=== PATIENT | female | born 1950 | race Caucasian/White ===

== ENCOUNTER → 2019-06-09 | Outpatient (CLI) | payer SELFPAY | PROVIDERS: Family Provider Nurse Practitioner; Visit Provider Nurse Practitioner | DX: I65.23 Occlusion and stenosis of bilateral carotid arteries (principal) | CPT/HCPCS: 93880 ==

== ENCOUNTER 2019-06-24 13:15 | Outpatient (CLI) | payer MEDICARE, MEDICAID, SELFPAY ==
--- NOTE | 2019-06-24 13:43 | CT_ITS ---
WS: [id number] CT CHEST TECHNIQUE: Noncontrast CT of the chest with coronal and sagittal reformatted images. CLINICAL INFORMATION: COPD, MODERATE COMPARISON: CT 8 30,019 DLP: 591.[address] scans at [facility] use at least one of these dose optimization techniques: automat ed exposure control; mA and/or kV adjustment per patient size (includes targeted exams where dose is matched to clinical indication); or iterative reconstruction. FINDINGS: Again seen is the lobulated cyst right middle lobe with a few septations and wall thickening along th e inferior margin which is unchanged. Recommend continued surveillance. Moderate chronic emphysematous changes. No acute pulmonary infiltrates. Subsegmental atelectasis righ t lung base. Aortic calcification. Coronary calcification. Calcified mediastinal nodes. No mediastina l or hilar lymphadenopathy. Adrenal glands are normal. Normal thoracic spine. CT/CT chest wo con [id number] IMPRESSION: 1. Stable lobulated cystic lesion in the right middle lobe with a small amount of soft tissue thickening along the inferior margin is unchanged. Recommend co ntinued surveillance with six-month follow-up 2. No mediastinal or hilar lymphadenopathy. 3. Chronic emphysematous changes. 4. Subsegmental atelectasis right lung base.
== END 2019-06-24 13:16 | disposition home or self-care (01) ==
PROVIDERS: Family Provider Nurse Practitioner; PCP Nurse Practitioner; Visit Provider Nurse Practitioner
DX: J43.9 Emphysema, unspecified (principal); J98.11 Atelectasis; R91.1 Solitary pulmonary nodule
CPT/HCPCS: 71250

== ENCOUNTER → 2019-11-20 09:50 | Outpatient (BNVA) | payer MEDICARE, MEDICAID, SELFPAY | PROVIDERS: Family Provider Nurse Practitioner; PCP Nurse Practitioner; Visit Provider Nurse Practitioner | DX: E78.2 Mixed hyperlipidemia (principal); I65.29 Occlusion and stenosis of unspecified carotid artery; J44.9 Chronic obstructive pulmonary disease, unspecified; F41.9 Anxiety disorder, unspecified; A60.00 Herpesviral infection of urogenital system, unspecified | CPT/HCPCS: 80053; 80061; 84443; 85025 ==

== ENCOUNTER 2019-12-16 09:08 | Outpatient (CLI) | payer MEDICARE, MEDICAID, SELFPAY ==
--- NOTE | 2019-12-16 09:18 | MM_ITS ---
WS: [id number] BILATERAL DIGITAL SCREENING MAMMOGRAPHY WITH CAD CLINICAL INFORMATION: SCREENING HISTORY: Screening mammogram. No current complaints. COMPARISON: TECHNIQUE: Bilateral CC and MLO views. FINDINGS: The breasts are composed of heterogeneous fibroglandular density tissue, which can limit the detectio n of small underlying mass lesions. No suspicious mass, asymmetry, calcifications, or architectural d istortion. No evidence of malignancy. Vascular calcification. Stable lucent centered calcification. MM/[place] [id number] IMPRESSION: BI-RADS: 2-Benign FOLLOW UP: 1 Year Follow-up Recommend return to annual screening mammography.
== END 2019-12-16 09:09 | disposition home or self-care (01) ==
LOC: RADSHAW 09:12
PROVIDERS: PCP Nurse Practitioner; Visit Provider Nurse Practitioner
DX: Z12.31 Encounter for screening mammogram for malignant neoplasm of breast (principal)
CPT/HCPCS: 77067

== ENCOUNTER → 2020-03-07 11:00 | Outpatient (BNVA) | payer MEDICARE, MEDICAID, SELFPAY | PROVIDERS: PCP Nurse Practitioner; Visit Provider Nurse Practitioner | DX: E78.2 Mixed hyperlipidemia (principal); J44.9 Chronic obstructive pulmonary disease, unspecified | CPT/HCPCS: 80053 ==

== ENCOUNTER 2020-03-15 08:16 | Outpatient (CLI) | payer MEDICARE, MEDICAID, SELFPAY ==
--- NOTE | 2020-03-15 08:45 | CT_ITS ---
WS: [id number] CT CHEST WITHOUT INTRAVENOUS CONTRAST HISTORY: 6 month f/u for 12/2019 TECHNIQUE: Contiguous 5 mm axial imaging performed on the thorax. Coronal and sagittal reformats are submitted. All CT scans at [facility] use at least one of these dose optimization techniq ues: automated exposure control; mA and/or kV adjustment per patient size (includes targeted exams wh ere dose is matched to clinical indication); or iterative reconstruction. CONTRAST: None DLP: 617.11 mGycm COMPARISON: 06/24/2019, 03/09/2019, 11/10/2018 Lungs and central airway: Marked pulmonary hyperinflation. Lobulated cystic mass in the RIGHT middle lobe measures 2.7 x 4.3 cm. Stable lateral nodular thickening since 06/24/2019. Also stable since 2018. No new nodules or mass or pneumonia. Linear scarring or atelectasis at the RIGHT lung base. Pleura: Normal. No pleural effusion. Heart and pericardium: Normal size heart. Small amount of pericardial thickening anteriorly. Mediastinum and davida: No mediastinum or hilar adenopathy. Vessels: Mild atherosclerosis aorta with no aneurysm. Pulmonary artery size is near equal to the aort a. Chest wall and lower neck: No soft tissue masses. Upper abdomen: Splenic granulomata. Osseous structures: No destructive process. CT/CT chest wo con [id number] IMPRESSION: 1. Lobulated cystic mass with soft tissue thickening is unchanged. No interval change since 11/10/2018. Recommend [address] follow-up to de monstrate long-term stability. 2. No adenopathy. 3. Severe emphysema.
== END 2020-03-15 08:17 | disposition home or self-care (01) ==
LOC: RADWPI 08:22
PROVIDERS: PCP Nurse Practitioner; Visit Provider Nurse Practitioner
DX: J44.9 Chronic obstructive pulmonary disease, unspecified (principal); R22.2 Localized swelling, mass and lump, trunk
CPT/HCPCS: 71250

== ENCOUNTER → 2020-08-09 12:17 | Outpatient (BNVA) | payer OTHER, MEDICAID, SELFPAY | PROVIDERS: PCP Nurse Practitioner; Visit Provider Nurse Practitioner | DX: J44.9 Chronic obstructive pulmonary disease, unspecified (principal); F41.9 Anxiety disorder, unspecified; A60.00 Herpesviral infection of urogenital system, unspecified; E78.2 Mixed hyperlipidemia | CPT/HCPCS: 80053; 80061; 84443; 85025 ==

== ENCOUNTER → 2020-08-10 15:43 | Outpatient (BNVA) | payer OTHER, MEDICAID, SELFPAY | PROVIDERS: PCP Nurse Practitioner; Visit Provider Nurse Practitioner | DX: M54.2 Cervicalgia (principal); M25.511 Pain in right shoulder; J44.9 Chronic obstructive pulmonary disease, unspecified; F41.9 Anxiety disorder, unspecified; A60.00 Herpesviral infection of urogenital system, unspecified; E78.2 Mixed hyperlipidemia | CPT/HCPCS: 71046; 72040; 73030 ==

== ENCOUNTER → 2020-08-16 12:06 | Outpatient (BNVA) | payer OTHER, MEDICAID, SELFPAY | PROVIDERS: PCP Nurse Practitioner; Visit Provider Nurse Practitioner | DX: M50.30 Other cervical disc degeneration, unspecified cervical region (principal); R59.9 Enlarged lymph nodes, unspecified; E55.9 Vitamin D deficiency, unspecified | CPT/HCPCS: 82306 ==

== ENCOUNTER 2020-11-03 11:09 | Outpatient (CLI) | payer MEDICARE, MEDICAID, SELFPAY ==
--- NOTE | 2020-11-03 11:18 | CT_ITS ---
WS: [id number] CT NECK TECHNIQUE: Contrast-enhanced CT of the neck with coronal and sagittal reformatted images. CLINICAL INFORMATION: R59.9 - Enlarged lymph nodes, unspecified COMPARISON: None. DLP: 640.[address] scans at [facility] use at least one of these dose optimization techniques: automat ed exposure control; mA and/or kV adjustment per patient size (includes targeted exams where dose is matched to clinical indication); or iterative reconstruction. FINDINGS: Motion degrades some images Palpable markers overlying the submandibular glands bilaterally. Submandibular glands are normal. Add itional palpable marker overlying the left parotid gland. There is a small amount of induration and e zoe in the subcutaneous soft tissues in this area and left parotid gland. Motion degrades images in this area but no evidence of intraparotid mass or lesion. Small amount of induration extends along th e left platysma. Recommend clinical correlation for left parotiditis. No evidence of drainable absces s or fluid collection. Partially visualized intracranial contents are normal. Mastoid air cells and paranasal sinuses are we ll aerated. No evidence of supraglottic or glottic mass. Normal tongue base. Normal subglottic airway . Normal thyroid gland. Lung apices are well aerated. CT/CT neck w con* [id number] IMPRESSION:Some images degraded by patient motion 1. Multiple palpable markers overlying the submandibular glands and Left parot id gland. 2. Submandibular glands are normal in appearance. 3. Mild induration and inflammatory changes about the left parotid gland exten ding along the left platysma. Recommend correlation for parotiditis. No drainab le abscess or fluid collection. 4. No evidence of supraglottic or glottic mass. 5. No cervical lymphadenopathy.
[2020-11-03] MEDS: iohexol 300 mg/mL 100 mL Btl IV (12:17)
[2020-11-03 12:18] LABS: Blood Urea Nitrogen 9 mg/dL (8-23); Glomerular Filtration Rate 99.7 mL/min (90-130)
== END 2020-11-03 11:10 | disposition home or self-care (01) ==
PROVIDERS: PCP Nurse Practitioner; Visit Provider Nurse Practitioner
DX: R59.9 Enlarged lymph nodes, unspecified (principal)
CPT/HCPCS: 70491; 82565; 84520; Q9967

== ENCOUNTER 2020-11-14 15:28 | Outpatient (CLI) | payer MEDICARE, MEDICAID, SELFPAY ==
--- NOTE | 2020-11-14 15:36 | MR_ITS ---
WS: [id number] MRI RIGHT HUMERUS NONCONTRAST TECHNIQUE: Sagittal T2, coronal T1, T2 and proton density imaging. Axial gradient PDE imaging. CLINICAL INFORMATION: S46.219A - Strain of muscle, fascia and tendon of other p... COMPARISON: None. FINDINGS: Some images degraded by motion artifact. Normal bone marrow signal in the right humerus. No acute fractures. Partially visualized rotator cuff appears intact. Tear of the long head of the biceps brachia at the musculotendinous junction with di ffuse edema and irregularity. Fluid along the proximal biceps tendon sheath. Biceps tendon is absent within the proximal bicipital groove consistent with tear which may be chronic. Subscapularis appears intact. Distal biceps tendon appears intact at the radial tuberosity.Degenerat caesar fraying of the glenoid labrum. MR/MR humerus RT wo con* [id number] IMPRESSION: 1. Proximal biceps tendon is absent within the bicipital groove consistent wit h biceps tendon tear. This may be chronic. Fluid along the biceps tendon sheath . 2. In addition, high-grade tear of the long head biceps brachi at the musculot endinous junction with acute appearing edema and irregularity. There appears to be a small amount of residual intact tendon. 3. Partially visualized rotator cuff is intact. 4. Distal biceps tendon appears intact at the radial tuberosity.
== END 2020-11-14 15:29 | disposition home or self-care (01) ==
PROVIDERS: PCP Nurse Practitioner; Visit Provider Nurse Practitioner
DX: S46.211A Strain of muscle, fascia and tendon of other parts of biceps, right arm, initial encounter (principal); X58.XXXA Exposure to other specified factors, initial encounter
CPT/HCPCS: 73218

== ENCOUNTER → 2021-01-11 12:01 | Outpatient (BNVA) | payer MEDICARE, MEDICAID, SELFPAY | PROVIDERS: PCP Nurse Practitioner; Visit Provider Nurse Practitioner Family | DX: J44.1 Chronic obstructive pulmonary disease with (acute) exacerbation (principal); Z11.52 Encounter for screening for COVID-19 | CPT/HCPCS: 87635 ==

== ENCOUNTER → 2021-03-14 16:01 | Outpatient (BNVA) | payer MEDICARE, MEDICAID, SELFPAY | PROVIDERS: PCP Nurse Practitioner; Visit Provider Nurse Practitioner | DX: F41.9 Anxiety disorder, unspecified (principal); J44.9 Chronic obstructive pulmonary disease, unspecified; A60.00 Herpesviral infection of urogenital system, unspecified; E78.2 Mixed hyperlipidemia; Z23 Encounter for immunization; M79.18 Myalgia, other site; Z12.83 Encounter for screening for malignant neoplasm of skin | CPT/HCPCS: 80053; 80061; 84443; 85025 ==

== ENCOUNTER 2021-03-20 10:43 | Outpatient (CLI) | payer MEDICARE, MEDICAID, SELFPAY ==
--- NOTE | 2021-03-20 10:45 | CT_ITS ---
WS: [id number] CT CHEST TECHNIQUE: Noncontrast CT of the chest with coronal and sagittal reformatted images. CLINICAL INFORMATION: R91.8 - Other nonspecific abnormal finding of lung field COMPARISON: March 15, 2020 DLP: 582.[address] scans at [facility] use at least one of these dose optimization techniques: automated e xposure control; mA and/or kV adjustment per patient size (includes targeted exams where dose is matc hed to clinical indication); or iterative reconstruction. FINDINGS: Again seen is the lobulated thin-walled cystic lesion in the right middle lobe measuring 2.7 x 4.3 CM . Stable slight lateral nodular thickening is unchanged. No evidence of new suspicious pulmonary pare nchymal abnormality. Advanced chronic emphysematous changes. No mediastinal or hilar lymphadenopathy. No acute pulmonary i nfiltrates. Slight subsegmental atelectasis right lower lobe. Mild thoracic curve. Mild thoracic kyph osis. A few prominent lymph nodes left axilla similar to previous. Largest measures approximately 10 mm and appears slightly progressed. Adrenal glands are normal. Small esophageal hiatal hernia. CT/CT chest wo con [id number] IMPRESSION: 1. Lobulated thin-walled cystic lesion right middle lobe is stable. No interva l change since 2019. Recommend continued surveillance with 12 month follow-up c hest CT. 2. No mediastinal or hilar lymphadenopathy. 3. Chronic advanced emphysematous changes. 4. Enlarged lymph node left axilla measures approximately 10 millimeters short axis dimension progressed compared to 2020. This is nonspecific and could be f urther evaluated ultrasound.
== END 2021-03-20 10:44 | disposition home or self-care (01) ==
PROVIDERS: PCP Nurse Practitioner; Visit Provider Nurse Practitioner
DX: R91.1 Solitary pulmonary nodule (principal); R91.8 Other nonspecific abnormal finding of lung field; R59.0 Localized enlarged lymph nodes
CPT/HCPCS: 71250

== ENCOUNTER 2021-05-22 14:04 | Outpatient (CLI) | payer MEDICARE, MEDICAID, SELFPAY ==
--- NOTE | 2021-05-22 14:15 | US_ITS ---
WS: [id number] INDICATION: Enlarged lymph nodes TECHNIQUE: Ultrasound left axilla. FINDINGS: Comparison CT chest 03/20/2021 A few prominent lymph nodes in the left axilla the largest measuring 2.0 x 0.8 0.9 cm, 1.5 x 0.4 x 0. 8 cm, and 1.2 x 0.8 x 1.0 CM. Normal preserved fatty hilum. No significant cortical thickening. These are slightly prominent but have a normal appearance. US/US soft tissue/extremity [id number] IMPRESSION: A few lymph nodes in the left axilla corresponding to the CT findin gs measure slightly prominent but have a normal appearance. If persistent clini kenneth concern, the largest lymph node could be biopsied under ultrasound
== END 2021-05-22 14:05 | disposition home or self-care (01) ==
LOC: US 14:04
PROVIDERS: PCP Nurse Practitioner; Visit Provider Nurse Practitioner
DX: R59.0 Localized enlarged lymph nodes (principal)
CPT/HCPCS: 76882

== ENCOUNTER 2021-07-24 12:24 | Outpatient (CLI) | payer MEDICARE, MEDICAID, SELFPAY ==
--- NOTE | 2021-07-24 13:30 | US_ITS ---
WS: [id number] TRANSVAGINAL PELVIC ULTRASOUND HISTORY: N95.0 - Postmenopausal bleeding COMPARISON: None available. Uterus: 5.0 cm x 3.6 cm x 1.8 cm. Small caliber anteverted uterus. No fibroid or mass. Endometrium: 0.6 cm. There is a mild bulbous widening of the endometrium towards the fundus measuring up to 6 mm. Mild peripheral increased vascularity. The remaining endometrium is very thin. Right ovary: 5.5 cm x 3.9 cm x 3.6 cm. Ovaries enlarged due to a large cystic mass associated with th e RIGHT ovary. Cyst measures 3.7 x 3.2 x 4.6 cm. No solid component. The adjacent ovary has normal va scularity. Left ovary: Not identified. No adnexal mass. No free fluid. US/US transvaginal [id number] IMPRESSION: 1. Mild bulbous enlargement of the fundal portion of the endometrium measuring 6 mm which is top normal size. Early endometrial neoplasm should be considered due to its appearance and focal nodularity.. Recommend hysteroscopy for furthe r evaluation. 2. Large RIGHT ovarian/adnexal cystic mass measures 3.7 x 3.2 x 4.6 cm. 3. LEFT ovary is not identified.
== END 2021-07-24 12:25 | disposition home or self-care (01) ==
PROVIDERS: PCP Nurse Practitioner; Visit Provider Nurse Practitioner
DX: N95.0 Postmenopausal bleeding (principal); N83.8 Other noninflammatory disorders of ovary, fallopian tube and broad ligament
CPT/HCPCS: 76830

== ENCOUNTER → 2021-08-14 15:58 | Outpatient (BNVA) | payer MEDICARE, MEDICAID, SELFPAY | PROVIDERS: PCP Nurse Practitioner; Visit Provider Obstetrics & Gynecology | DX: N83.8 Other noninflammatory disorders of ovary, fallopian tube and broad ligament (principal) | CPT/HCPCS: 86304 ==

== ENCOUNTER → 2021-08-17 09:52 | Outpatient (BNVA) | payer MEDICARE, MEDICAID, SELFPAY | PROVIDERS: PCP Nurse Practitioner; Visit Provider Nurse Practitioner | DX: E78.2 Mixed hyperlipidemia (principal); Z12.39 Encounter for other screening for malignant neoplasm of breast | CPT/HCPCS: 80053 ==

== ENCOUNTER → 2021-08-29 08:04 | Outpatient (BNVA) | payer MEDICARE, MEDICAID, SELFPAY | PROVIDERS: PCP Nurse Practitioner; Visit Provider Obstetrics & Gynecology | DX: N95.0 Postmenopausal bleeding (principal) | CPT/HCPCS: 88305 ==

== ENCOUNTER → 2021-09-06 09:58 | Outpatient (BNVA) | payer MEDICARE, MEDICAID, SELFPAY | PROVIDERS: PCP Nurse Practitioner; Visit Provider Obstetrics & Gynecology | DX: N83.201 Unspecified ovarian cyst, right side (principal) | CPT/HCPCS: 76830 ==

== ENCOUNTER → 2021-10-02 08:48 | Outpatient (BNVA) | payer MEDICARE, MEDICAID, SELFPAY | PROVIDERS: PCP Nurse Practitioner; Visit Provider Obstetrics & Gynecology | DX: N95.0 Postmenopausal bleeding (principal); N83.201 Unspecified ovarian cyst, right side; Z01.812 Encounter for preprocedural laboratory examination; Z20.822 Contact with and (suspected) exposure to COVID-19 | CPT/HCPCS: 80053; 81000; 85025; 86850; 86900; 87635 ==

== ENCOUNTER 2021-10-05 06:39 | Inpatient (IN) | payer MEDICARE, MEDICAID, SELFPAY ==
--- NOTE | 2021-10-02 10:10 | P.ANESASSM_ITS ---
Pre-Anesthetic Assessment Height/Weight: Height 1.65 m Weight 49.895 kg Operation Date: 10/05/21 12:00 Proposed Procedures p Total Abdominal Hysterectomy(Not Applicable) - Lorenzo Agarwal MD Familial anesthetic complications: Shallow breathing during her colonoscopy Social No alcohol and No tobacco former smoker Exam alert, oriented x 3, clear to auscultation bilaterally and regular rate & rhythm Airway Mallampati: Class II Dentition: false Pulmonary Chronic Obstructive Pulmonary Disease (not on oxygen, no steroids within last year, no hospitalizations) CV/HEM None reported None reported Hepatic None reported GI None reported Metabolic None reported Musc/skel None reported Neuropsych carotid stenosis Anesthetic Plan ASA status: 3 Anesthesia: General Risk of > 500 ml blood loss (7ml/kg in children): No Medications/Allergies Home Medications Medication Instructions Recorded Confirmed Last Taken Type Lactobacillus acidophilus PO DAILY 11/19/19 10/02/21 Unknown History [Probiotic Acidophilus] garlic PO 11/19/19 10/02/21 Unknown History magnesium PO 11/19/19 10/02/21 Unknown History coq10 DIRECTED 08/14/21 10/02/21 Unknown History acyclovir 200 mg capsule 200 mg PO DAILY #30 cap 08/17/21 10/02/21 Unknown Rx albuterol sulfate 90 mcg/actuation 2 puff INHALATION QID PRN #6.7 gm 08/17/21 10/02/21 Unknown Rx aerosol inhaler (Ventolin HFA) budesonide 180 mcg/actuation 1 inh INHALATION BID #1 each 08/17/21 10/02/21 Unknown Rx breath activated powder inhaler (Pulmicort Flexhaler) doxepin 100 mg capsule 100 mg PO .at bedtime #30 cap 08/17/21 10/02/21 Unknown Rx paroxetine HCl 20 mg tablet 20 mg PO DAILY #30 tab 08/17/21 10/02/21 Unknown Rx tiotropium 2.5 mcg-olodaterol 2.5 2 puff INHALATION Q24H #4 g 08/17/21 10/02/21 Unknown Rx mcg/actuation mist for inhalation (Stiolto Respimat) omega-3 fatty acids 1,000 mg PO DAILY 10/02/21 10/02/21 Unknown History red yeast rice 600 mg capsule 600 mg PO DAILY 10/02/21 10/02/21 Unknown History Allergies Allergy/AdvReac Type Severity Reaction Status Date / Time atorvastatin [From Lipitor] AdvReac Myalgia Verified 10/02/21 09:38 [facility] Anesthesia Medical History (Updated 08/29/21 @ 08:58 by Lorenzo Agarwal MD) Anxiety Carotid artery stenosis COPD, moderate Herpes, genital Mixed hyperlipidemia Surgical History History of tubal ligation Family History Mother Diabetes Sister Diabetes Hypertension Stroke Heart disease Breast cancer 70's Family/Other Diabetes maternal uncle Denies family history of Colon cancer Ovarian cancer Clotting disorder Hyperlipidemia Anesthesia complication Bleeding disorder Uterine cancer Thyroid condition Social History Smoking and tobacco status: former smoker Second hand smoke exposure: No Smoking risk assessment/counseling performed?: No Alcohol intake: never Desire information about alcohol rehabilitation?: No Counseling given: No Desire information about substance/drug rehabilitation?: No Counseling given: No Adopted: No Caregiver/support person: No Lives independently: Yes Household members: none Housing: House Marital status: Single Number of children: 1 service: No Current occupational status: disabled Pets and animals: Yes History of recent travel: No Current gender identity: Female Data Anesthesia Cardiac Studies: No Data to Display
[2021-10-05] VITALS (31 sets, daily range): BP systolic 89–170; BP diastolic 57–92; PULSE 75–95; RESP 13–23; TEMP 36.2–37.2; O2SAT 90–100; BMI 18.3
--- NOTE | 2021-10-05 07:00 | W.PM.OPSUD ---
Surgery/Procedure H&P Update DATE OF PROCEDURE: October 05, 2021 DATE H&P PERFORMED: 10/02/21 H&P UPDATE INFORMATION: I have reviewed H&P completed within last 30 days, I have examined patient prior to procedure and No changes to prior documentation PREOP DIAGNOSIS: Right ovarian mass, postmenopausal bleeding PLANNED PROCEDURE: Operation Date: 10/05/21 08:00 Proposed Procedures p Total Abdominal Hysterectomy and bilateral salpingo-oopherectomy(Not Applicable) - Lorenzo Agarwal MD
[2021-10-05] MEDS: sodium chloride 0.9% 500 ML IV (07:28)
[2021-10-05] MEDS: sodium chloride 0.9% 1,000 ML 30 ML IV (07:30)
[2021-10-05] MEDS: enoxaparin 30 mg/0.3 mL Syringe SUBCUT (07:32)
[2021-10-05] MEDS: scopolamine 1.5 Patch 1 PATCH TRANSDERMA (07:40)
--- NOTE | 2021-10-05 07:52 | P.ANESUD_ITS ---
Pre-Anesthetic Update Pre-Anesthetic Assessment: Date of Surgery/Procedure: 10/05/21 Preop Deonna gnosis: Right ovarian mass, postmenopausal bleeding Proposed Procedure: Operation Date: 10/05/21 08:00 Proposed Procedures p Total Abdominal Hysterectomy and bilateral salpingo-oopherectomy(Not Applicable) - Lorenzo Agarwal MD Any changes to Pre-Anesthetic Assessment?: No Last Intake: Intake Last Liquid Date 10/04/21 Last Liquid Time 18:00 Last Solid Date 10/04/21 Last Solid Time 18:00 Vitals: Temperature 97.2 F L 10/05/21 06:39 Temperature Source Temporal Artery S can 10/05/21 06:39 Pulse Rate 92 10/05/21 06:39 Respiratory Rate 18 10/05/21 06:39 Blood Pressure 135/75 10/05/21 06:39 Blood Pressure Estela n 95 10/05/21 06:39 Pulse Oximetry 95 10/05/21 06:39 Oxygen Delivery Me thod 10/05/21 06:50 Exam: Pre-Anes Outpt Exam: alert, oriented x 3, clear to auscultation bilaterally and regular rate & rhythm Cardiac Studies: No Data to Display
[2021-10-05] MEDS: ceFOXitin 2,000 MG in sodium chloride 0.9% (plus) 50 ML 100 MG IV (08:11)
--- NOTE | 2021-10-05 09:52 | P.OP_ITS ---
Operative Report Date of procedure: October 05, 2021 Pre-op diagnosis: Preop Diagnosis Right ovarian mass/cysts, postmenopausal bleeding Post-op findings: Same as above Procedure done: Total abdominal hysterectomy with bilateral salpingo-oophorectomy Specimens removed/disposition: Uterus, left and right fallopian tube, left and right ovaries Pathology: Same as above Surgeon: Lorenzo Agarwal MD Estimated blood loss (mL): 25 IV fluids (mL): 1,000 Urine output (mL): 200 Complications: None Findings: Enlarged right cystic ovary Procedure: The patient was taken to the operating room, and after adequate level of general anesthesia was achieved, the patient was placed in the Trendelenburg position, prepped and draped in the usual sterile fashion. Subsequently, a Pfannenstiel incision was made and the incision was taken down to the fascia. The fascia was opened up sharply. The fascia was extended to the length of the incision using the Oneill scissors. At this time, the rectus muscles were dissected from the fascia superiorly and inferiorly to the symphysis pubis. The midline rectus muscles were opened sharply and extended superiorly and inferiorly. The peritoneum was visualized, grasped, opened sharply, and extended superiorly and inferiorly towards the bladder. The abdominal contents were packed superiorly away from the operative site using the lap packs. At this time, the pelvic orga ns were noted. The inferior and superior blades were placed in place on the Richard self-retaining retractor. Bowel was packed away from the operative site. The fundus of the uterus was then grasped with a triple-tooth tenaculum and retracted out of the pelvic cavity into the abdominal site. At this point, Elizabeth clamps were placed in both right and left adnexal regions. Subsequently, using the Enseal cautery unit, the round ligaments were grasped, cauterized, and dissected. The bladder flap was then formed and the bladder flap was pushed away down anteriorly over the lower uterine segment, pushed away from the operative site on both the right and left sides. Subsequently, the posterior leaf of the broad ligament was opened sharply and the Enseal instrument was then placed below the level of the ovary in both the right and left side, care being taken not to damage bowel or uterus and the infundibulopelvic ligament was then grasped, cauterized, and again dissected. Further dissection of the broad ligament was carried down posteriorly towards the uterine vessels. The bladder was pushed inferiorly down towards the vagina. Subsequently, the uterine vessels were then grasped again with the Enseal machine, cauterized, and dissected. The cardinal ligaments were further grasped, dissected, and suture ligated, again with the Enseal machine. At that point, the Enseal machine instrument was stopped and straight Zeppelin clamps were used on the cardinal ligaments down towards the uterosacral ligaments. The cardinal ligaments were grasped, dissected with a scalpel and then ligated with transfixion sutures with #1 Vicryl suture down to the uterosacral ligaments. The uterosacral ligaments were grasped, dissected, and suture ligated again with #1 Vicryl suture and transfixion sutures. At that time, the bladder had been pushed over the vagina and at this time right-angle Zeppelin clamps were placed on the vagina at the level of the cervix, and using the Waleska scissors, the cervix was dissected away from the vagina. At this time, the vaginal cuff was then closed using interrupted sutures of #1 Vicryl suture from the midline to each lateral corner. After the good hemostasis had been achieved in the vaginal cuff, both the right and left adnexa was visualized and no more bleeding was noted. The cuff was intact with no bleeding noted. The bladder was visualized and no bleeding was noted. Seprafilm was then placed over the vaginal cuff. The Shereen self- retaining retractor was removed as well as the anterior and inferior blades. The lap packs were removed, and at this time, general closure of the abdomen was carried out. The peritoneum was closed with a 2-0 Vicryl suture and continuous running suture. The fascia was closed using a #1 Vicryl suture from each corner to the midline. Subcutaneous tissue was cauterized. No bleeding was noted. The subcutaneous tissue was then reapproximated using plain sutures and interrupted sutures, and the skin was closed using 4-0 Vicryl suture in a Flo needle. The patient tolerated the procedure well and was transferred to the recovery room in excellent condition. The patient returned to the floor for recovery.
--- NOTE | 2021-10-05 10:08 | SUR.PHASEI ---
1003 Bilat SCDs on pump and working
[2021-10-05] MEDS: ondansetron 2 mg/ML SDV 2 mL 4 MG IVP ×2 (10:46→10:55)
[2021-10-05] MEDS: fentaNYL 50 mcg/mL INJ 2mL IVP (11:00)
[2021-10-05] MEDS: metoclopramide 5 mg/mL SDV 2 mL 10 MG IVP (11:27)
--- NOTE | 2021-10-05 12:10 | ANE.PACU2 ---
Inpatient post-anesthesia follow up: Airway intact: Yes Vital signs: Temperature 98.2 F Pulse Rate 80 Respiratory Rate 18 Blood Pressure 142/68 Pulse Oximetry 93 Oxygen Delivery Me thod Room Air Oxygen Flow Rate 2 Fraction of Inspir ed Oxygen Hydration adequate: Yes Nausea and vomiting: No Pain level: 4 Mental status: Baseline
[2021-10-05] MEDS: ketorolac 30 mg/mL INJ IVP ×2 (14:01→18:36)
[2021-10-05] MEDS: dextrose 5%-lactated ringers 1,000 ML 125 ML IV ×2 (14:01→23:35)
[2021-10-05] MEDS: docusate sodium 100 mg Capsule PO (18:35)
[2021-10-05] MEDS: HYDROcodone-acetaminophen 5-325 mg Tablet PO (18:35)
[2021-10-05] MEDS: doxepin 50 mg Capsule 100 MG PO (21:53)
[2021-10-06] VITALS (7 sets, daily range): BP systolic 77–92; BP diastolic 40–52; PULSE 78–96; RESP 15–22; TEMP 36.6–37.2; O2SAT 90–92
[2021-10-06] MEDS: sodium chloride 0.9% 500 ML IV (05:17)
[2021-10-06 05:18] LABS: Hemoglobin 8.6 g/dL (11.5-15.3); Mean Corpuscular HGB Conc 33.1 g/dL (30.0-36.0); Mean Corpuscular Hemoglobin 32.2 pg (28.0-34.0); Mean Corpuscular Volume 97.4 fl (81-99); Platelet Count 189 10^3/cmm (130-400); Red Blood Count 2.67 10^6/uL (4.1-5.3); Red Cell Distribution Width 13.2 % (12.1-15.1); White Blood Count 9.2 10^3/uL (4.0-10.0)
[2021-10-06] MEDS: ketorolac 30 mg/mL INJ IVP (05:55)
--- NOTE | 2021-10-06 08:00 | PC.NURSE ---
Patient reports she just used her home inhalers. o2 saturation initially 89%. Patient encouraged to take several deep breaths and to cough. o2 saturation up to 92% after that.
[2021-10-06] MEDS: docusate sodium 100 mg Capsule PO ×2 (10:06→17:23)
[2021-10-06] MEDS: omega-3 fatty acids 1,000 mg Capsule 1000 MG PO (10:06)
[2021-10-06] MEDS: acyclovir 400 mg Tablet 200 MG PO (10:06)
[2021-10-06] MEDS: PARoxetine 20 mg Tablet PO (10:06)
--- NOTE | 2021-10-06 10:18 | PC.NURSE ---
Diet Advanced Diet was advanced at this time due to patient stating she had passed gas. Order was placed for regular diet at 1018.
--- NOTE | 2021-10-06 11:56 | P.PN_ITS ---
Subjective Subjective: Mrs. Camarillo 70-year-old female is status post total abdominal hysterectomy with bilateral salpingo-oophorectomy postoperative day 1. Refers no pain. Vitals/I&O/Wt Last Vital Signs Temp 98.4 F 10/06/21 07:59 Pulse 96 10/06/21 10:28 Resp 22 H 10/06/21 10:28 BP 92/50 10/06/21 07:59 Pulse Ox 92 10/06/21 10:28 10/05/21 10/06/21 10/06/21 22:59 06:59 14:59 Intake Total 1000 / 2150 1212.5 / 3362.5 787.5 / 787.5 Output Total 400 / 1025 425 / 1450 200 / 200 Balance 600 / 1125 787.5 / 1912.5 587.5 / 587.5 Weight last 48 hrs Weight 49.895 kg Physical Exam Narrative: GA: Alert and oriented ?3. HEENT: WNL. Heart: Regular rate and rhythm. Lungs: Clear to auscultation bilaterally. Abdomen: Bowel sounds present, nontender, minimal tenderness, incision clean and dry, no redness, pain or edema. TRAIN RESERVATION CLERK: No bleeding. Extremities: No edema, no cyanosis, no calves pain. Urinary Catheter Management: Sotomayor: Cath Placed During This Visit: yes Urinary Catheter Date of Insertion: 10/05/21 Urinary Catheter Time of Insertion: 08:25 Data : 10/06/21 05:00 A&P Assessment and plan (1) Status post abdominal hysterectomy and salpingo-oophorectomy: Mrs. Camarillo 70-year-old female status post total abdominal hysterectomy and bilateral salpingo-oophorectomy postoperative day 1. Due to right ovarian cystic mass. She is afebrile hemodynamically stable. Tolerating diet well. Ambulating without difficulty. Urine output adequate. Status: Acute Plan Continue postop observation. Plan discharge home tomorrow. Attestations Medical Necessity Statement*: In my professional opinion per admitting Coding Level of Care Code Acute [employer] for Shania Fwd Diagnoses Status post abdominal hysterectomy and salpingo-oophorectomy
[2021-10-06] MEDS: ibuprofen 800 mg tablet PO ×2 (13:14→20:34)
[2021-10-06] MEDS: doxepin 50 mg Capsule 100 MG PO (20:34)
--- NOTE | 2021-10-06 22:37 | PC.NURSE ---
Pt's primary nurse notified of BP.
[2021-10-07 04:28] VITALS: BP 89/49; PULSE 97; RESP 19; TEMP 36.8; O2SAT 91
[2021-10-07] MEDS: ibuprofen 800 mg tablet PO (05:09)
[2021-10-07] MEDS: acyclovir 400 mg Tablet 200 MG PO (09:35)
[2021-10-07] MEDS: docusate sodium 100 mg Capsule PO (09:35)
[2021-10-07] MEDS: PARoxetine 20 mg Tablet PO (09:35)
[2021-10-07] MEDS: omega-3 fatty acids 1,000 mg Capsule 1000 MG PO (09:35)
[2021-10-07 09:36] VITALS: BP 86/43; PULSE 65; RESP 16; TEMP 36.6; O2SAT 90
--- NOTE | 2021-10-07 11:48 | PM.OBGYDC ---
Discharge Providers WELT EDGE ROUNDER Date of Admission: 10/05/21 06:39 Date of Discharge: 10/07/21 Attending Provider at Admission: Lorenzo Agarwal MD Attending Provider at Discharge: Lorenzo Agarwal MD Primary WELT EDGE ROUNDER: Lorenzo Agarwal MD Primary Care Provider: NEVA Haas Diagnoses at Discharge Discharge Diagnosis (1) Status post abdominal hysterectomy and salpingo-oophorectomy: Status: Acute Reason for Visit Reason for Visit: Brief History: Mrs. Camarillo 70-year-old female, with a history of postmenopausal bleeding and persistent a right cystic ovarian mass. Ova 1 test was low risk. Hospital Course Hospital Course Mrs. Rabia Aragon-year-old female admitted for planned total abdominal hysterectomy with bilateral salpingo-oophorectomy. The procedures were performed without complication. Postop observation has been uneventful. She is afebrile and hemodynamically stable postoperative day 2. Tolerating diet well. Ambulating without difficulty. Have not been taking any pain medication. Physical Exam Narrative: GA: Alert and oriented ?3. HEENT: WNL. Heart: Regular rate and rhythm. Lungs: Clear to auscultation bilaterally. Abdomen: Bowel sounds present, minimal tenderness, incision clean and dry, no redness, pain or edema. [employer] PROFESSOR: No bleeding. Extremities: No edema, no cyanosis, no calves pain. Urinary Catheter Management: Sotomayor: Cath Placed During This Visit: yes Urinary Catheter Date of Insertion: 10/05/21 Urinary Catheter Time of Insertion: 08:25 History History History 1 Term 1 Miscarriages/Ectopic 0 0 Living Children 1 Discharge Data Studies Completed and Pending Pending at discharge Category Date Time Status Pathology: Surgical [PTH] Routine Pth 10/05/21 09:27 Received Laboratory Results WBC 9.2 10^3/uL (4.0-10.0) 10/06/21 05:00 RBC 2.67 10^6/uL (4.1-5.3) L 10/06/21 05:00 Hgb 8.6 g/dL (11.5-15.3) L 10/06/21 05:00 Hct 26.0 % (37.0-47.0) L 10/06/21 05:00 MCV 97.4 fl (81-99) 10/06/21 05:00 MCH 32.2 pg (28.0-34.0) 10/06/21 05:00 MCHC 33.1 g/dL (30.0-36.0) 10/06/21 05:00 RDW 13.2 % (12.1-15.1) 10/06/21 05:00 Plt Count 189 10^3/cmm (130-400) 10/06/21 05:00 MPV 11.0 fL (7.4-10.4) H 10/06/21 05:00 Vitals Last Vital Signs Temp 98 F 10/07/21 09:36 Pulse 65 10/07/21 09:36 Resp 16 10/07/21 09:36 BP 86/43 10/07/21 09:36 Pulse Ox 90 10/07/21 09:36 Discharge Plan Discharge Patient Disposition: Home Condition: Stable Prescriptions: New hydrocodone-acetaminophen 5-325 mg tablet 1 tab PO Q4H PRN (Reason: pain) Qty: 15 0RF acetaminophen 325 mg capsule 325 mg PO Q4H PRN (Reason: fever or pain) Qty: 60 0RF ferrous sulfate [Iron (ferrous sulfate)] 325 mg (65 mg iron) tablet 325 mg PO BID Qty: 60 0RF docusate sodium [Colace] 100 mg capsule 100 mg PO BID Qty: 60 0RF ibuprofen 800 mg tablet 800 mg PO TID PRN (Reason: pain) Qty: 60 0RF Continued garlic PO 0RF magnesium PO 0RF Lactobacillus acidophilus PO DAILY 0RF coq10 capsule as directed 0RF Rx Instructions: daily Stiolto Respimat 2.5-2.5 mcg/actuation mist 2 puff inhalation Q24H Qty: 4 4RF acyclovir 200 mg capsule 200 mg PO DAILY Qty: 30 5RF albuterol sulfate [Ventolin HFA] 90 mcg/actuation HFA aerosol inhaler 2 puff INHALATION QID PRN (Reason: shortness of breath or wheezing) Qty: 6.7 5RF Pulmicort Flexhaler 180 mcg/actuation aerosol powdr breath activated 1 inh INHALATION BID Qty: 1 5RF doxepin 100 mg capsule 100 mg PO .at bedtime Qty: 30 5RF red yeast rice 600 mg Capsule 600 mg PO DAILY 0RF Rx Instructions: give with meal/snack Fish Oil Capsule 1,000 mg PO DAILY 0RF Paxil 20 mg tablet 20 mg PO DAILY 0RF Discharge Orders: Discharge Order (Routine); Ordered 10/07/21 Ordered By: Lorenzo Agarwal Referrals: Lorenzo Agarwal MD [Physician] - 2 weeks Discharge Diet: Advance as tolerated and Usual diet Discharge Activity: Limit activity as instructed Patient Instructions: Opioid Safety, Hysterectomy (GEN), Salpingo-Oophorectomy (GEN) Activity Restrictions/Additional Instructions: 1. Please call [facility] on next working day to make your post-operative appointment in 2 weeks. 2. Please stay home until you come back to the clinic on first post-operative check up. 3. Please follow instructions on your medications CAREFULLY. 4. If you have abdominal incision, do not cover it unless dressing is necessary because of drainage. OK to shower, but avoid bath. Leave steri-strips until they fall off. If they are still on one week after surgery, you may remove them. 5. If you had vaginal surgery or vaginal repair, Dr. Agarwal may instruct you to take SITZ bath. 6. Yellow, blood tinged odorous vaginal discharge is usually normal after hysterectomy or vaginal surgeries. 7. No sexual intercourse, tampons, or douches until you are completely released from the post-operative care. 8. Avoid constipation by eating right and maybe using some Metamucil or Milk of Magnesia. 9. All prescription refills are given during the working hours. Please do no wait till it runs out. Call the clinic at [phone] before your medication runs out. The clinic will get in touch with your doctor to prescribe medications if necessary. 10. Please remain within 40 mile radius from our hospital because emergencies do happen now and then during the post-operative period. 11. If you have stairs at home, take one step at a time slowly and minimize the number of trips. It helps to stay in one floor for the next few days. No lifting except what you can lift by one hand until you are released from the post-operative care. 12. Driving is discouraged until you are well healed. It may be 3-4 weeks before you feel strong enough to drive. You should be able to turn and look through the rear window without pain and you should be able to push the brake pedal very hard without pain before you drive. No fast rules, but SAFETY should be your primary concern. DO NOT drive if you are on sedating medications such as narcotics. 13. Call the clinic (during working hours) to make urgent appointment or go to the Emergency room, if any of the following occurs: i. Vaginal bleeding becomes heavy, more than a period. ii. Incision becomes red and sore, or drains pus. iii. Your temperature is over 100.4 or you have chill. iv. IV site becomes red and swollen (a little ``knot?? is usually OK) v. Persistent nausea and vomiting vi. Persistent constipation or diarrhea vii. Rash or allergic reaction to medications. Discharge Attestations WELT EDGE ROUNDER Time Spent in Discharge Care*: greater than 30 min Coding Level of Care Code Acute Straddle Bug for Shania Fwd History Expanded Problem Focused Exam Expanded Problem Focused Medical Decision Making Low Complexity Diagnoses Status post abdominal hysterectomy and salpingo-oophorectomy
[2021-10-07 12:57] VITALS: BP 95/58; PULSE 95; RESP 16; TEMP 36.9; O2SAT 91
[2021-10-07 13:15] VITALS: BP 95/58; PULSE 95; RESP 16; TEMP 36.9; O2SAT 91
== END 2021-10-07 13:15 | disposition home or self-care (01) | DRG 743 ==
LOC: OBGYN 10:30
PROVIDERS: Admitting Provider Obstetrics & Gynecology; PCP Nurse Practitioner; Visit Provider Obstetrics & Gynecology
PROC: 0UT90ZZ Resection of Uterus, Open Approach (ICD-10-PCS; CPT 58150; principal; 2021-10-05 08:00)
DX: N83.9 Noninflammatory disorder of ovary, fallopian tube and broad ligament, unspecified (principal); N95.0 Postmenopausal bleeding
CPT/HCPCS: 36415; 51702; 80053; 81000; 85025; 85027; 86850; 86900; 87635; 88307; C9290; J0694; J1100; J1650; J1885; J2405; J2704; J2710; J2765; J3010; J3490; J7030; J7040; J8499; Q9968

== ENCOUNTER 2021-10-10 14:29 | Emergency (ER) | payer MEDICARE, MEDICAID, SELFPAY ==
[2021-10-10] VITALS (12 sets, daily range): BP systolic 106–134; BP diastolic 52–67; PULSE 88–102; RESP 16–22; TEMP 36.5–37.5; O2SAT 91–96; BMI 19.1
--- NOTE | 2021-10-10 14:33 | XRR_ITS ---
PROCEDURE INFORMATION: Exam: XR Chest Exam date and time: 10/10/2021 3:41 PM Age: 70 years old Clinical indication: Shortness of breath; Additional info: SOB TECHNIQUE: Imaging protocol: XR of the chest. Views: 1 view. COMPARISON: CT chest con [id number] 03/20/2021 10:53 AM FINDINGS: Lungs: Blunting of bilateral CP angle similar to hose suspender cutter image on recent CT suggesting minimal pleuroparenchymal scarring/thickening. Hyperinflation/COPD with emphysematous changes bilaterally similar to CT exam. No obvious lung consolidation. Pleural spaces: No pneumothorax. Heart/Mediastinum: No cardiomegaly. Bones/joints: probable mild osteopenia. XR/XR chest 1V portable [id number] IMPRESSION: No acute findings. Other nonacute findings as described.
--- NOTE | 2021-10-10 17:54 | W.ED.SOB ---
HPI - SOB/Dyspnea General: Chief Complaint: Shortness of Breath/Dyspnea Stated Complaint: SOB, Weakness Time Seen by Provider: 10/10/21 17:54 History of Present Illness: HPI Narrative: Ms. Camarillo is a 70-year-old lady with significant past medical history of COPD, hypertension, hyperlipidemia, recent abdominal hysterectomy with salpingo-oophorectomy on 10/05 who presents to the emergency department due to shortness breath. At baseline she does have some degree of shortness of breath however this has significantly worsened since her surgery. She endorses more symptoms with exertion and limitations in distance that she can walk. She does have a mildly productive cough associated with this and subsequently felt warm however no measured temperature. She initially had difficulty with constipation however has had bowel movements since using magnesium citrate and does not have abdominal discomfort outside expected range. At times she feels lightheaded generalized malaise. Intensity symptoms is moderate. Course has been worsening. No other specific changes in health, exacerbating, or alleviating factors identified. Onset (ago): day(s) Context: other Timing: constant and progressively worsening Severity: moderate Exacerbating factors: exertion Review of Systems General: Reports: 10 or more systems reviewed and unremarkable except in HPI and below PFSH ED PFSH: Medical History (Updated 10/10/21 @ 22:21 by Clifton Kellogg MD) Anxiety Carotid artery stenosis COPD, moderate Herpes, genital Mixed hyperlipidemia Surgical History History of tubal ligation Family History Mother Diabetes Sister Diabetes Hypertension Stroke Heart disease Breast cancer 70's Family/Other Diabetes maternal uncle Denies family history of Colon cancer Ovarian cancer Clotting disorder Hyperlipidemia Anesthesia complication Bleeding disorder Uterine cancer Thyroid condition Social History Smoking and tobacco status: former smoker Second hand smoke exposure: No Smoking risk assessment/counseling performed?: No Alcohol intake: never Desire information about alcohol rehabilitation?: No Counseling given: No Desire information about substance/drug rehabilitation?: No Counseling given: No Adopted: No Caregiver/support person: No Lives independently: Yes Household members: none Housing: House Marital status: Single Number of children: 1 service: No Current occupational status: disabled Pets and animals: Yes History of recent travel: No Current gender identity: Female Physical Exam Const: COMMON NORMALS: alert GENERAL APPEARANCE: cooperative, well developed and ill appearing (Mildly) HENMT: COMMON NORMALS: normocephalic and atraumatic HEAD & SCALP: normocephalic and atraumatic THROAT: posterior oropharynx normal Eye: COMMON NORMALS: conjunctivae normal CONJUNCTIVA: Yes conjunctivae normal SCLERA: sclerae normal Neck/C-Spine: COMMON NORMALS: supple GENERAL: Yes trachea midline Resp: COMMON NORMALS: normal respiratory effort EFFORT & INSPECTION: Yes able to speak in complete sentences Cardio: COMMON NORMALS: regular rate and regular rhythm RATE: regular rate RHYTHM: regular rhythm GI: COMMON NORMALS: Soft to palpation PALPATION: Yes Soft to palpation and Yes Tenderness to palpation present (GI) (Within expected range for postoperative) Extremity: GENERAL: Yes normal exam except as noted and No edema Neuro: COMMON NORMALS: moves all extremities SENSORIUM/ORIENTATION: Yes alert and No Orientation impaired Psych: COMMON NORMALS: mental status grossly normal and Normal thought process present THOUGHT PROCESS: Normal thought process present Skin: NARRATIVE SKIN EXAM: Surgical incision appears well-healing, bruising is noted with gravity dependent tracking Course ED course: - Patient was seen and evaluated by me at bedside - Patient placed on cardiac monitors, IV access obtained - Initial evaluation notable for exam as above - Labs and xrays personally interpreted by me -RT treatment ordered - Labs notable for no leukocytosis, improving hemoglobin. No acute metabolic derangement to explain symptoms. Given recent history of surgery in constellation with shortness of breath D-dimer was warranted and was elevated. - Imaging notable for no lobar consolidation or acute finding identified on chest x-ray. CT scan negative for no evidence of pulmonary embolism. There is some COPD and known stable thin-walled cyst. Abdomen likely within expected postoperative limits without evidence of acute complication. This was discussed with patient - Upon serial reexamination after treatment the patient was improved - Based on patient history, evaluation, and testing as interpreted the most likely cause of the patient's condition is COPD exacerbation -I will prescribe the patient albuterol as well as antibiotics. Risk-benefit discussion regarding steroids in the context of surgery and wound healing I will write patient prescription however we will see how she does for a day or 2 just with the albuterol and antibiotics with instructions to start taking steroids if continues to be short of breath. Did discuss this with Dr. Agarwal who was agreeable. - The results of ED evaluation were discussed with the patient including prescriptions and/or symptomatic cares (if applicable) including appropriate and responsible use, followup plan, and return precautions. The patient verbalized understanding and felt safe for discharge. - Patient discharged in satisfactory condition. Note: Click bubbles or prepopulated godinez in note writing are used for assistance with data collection and billing and are inherently more limited than narrative and other text portions of this note. Please use narrative for additional clinical history and defer to narrative/free test for any case of contradictory information. If information appears in only free text or click bubble it should be considered present or absent as reported. Please contact note commercial insurance underwriter for clarifications of clinical information or contradictory information. MDM is a brief summary, contradictory or erroneous seeming information should be clarified and full note should be reviewed. Vital Signs: Vital signs: Vital Signs Temperature 97.7 F 10/10/21 18:00 Pulse Rate 94 10/10/21 22:00 Respiratory Rate 22 H 10/10/21 22:00 Blood Pressure 134/52 10/10/21 22:00 Pulse Oximetry 93 10/10/21 22:00 MDM - SOB/Dyspnea Medical Decision Making 70-year-old lady with recent surgical procedure presenting with shortness of breath. Does have a history of COPD. No other obvious cause identified. Will be treated with COPD exacerbation with modification to steroids given recent surgical procedure and risks versus benefit regarding healing. Satisfactory for outpatient management given improvement with treatment in the emergency department. Medical Records I reviewed the patient's medical records. Lab Data I reviewed the patient's lab results. : 10/10/21 18:30 10/10/21 18:30 Labs/Radiology: Radiology Impressions Chest X-Ray 10/10/21 14:33 IMPRESSION: No acute findings. Other nonacute findings as described. Chest/Abdomen/Pelvis CT 10/10/21 19:40 IMPRESSION: 1. Pulmonary emphysema/COPD with stable thin-walled cyst/pneumatocele. No acute lung consolidation or ground-glass opacity. 2. Cardiac findings as above. 3. Stable nonspecific slightly prominent mediastinal and left axillary lymph nodes as described. IMPRESSION: 1. Status post recent hysterectomy by given history. Mildly hyperdense collection in the pelvis, likely hematoma which extends along the pelvic sidewall and into the bilateral lower quadrant/inferior colic gutter region. No definite enhancing rim to suggest imaging signs of drainable abscess however clinical correlation and continued follow-up should be obtained. There is trace peritoneal perihepatic perisplenic fluid. No additional drainable fluid collections are otherwise identified. 2. Pneumoperitoneum which presumably is related to recent postsurgical status at this time however continued follow-up should also be obtained. 3. Colonic diverticulosis without acute diverticulitis or other acute bowel findings. Small to moderate stool burden. 4. Soft tissue findings as above. Laboratory Results WBC 7.9 10^3/uL (4.0-10.0) 10/10/21 18: RBC 2.84 10^6/uL (4.1-5.3) L 10/10/21 18:30 Hgb 9.2 g/dL (11.5-15.3) L 10/10/21 18: Hct 27.3 % (37.0-47.0) L 10/10/21 18: MCV 96.1 fl (81-99) 10/10/21 18: MCH 32.4 pg (28.0-34.0) 10/10/21 18: MCHC 33.7 g/dL (30.0-36.0) 10/10/21 18: RDW 13.5 % (12.1-15.1) 10/10/21 18: Plt Count 324 10^3/cmm (130-400) 10/10/21 18: MPV 10.8 fL (7.4-10.4) H 10/10/21 18:30 Neut % (Auto) 69.8 % 10/10/21 18:30 Lymph % (Auto) 17.1 % 10/10/21 18: Gove % (Auto) 9.2 % 10/10/21 18: Eos % (Auto) 3.2 % 10/10/21 18: Baso % (Auto) 0.4 % 10/10/21 18:30 Neut # (Auto) 5.53 10^3/uL (1.8-7.7) 10/10/21 18: Lymph # (Auto) 1.4 10^3/uL (0.8-4.8) 10/10/21 18:30 Gove # (Auto) 0.7 10^3/uL (0.2-0.9) 10/10/21 18:30 Eos # (Auto) 0.3 10^3/uL (0.0-0.8) 10/10/21 18:30 Baso # (Auto) 0.0 10^3/uL (0.0-0.1) 10/10/21 18:30 Nucleated RBC % (auto) 0 % 10/10/21 18:30 Nucleated RBCs # 0.0 /100WBC 10/10/21 18:30 D-Dimer 4.63 ug/mIFEU (0-0.59) H 10/10/21 18:30 Sodium 138 mmol/L (136-145) 10/10/21 18:30 Potassium 3.5 mmol/L (3.5-5.1) 10/10/21 18:30 Chloride 104 mmol/L (98-107) 10/10/21 18:30 Carbon Dioxide 24 mmol/L (22-29) 10/10/21 18:30 Anion Gap 13.5 (5-19) 10/10/21 18:30 BUN 9 mg/dL (8-23) 10/10/21 18:30 Creatinine 0.7 mg/dL (0.5-0.9) 10/10/21 18:30 GFR Calculation 83.2 mL/min (90-130) L 10/10/21 18:30 Glucose 179 mg/dL (65-115) H 10/10/21 18:30 Calculated Osmolality 289 mOsm/kg (285-295) 10/10/21 18:30 Lactate 1.9 mmol/L (0.5-2.2) 10/10/21 19:45 Calcium 9.1 mg/dL (8.5-10.5) 10/10/21 18:30 Total Bilirubin 0.7 mg/dL (0.15-1.2) 10/10/21 18:30 AST 26 U/L (0-32) 10/10/21 18:30 ALT 21 U/L (0-33) 10/10/21 18:30 Alkaline Phosphatase 61 IU/L (35-105) 10/10/21 18:30 Total Protein 6.1 g/dL (6.6-8.7) L 10/10/21 18:30 Albumin 3.8 g/dL (3.5-5.2) 10/10/21 18:30 Globulin 2.3 g/dL (1.3-4.6) 10/10/21 18:30 Lipase 17 U/L (13-60) 10/10/21 18:30 TSH 1.01 uIU/mL (0.27-4.20) 10/10/21 18:30 Urine Color Yellow (Yellow) 10/10/21 20:33 Urine Appearance Clear (CLEAR) 10/10/21 20:33 Urine pH 7 (5-7) 10/10/21 20:33 Ur Specific [place] 1.010 (1.005-1.030) 10/10/21 20: Urine Protein Neg (Negative) 10/10/21 20: Urine Glucose (UA) Norm (Normal) 10/10/21 20: Urine Ketones Negative (Negative) 10/10/21 20: Urine Blood Neg (Negative) 10/10/21 20:33 Urine Nitrate Negative (Negative) 10/10/21 20:33 Urine Bilirubin Neg (Negative) 10/10/21 20:33 Urine Urobilinogen Norm mg/dL (Negative) 10/10/21 20:33 Ur Leukocyte Esterase Negative (Negative) 10/10/21 20:33 Discharge Plan Discharge Patient Disposition: Home Clinical Impression: Acute exacerbation of chronic obstructive airways disease Condition: Stable Prescriptions: New doxycycline hyclate 100 mg capsule 100 mg PO BID 10 Days Qty: 20 0RF prednisone 20 mg tablet 40 mg PO DAILY 5 Days Qty: 10 0RF albuterol sulfate 90 mcg/actuation HFA aerosol inhaler 2 inh inhalation Q4H Qty: 8.5 0RF No Action garlic PO 0RF magnesium PO 0RF Lactobacillus acidophilus PO DAILY 0RF coq10 capsule as directed 0RF Rx Instructions: daily Stiolto Respimat 2.5-2.5 mcg/actuation mist 2 puff inhalation Q24H Qty: 4 4RF acyclovir 200 mg capsule 200 mg PO DAILY Qty: 30 5RF albuterol sulfate [Ventolin HFA] 90 mcg/actuation HFA aerosol inhaler 2 puff INHALATION QID PRN (Reason: shortness of breath or wheezing) Qty: 6.7 5RF Pulmicort Flexhaler 180 mcg/actuation aerosol powdr breath activated 1 inh INHALATION BID Qty: 1 5RF doxepin 100 mg capsule 100 mg PO .at bedtime Qty: 30 5RF red yeast rice 600 mg Capsule 600 mg PO DAILY 0RF Rx Instructions: give with meal/snack omega-3 fatty acids Capsule 1,000 mg PO DAILY 0RF Paxil 20 mg tablet 20 mg PO DAILY 0RF ibuprofen 800 mg tablet 800 mg PO TID PRN (Reason: pain) Qty: 60 0RF hydrocodone-acetaminophen 5-325 mg tablet 1 tab PO Q4H PRN (Reason: pain) Qty: 15 0RF Iron (ferrous sulfate) 325 mg (65 mg iron) tablet 325 mg PO BID Qty: 60 0RF Colace 100 mg capsule 100 mg PO BID Qty: 60 0RF acetaminophen 325 mg capsule 325 mg PO Q4H PRN (Reason: fever or pain) Qty: 60 0RF Discharge Orders: Discharge ED (Routine); Ordered 10/10/21 Ordered By: Clifton Kellogg Referrals: Darrell Kay, [facility]OR[facility] ARRANGER-C [Primary Care Provider] - Discharge Diet: Usual diet Discharge Activity: Limit activity as instructed Patient Instructions: COPD (Chronic Obstructive Pulmonary Disease) (ED) Activity Restrictions/Additional Instructions: Thank you for visiting the emergency department. You were seen and evaluated for shortness of breath. This is likely secondary to your underlying COPD. You will be given a prescription for antibiotics. Additionally for the next 24 hours please use your albuterol inhaler 2 puffs every 4 hours Then for the next 24 hours use 2 puffs every 6 hours Then for the next 24 hours use 2 puffs every 8 hours and resume normal schedule after that. As discussed there is a risk and benefit relationship regarding steroids and a recent postoperative state regarding wound healing. If symptoms or not improved with the albuterol and antibiotics in 2 days please start taking the steroids. Return to the emergency department for worsening symptoms or anything else that you are concerned about and feel needs emergency department evaluation. Please follow all postoperative instructions given by your operating surgeon. Coding Level of Care Code ED Plant Protection Guard for Shania Perez
[2021-10-10] MEDS: ipratropium-albuterol 3 mL Neb INHALATION (18:28)
[2021-10-10 18:44] LABS: Basophils % 0.4 %; Eosinophils # 0.3 10^3/uL (0.0-0.8); Eosinophils % 3.2 %; Hematocrit 27.3 % (37.0-47.0); Hemoglobin 9.2 g/dL (11.5-15.3); Lymphocytes # 1.4 10^3/uL (0.8-4.8); Lymphocytes % 17.1 %; Mean Corpuscular HGB Conc 33.7 g/dL (30.0-36.0); Mean Corpuscular Hemoglobin 32.4 pg (28.0-34.0); Mean Corpuscular Volume 96.1 fl (81-99); Mean Platelet Volume 10.8 fL (7.4-10.4); Monocytes # 0.7 10^3/uL (0.2-0.9); Monocytes % 9.2 %; Neutrophils # 5.53 10^3/uL (1.8-7.7); Neutrophils % 69.8 %; Nucleated Red Blood Cells % 0 %; Platelet Count 324 10^3/cmm (130-400); Red Blood Count 2.84 10^6/uL (4.1-5.3); Red Cell Distribution Width 13.5 % (12.1-15.1); White Blood Count 7.9 10^3/uL (4.0-10.0)
[2021-10-10 19:08] LABS: Alanine Aminotransferase 21 U/L (0-33); Albumin Level 3.8 g/dL (3.5-5.2); Alkaline Phosphatase 61 IU/L (35-105); Anion Gap 13.5 (5-19); Aspartate Amino Transferase 26 U/L (0-32); Blood Urea Nitrogen 9 mg/dL (8-23); Calcium 9.1 mg/dL (8.5-10.5); Carbon Dioxide 24 mmol/L (22-29); Chloride 104 mmol/L (98-107); Globulin 2.3 g/dL (1.3-4.6); Glomerular Filtration Rate 83.2 mL/min (90-130); Glucose 179 mg/dL (65-115); Lipase 17 U/L (13-60); Osmolality Calculated 289 mOsm/kg (285-295); Potassium 3.5 mmol/L (3.5-5.1); Sodium 138 mmol/L (136-145); Thyroid Stimulating Hormone 1.01 uIU/mL (0.27-4.20); Total Bilirubin 0.7 mg/dL (0.15-1.2); Total Protein 6.1 g/dL (6.6-8.7)
[2021-10-10 19:09] LABS: D Dimer 4.63 ug/mIFEU (0-0.59)
--- NOTE | 2021-10-10 19:40 | CTR_ITS ---
PROCEDURE INFORMATION: Exam: CTA Chest With Contrast Exam date and time: 10/10/2021 9:23 PM Age: 70 years old Clinical indication: Shortness of breath; Prior surgery; Surgery date: 3-7 days post-operative; Surgery type: Hysterectomy. ; Patient HX: C/O worsening SOB with fever S/P hysterectomy six days ago. Elevated d dimer of 4. ; Additional info: Post op SOB, fatigue, fever, eval pe/post op complication TECHNIQUE: Imaging protocol: Computed tomographic angiography of the chest with contrast. 3D rendering (Not supervised by radiologist): MIP and/or 3D reconstructed images were created by the technologist. Radiation optimization: All CT scans at this facility use at least one of these dose optimization techniques: automated exposure control; mA and/or kV adjustment per patient size (includes targeted exams where dose is matched to clinical indication); or iterative reconstruction. Contrast material: OMNI 350; Contrast volume: 95 ml; Contrast route: INTRAVENOUS (IV); COMPARISON: CT chest wo [facility] [id number] 03/20/2021 10:53 AM RADIATION DOSE METRICS: Total DLP (mGy-cm): 919.4 FINDINGS: Pulmonary arteries: Normal. No pulmonary emboli. Aorta: No aortic aneurysm. No aortic dissection. Lungs: Bilateral hyperinflation/COPD with moderate diffuse pulmonary emphysema. A thin-walled cyst/pneumatocele is again noted in the anterior right lower lobe, measuring 4.2 x 2.8 cm, unchanged. Pleural spaces: Unremarkable. No pneumothorax. No pleural effusion. Heart: Small anterior pericardial effusion, measuring 11 mm, versus 6 mm previously. Normal heart size with probable minimal coronary calcification. Lymph nodes: Small calcified mediastinal hilar lymph nodes consistent with chronic granulomatous disease. Linear scarring-atelectasis both lung bases. No acute lung consolidation or suspicious round ground-glass opacity. No significant peribronchial thickening. Stable nonspecific borderline sized left axillary lymph node measuring 10 mm short axis. Nonspecific borderline sized mediastinal lymph nodes are also present, the largest measuring up to 11 mm in the AP window region, unchanged. Bones/joints: No acute fracture. Soft tissues: Unremarkable. PROCEDURE INFORMATION: Exam: CT Abdomen And Pelvis With Contrast Exam date and time: 10/10/2021 9:23 PM Age: 70 years old Clinical indication: Shortness of breath; Prior surgery; Surgery date: 3-7 days post-operative; Surgery type: Hysterectomy. ; Patient HX: C/O worsening SOB with fever S/P hysterectomy six days ago. Elevated d dimer of 4. ; Additional info: Post op SOB, fatigue, fever, eval pe/post op complication TECHNIQUE: Imaging protocol: Computed tomography of the abdomen and pelvis with contrast. Radiation optimization: All CT scans at this facility use at least one of these dose optimization techniques: automated exposure control; mA and/or kV adjustment per patient size (includes targeted exams where dose is matched to clinical indication); or iterative reconstruction. Contrast material: OMNI 350; Contrast volume: 95 ml; Contrast route: INTRAVENOUS (IV); COMPARISON: CT chest wo con [id number] 03/20/2021 10:53 AM RADIATION DOSE METRICS: Total DLP (mGy-cm): 919.4 FINDINGS: Liver: Normal size without cirrhosis or suspicious lesion. Gallbladder and bile ducts: Normal. No calcified stones. No ductal dilation. Pancreas: Pancreatic atrophy with fatty replacement. No ductal dilation. Spleen: Normal spleen size without discrete lesion. Calcified splenic granuloma.. Adrenal glands: Normal. No mass. Kidneys and ureters: No obstructing calculus. No hydronephrosis. Stomach and bowel: Colonic diverticulosis. Small to moderate colorectal stool burden. There is a mildly hyperdense mass/collection in the pelvis adjacent to the distal sigmoid/proximal rectum, measuring 5 x 3.3 cm with additional fluid extending along the bilateral pelvic sidewall and bilateral lower quadrant region. The hyperdense appearance suggest blood products. No definite thick enhancing rim is identified to suggest imaging appearance of drainable abscess at this time. No obvious hyperdense focus of contrast extravasation is identified to suggest a rapid source of hemorrhage. There is mild soft tissue stranding in the inferior paracolic gutter/lower quadrant region which may represent edema or mild inflammatory response. No additional loculated fluid collections are identified. Trace amount of perihepatic and perisplenic peritoneal fluid. Appendix: No evidence of appendicitis. Intraperitoneal space: There is pneumoperitoneum in the anterior superior aspect. Additional tiny foci of extraluminal air is noted in the lower abdomen. Vasculature: No abdominal aortic aneurysm. Lymph nodes: No enlarged lymph nodes. Urinary bladder: Unremarkable as visualized. Reproductive: Prior hysterectomy about 6 days ago. Bones/joints: No acute fracture. Soft tissues: There is also diffuse subcutaneous soft tissue haziness/edema in the anterior inferior abdominal wall and suprapubic region. No drainable subcutaneous soft tissue collection or soft tissue gas. CT/CT angio chest w abd pel w con IMPRESSION: 1. Pulmonary emphysema/COPD with stable thin-walled cyst/pneumatocele. No acute lung consolidation or ground-glass opacity. 2. Cardiac findings as above. 3. Stable nonspecific slightly prominent mediastinal and left axillary lymph nodes as described. IMPRESSION: 1. Status post recent hysterectomy by given history. Mildly hyperdense collection in the pelvis, likely hematoma which extends along the pelvic sidewall and into the bilateral lower quadrant/inferior colic gutter region. No definite enhancing rim to suggest imaging signs of drainable abscess however clinical correlation and continued follow-up should be obtained. There is trace peritoneal perihepatic perisplenic fluid. No additional drainable fluid collections are otherwise identified. 2. Pneumoperitoneum which presumably is related to recent postsurgical status at this time however continued follow-up should also be obtained. 3. Colonic diverticulosis without acute diverticulitis or other acute bowel findings. Small to moderate stool burden. 4. Soft tissue findings as above.
[2021-10-10 20:14] LABS: Lactate (Lactic Acid level) 1.9 mmol/L (0.5-2.2)
[2021-10-10 20:40] LABS: Add Urine Microscopic? NO; Charge for UA Resulting for Rev
[2021-10-10 20:45] LABS: Bilirubin Urine Neg (Negative); Blood Urine Neg (Negative); Glucose Urine UA Norm (Normal); Ketones Urine Negative (Negative); Leukocyte Esterase Urine Negative (Negative); Nitrate Urine Negative (Negative); Protein Urine Neg (Negative); Urine Appearance Clear (CLEAR); Urine Color Yellow (Yellow); Urobilinogen Urine Norm (Negative); pH Urine 7 (5-7)
[2021-10-10] MEDS: iohexol 350 mg/mL 100 mL Btl IV (21:25)
[2021-10-12 03:46] LABS: Bacillus cereus group Not Detected (NOT DETECT); Bacillus subtillis group Not Detected (NOT DETECT); Corynebacterium Detected (NOT DETECT); Cutibacterium acnes (P.acnes) Not Detected (NOT DETECT); Enterococcus Not Detected (NOT DETECT); Enterococcus faecalis Not Detected (NOT DETECT); Enterococcus faecium Not Detected (NOT DETECT); Lactobacillus species Not Detected (NOT DETECT); Listeria Not Detected (NOT DETECT); Listeria monocytogenes Not Detected (NOT DETECT); Micrococcus Not Detected (NOT DETECT); Pan Candida Not Detected (NOT DETECT); Pan Gram-Negative Not Detected (NOT DETECT); Staphylococcus epidermidis Not Detected (NOT DETECT); Staphylococcus lugdunensis Not Detected (NOT DETECT); Staphylococcus species Not Detected (NOT DETECT); Streptococcus agalactiae Not Detected (NOT DETECT); Streptococcus anginosus group Not Detected (NOT DETECT); Streptococcus pneumoniae Not Detected (NOT DETECT); Streptococcus pyogenes Not Detected (NOT DETECT); Streptococcus species Not Detected (NOT DETECT)
== END 2021-10-10 22:30 | disposition home or self-care (01) ==
PROVIDERS: Emergency Provider Emergency Medicine; PCP Nurse Practitioner
DX: J44.1 Chronic obstructive pulmonary disease with (acute) exacerbation (principal); Z87.891 Personal history of nicotine dependence; Z98.890 Other specified postprocedural states; Z90.710 Acquired absence of both cervix and uterus; Z79.899 Other long term (current) drug therapy
CPT/HCPCS: 36415; 71045; 71275; 74177; 80053; 81003; 83605; 83690; 84443; 85025; 85378; 87040; 87150; 87205; 94640; 99284; Q9967

== ENCOUNTER 2021-10-26 12:37 | Outpatient (CLI) | payer MEDICARE, MEDICAID, SELFPAY ==
--- NOTE | 2021-10-26 13:00 | MM_ITS ---
WS: [email or web address] BILATERAL 3D TOMOSYNTHESIS DIGITAL SCREENING MAMMOGRAPHY WITH CAD CLINICAL INFORMATION: SCREENING HISTORY: Screening mammogram. COMPARISON: December 16, 2019 TECHNIQUE: Bilateral CC and MLO views. FINDINGS: The breasts are composed of heterogeneous fibroglandular density tissue, which can limit the detectio n of small underlying mass lesions. Punctate and lucent centered calcifications. No suspicious mass, asymmetry, calcifications, or architectural distortion. No evidence of malignancy. MM/[place] [id number] IMPRESSION: BI-RADS: 2-Benign FOLLOW UP: 1 Year Follow-up Recommend return to annual screening mammography. ULTRASOUND OF THE LEFT AXILLA COULD BE OBTAINED TO EVALUATE THE LEFT AXILLARY L YMPH NODES SEEN ON THE RECENT CTA CHEST OCTOBER 10, 2021
== END 2021-10-26 12:38 | disposition home or self-care (01) ==
PROVIDERS: PCP Nurse Practitioner; Visit Provider Nurse Practitioner
DX: Z12.31 Encounter for screening mammogram for malignant neoplasm of breast (principal)
CPT/HCPCS: 77063; 77067

== ENCOUNTER 2022-02-07 07:32 | Outpatient (CLI) | payer MEDICARE, MEDICAID, SELFPAY ==
--- NOTE | 2022-02-07 08:00 | US_ITS ---
WS: [email or web address] ULTRASOUND SOFT TISSUES LEFT axilla. HISTORY: R59.9 - Enlarged lymph nodes, unspecified COMPARISON: None available. TECHNIQUE: 2-D and color Doppler imaging is submitted. Ultrasound is directed to the LEFT axilla. There are numerous lymph nodes in the axilla. All of these lymph nodes are normal in appearance by ultrasound. There is a normal cortex. Normal fatty hilum wit h normal blood flow. Largest lymph node measures 1.2 x 0.8 x 1.6 cm. US/US soft tissue/extremity [id number] IMPRESSION: Normal LEFT axillary lymph nodes.
== END 2022-02-07 07:33 | disposition home or self-care (01) ==
LOC: RAD 07:32
PROVIDERS: PCP Nurse Practitioner; Visit Provider Nurse Practitioner
DX: R59.9 Enlarged lymph nodes, unspecified (principal)
CPT/HCPCS: 76882

== ENCOUNTER → 2022-03-15 15:18 | Outpatient (BNVA) | payer MEDICARE, MEDICAID, SELFPAY | PROVIDERS: PCP Nurse Practitioner; Visit Provider Nurse Practitioner | DX: A60.00 Herpesviral infection of urogenital system, unspecified (principal); J44.9 Chronic obstructive pulmonary disease, unspecified; K59.01 Slow transit constipation; F41.9 Anxiety disorder, unspecified; Z23 Encounter for immunization; E78.2 Mixed hyperlipidemia | CPT/HCPCS: 80053; 80061; 84443 ==

== ENCOUNTER → 2022-11-26 10:34 | Outpatient (BNVA) | payer MEDICARE, MEDICAID, SELFPAY | PROVIDERS: PCP Nurse Practitioner; Visit Provider Nurse Practitioner | DX: E78.2 Mixed hyperlipidemia (principal); E55.9 Vitamin D deficiency, unspecified | CPT/HCPCS: 80053; 80061; 82306; 82607; 84443 ==

== ENCOUNTER 2022-12-07 09:35 | Outpatient (CLI) | payer MEDICARE, MEDICAID, SELFPAY ==
--- NOTE | 2022-12-07 09:51 | MM_ITS ---
WS: [email or web address] VIEWS: MLO and CC views both breasts. 3D digital tomosynthesis is also included in this exam. Comparison made with prior exam of 08/24/2015, 08/29/2016, 09/17/2017, 11/10/2018, 12/16/2019. 10/26/2021.. Findings: There was no sign of mass, architectural distortion or suspicious calcification in either breast. Th e breasts are heterogeneously dense which may obscure small masses MM/[place] [id number] Impression: BI-RADS: 2-Benign finding. FOLLOW-UP: 1 Year Follow-up This mammogram was also analyzed by the Computer Aided Detection System R2 Imag e [employer].
== END 2022-12-07 09:36 | disposition home or self-care (01) ==
LOC: RAD 09:36
PROVIDERS: PCP Nurse Practitioner; Visit Provider Nurse Practitioner
DX: Z12.31 Encounter for screening mammogram for malignant neoplasm of breast (principal)
CPT/HCPCS: 77063; 77067

== ENCOUNTER 2022-12-18 12:23 | Outpatient (CLI) | payer MEDICARE, MEDICAID, SELFPAY ==
--- NOTE | 2022-12-18 12:45 | USCV_ITS ---
Penelope Ramírez Age: 72 Gender: F : 1950 Exam Date: 12/18/2022 12:46 Ordering Phys: Darrell Kay Technologist: CT Exam Location: [facility] Indication: Risk Factors: Previous Vascular Surgery: Right Brachial BP: / Left Brachial BP: / Right Left Velocity (cm/s) Spectral Plaque Velocity (cm/s) Spectral Plaque Syst/Diast Broadening Syst/Diast Broadening 91.70/ 26.60 Prox CCA 102.30/ 31.70 85.80/ 26.60 Mid CCA 96.10 / 21.90 73.00/ 23.70 Distal CCA 69.20 / 23.80 78.90/ 18.70 Prox ICA 74.00 / 18.30 59.70/ 22.20 Mid ICA 73.50 / 27.30 72.90/ 27.10 Distal ICA 85.40 / 28.20 88.70 ECA 86.20 0.86 ICA/CCA 0.84 Antegrade Vertebral Antegrade 30.60/ 7.60 cm/s 43.60/ 16.20 cm/s Tri Subclavian Tri 134.0 188.9 0 0 FINDINGS no stenosis CONCLUSIONS Right ICA stenosis <50%. Moderate atheromatous plaque right carotid bulb/ICA. Left ICA stenosis <50%. Moderate atheromatous plaque left carotid bulb/ICA. Intimal thickening Bilateral CCA's Normal antegrade Doppler flow noted in the right vertebral artery. Normal antegrade Doppler flow noted in the left vertebral artery. Will Dexter MD (Electronically Signed) Final Date: 18 December 2022 15:40 S
--- NOTE | 2022-12-18 14:00 | XR_ITS ---
WS: [email or web address] SCREENING DEXA SCAN mktg CLINICAL INFORMATION: Z78.0 - Asymptomatic menopausal state COMPARISON: None. FINDINGS: The L1-L4 bone mineral density measures 1.274 g/cm2. This corresponds to a T score score of 0.8 and Z score of 3.0. Left forearm bone mineral density measures 0.872. This corresponds to a T score of -0.1 and Z score o f 1.8. XR/XR DEXA axial skeleton* [id number] IMPRESSION: Normal bone mineralization lumbar spine. Normal bone mineralization LEFT forear m
== END 2022-12-18 12:24 | disposition home or self-care (01) ==
LOC: RAD 12:25
PROVIDERS: PCP Nurse Practitioner; Visit Provider Nurse Practitioner
DX: Z13.820 Encounter for screening for osteoporosis (principal); Z78.0 Asymptomatic menopausal state; I65.23 Occlusion and stenosis of bilateral carotid arteries
CPT/HCPCS: 77080; 80053; 80061; 82306; 82607; 84443; 93880

== ENCOUNTER 2023-01-02 10:12 | Outpatient (CLI) | payer MEDICARE, MEDICAID, SELFPAY ==
--- NOTE | 2023-01-02 10:45 | CT_ITS ---
WS: [email or web address] LDCT LUNG CANCER SCREENING TECHNIQUE: Noncontrast CT of the chest with coronal and sagittal reformatted images. CLINICAL INFORMATION: F17.210 - Nicotine dependence, cigarettes, uncomplicated COMPARISON: CTa chest October 10, 2021 DLP: 38.01 mGy.cm DIvol: Mean CTDIvol: 0.50 (mGy) All CT scans at [facility] use at least one of these dose optimization techniques: automat ed exposure control; mA and/or kV adjustment per patient size (includes targeted exams where dose is matched to clinical indication); or iterative reconstruction. FINDINGS: Advanced chronic emphysematous changes. No acute pulmonary infiltrates. No focal pneumonia or pleural fluid. Subsegmental atelectasis in the RIGHT greater than LEFT lung bases. Thin-walled pneumatocele RIGHT upper lobe measuring 4.7 x 2.9 cm appears unchanged. Aortic calcification. Normal caliber thora cic aorta. No mediastinal or hilar lymphadenopathy. Tiny pericardial effusion. Tiny esophageal hiatal hernia. No axillary lymphadenopathy. Mild thoracic kyphosis. Endplate Schmorl's nodes in the mid and lower thoracic spine. CT/CT lung screening [id number] IMPRESSION: LUNG-RADS: 2-Benign Appearance or Behavior FOLLOW UP: 12 Month: Continue annual screening with LDCT
== END 2023-01-02 10:13 | disposition home or self-care (01) ==
PROVIDERS: PCP Nurse Practitioner; Visit Provider Nurse Practitioner
DX: Z12.2 Encounter for screening for malignant neoplasm of respiratory organs (principal); F17.210 Nicotine dependence, cigarettes, uncomplicated
CPT/HCPCS: 71271

== ENCOUNTER → 2023-05-20 11:37 | Outpatient (BNVA) | payer OTHER, MEDICAID, SELFPAY | PROVIDERS: PCP Nurse Practitioner; Visit Provider Nurse Practitioner | DX: A60.00 Herpesviral infection of urogenital system, unspecified (principal); J44.9 Chronic obstructive pulmonary disease, unspecified; K59.01 Slow transit constipation; F41.9 Anxiety disorder, unspecified; I65.29 Occlusion and stenosis of unspecified carotid artery; E78.2 Mixed hyperlipidemia; M79.18 Myalgia, other site | CPT/HCPCS: 80053; 80061 ==

== ENCOUNTER → 2023-08-14 08:20 | Outpatient (BNVA) | payer MEDICARE, MEDICAID, SELFPAY | PROVIDERS: PCP Nurse Practitioner; Visit Provider Dermatology | DX: D48.5 Neoplasm of uncertain behavior of skin (principal) | CPT/HCPCS: 11402; 12032 ==

== ENCOUNTER → 2023-11-11 11:53 | Outpatient (BNVA) | payer MEDICARE, MEDICAID, SELFPAY | PROVIDERS: PCP Nurse Practitioner; Visit Provider Nurse Practitioner | DX: F41.9 Anxiety disorder, unspecified; E78.2 Mixed hyperlipidemia; Z79.899 Other long term (current) drug therapy | CPT/HCPCS: 80053; 80061; 84443; 85025 ==

== ENCOUNTER 2024-01-06 09:28 | Outpatient (CLI) | payer MEDICARE, MEDICAID, SELFPAY ==
--- NOTE | 2024-01-06 10:00 | MM_ITS ---
WS: [email or web address] BILATERAL SCREENING DIGITAL TOMOSYNTHESIS MAMMOGRAM WITH CAD HISTORY: Z12.31 - Encounter for screening mammogram for malignant ... COMPARISON: 12/07/2022, 10/26/2021, 12/16/2019 Bilateral CC and MLO views with tomosynthesis and synthetic mammography submitted. Computer aided det ection analyzed. Breast composition: There are scattered areas of fibroglandular density. No suspicious masses, microc alcifications or architectural distortion. Benign calcification RIGHT breast. MM/[place] [id number] IMPRESSION: BI-RADS: 2-Benign FOLLOW UP: 1 Year Follow-up
--- NOTE | 2024-01-06 10:45 | CT_ITS ---
WS: [email or web address] LDCT LUNG CANCER SCREENING TECHNIQUE: Noncontrast CT of the chest with coronal and sagittal reformatted images. CLINICAL INFORMATION: Z87.891 - Personal history of nicotine dependence COMPARISON: CT 01/02/2023 DLP: 45.51 mGy.cm DIvol: Mean CTDIvol: 0.70 (mGy) All CT scans at [facility] use at least one of these dose optimization techniques: automat ed exposure control; mA and/or kV adjustment per patient size (includes targeted exams where dose is matched to clinical indication); or iterative reconstruction. FINDINGS: New irregular nodule RIGHT lower lobe measuring 6 mm with surrounding fibrosis. Recommend 6 -month follow-up. Advanced chronic emphysematous changes. Stable thin-walled pneumatocele RIGHT upper lobe previously d escribed measuring 4.5 x 3.0 cm. Subsegmental atelectasis in the lung bases. Mild thoracic curve. Mild thoracic kyphosis. Endplate Schmorl's nodes in the midthoracic spine. Aorti c calcification. Coronary calcification. No mediastinal or hilar lymphadenopathy. Adrenal glands are normal. Normal GE junction. Splenic granulomas. Fatty atrophy of the pancreas. Sma ll pericardial effusion. This is similar to previous.. CT/CT lung screening [id number] IMPRESSION: New irregular nodule RIGHT lower lobe measuring 6 mm. Recommend 6-m [facility] follow-up. LUNG-RADS: 3-Probably Benign FOLLOW UP: 6 Month LDCT
== END 2024-01-06 09:29 | disposition home or self-care (01) ==
LOC: RAD 09:29
PROVIDERS: PCP Nurse Practitioner; Visit Provider Nurse Practitioner
DX: Z12.31 Encounter for screening mammogram for malignant neoplasm of breast (principal); Z87.891 Personal history of nicotine dependence; R92.1 Mammographic calcification found on diagnostic imaging of breast; J43.9 Emphysema, unspecified; J98.4 Other disorders of lung; J98.11 Atelectasis; R91.1 Solitary pulmonary nodule; I70.0 Atherosclerosis of aorta; I25.84 Coronary atherosclerosis due to calcified coronary lesion; D73.89 Other diseases of spleen; M51.44 Schmorl's nodes, thoracic region; R92.323 Mammographic fibroglandular density, bilateral breasts
CPT/HCPCS: 71271; 77063; 77067

== ENCOUNTER → 2024-04-27 11:59 | Outpatient (BNVA) | payer MEDICARE, MEDICAID, SELFPAY | PROVIDERS: PCP Nurse Practitioner; Visit Provider Nurse Practitioner | DX: E55.9 Vitamin D deficiency, unspecified (principal); E78.2 Mixed hyperlipidemia | CPT/HCPCS: 80053; 80061; 82306 ==

== ENCOUNTER 2024-07-21 11:31 | Outpatient (CLI) | payer MEDICARE, MEDICAID, SELFPAY ==
--- NOTE | 2024-07-21 12:00 | CT_ITS ---
WS: [email or web address] CT chest wo con [id number] HISTORY: R91.1 - Solitary pulmonary nodule TECHNIQUE: Axial imaging performed through the thorax. Coronal and sagittal reformats are submitted. All CT scans at [place] use at least one of these dose optimization techniques: automated exposure control; mA and/or kV adjustment per patient size (includes targeted exams where dose is matched to clinical indication); or iterative reconstruction. CONTRAST: None DLP: 223.45 mGy.cm COMPARISON: 01/06/2024 Lungs and central airway: Moderate pulmonary hyperexpansion. Reidentified is the linear opacification at the RIGHT lung base which is stable. 6 mm nodule in the medial superior RIGHT lower lobe that was recently described is not identified. No new pulmonary nodule. Stable pneumatocele RIGHT middle lobe. Pleura: Normal. No pleural effusion. Heart and pericardium: Normal size heart with no pericardial effusion. Mediastinum and davida: No mediastinum or hilar adenopathy. Vessels: Mild atherosclerosis. Normal size pulmonary artery. Chest wall and lower neck: No soft tissue masses. Upper abdomen: No adrenal mass. Visualized upper abdomen is unremarkable. There is a small hiatal hernia. Osseous structures: Small endplate Schmorl's nodes. Calcified disc in the lower thoracic spine. CT/CT chest wo con [id number] IMPRESSION: 1. No persistent 6 mm nodule in the RIGHT lower lobe. 2. Stable curvilinear opacification consistent with scar at the RIGHT lung bas e. 3. No mediastinal or hilar adenopathy. 4. Pulmonary hyperexpansion. Recommendation: Return to annual lung screening CT.
== END 2024-07-21 11:32 | disposition home or self-care (01) ==
PROVIDERS: PCP Nurse Practitioner; Visit Provider Nurse Practitioner
DX: R91.8 Other nonspecific abnormal finding of lung field (principal); J98.4 Other disorders of lung; I70.0 Atherosclerosis of aorta; K44.9 Diaphragmatic hernia without obstruction or gangrene; R93.7 Abnormal findings on diagnostic imaging of other parts of musculoskeletal system; M51.84 Other intervertebral disc disorders, thoracic region
CPT/HCPCS: 71250

== ENCOUNTER → 2024-09-08 11:05 | Outpatient (BNVA) | payer MEDICARE, MEDICAID, SELFPAY | PROVIDERS: PCP Nurse Practitioner; Visit Provider Nurse Practitioner | DX: E78.2 Mixed hyperlipidemia (principal) | CPT/HCPCS: 80053; 80061 ==

== ENCOUNTER → 2024-09-28 11:07 | Outpatient (BNVA) | payer MEDICARE, MEDICAID, SELFPAY | PROVIDERS: PCP Nurse Practitioner; Visit Provider Nurse Practitioner Family | DX: L71.0 Perioral dermatitis (principal); L24.9 Irritant contact dermatitis, unspecified cause; D22.5 Melanocytic nevi of trunk; L82.1 Other seborrheic keratosis; F42.4 Excoriation (skin-picking) disorder; Z08 Encounter for follow-up examination after completed treatment for malignant neoplasm; Z85.828 Personal history of other malignant neoplasm of skin; L57.0 Actinic keratosis | CPT/HCPCS: 17000; 99214 ==

== ENCOUNTER → 2024-10-28 11:14 | Outpatient (BNVA) | payer MEDICARE, MEDICAID, SELFPAY | PROVIDERS: PCP Nurse Practitioner; Visit Provider Nurse Practitioner Family | DX: L24.9 Irritant contact dermatitis, unspecified cause (principal); L71.0 Perioral dermatitis; Z08 Encounter for follow-up examination after completed treatment for malignant neoplasm; Z85.828 Personal history of other malignant neoplasm of skin; L82.0 Inflamed seborrheic keratosis; L29.89 Other pruritus; R20.9 Unspecified disturbances of skin sensation; R20.8 Other disturbances of skin sensation | CPT/HCPCS: 17110; 99214 ==

== ENCOUNTER 2025-01-23 09:23 | Inpatient (IN) | payer MEDICARE, MEDICAID, SELFPAY ==
[2025-01-23] VITALS (8 sets, daily range): BP systolic 104–137; BP diastolic 63–71; PULSE 81–95; RESP 15–17; TEMP 37.1–37.9; O2SAT 90–94; BMI 17.9
--- NOTE | 2025-01-23 11:52 | XRR_ITS ---
PROCEDURE INFORMATION: Exam: XR Abdomen Exam date and time: 01/23/2025 12:43 PM Age: 74 years old Clinical indication: Constipation; Prior surgery; Surgery date: 6+ months; Surgery type: Hysterectomy; Additional info: Constipation; Urinary retention; Lower abdominal pain TECHNIQUE: Imaging protocol: Radiologic exam of the abdomen. Views: Frontal supine view of the abdomen. 1 View. COMPARISON: CT chest wo con [id number] 07/21/2024 11:59 AM FINDINGS: Gastrointestinal tract: Bowel-gas pattern is nonspecific. No overly distended small bowel loop. Bones/joints: Degenerative changes at lower lumbar spine. Left hip replacement XR/XR KUB portable [id number] IMPRESSION: Bowel-gas pattern is nonspecific.
[2025-01-23 12:11] LABS: Glucose Urine UA Negative (Normal); Nitrate Urine Negative (Negative); Specific Gravity, Urine 1.007 (1.005-1.030)
[2025-01-23 12:30] LABS: Hematocrit 42.8 % (36-47); Hemoglobin 14.70 g/dL (11.27-16.99); Mean Corpuscular HGB Conc 34.3 g/dL (30-55); Mean Corpuscular Hemoglobin 31.9 pg (27-33); Mean Corpuscular Volume 92.8 fl (85-98); Nucleated Red Blood Cells % 0 %; Platelet Count 241 10^3/cmm (157-399); Red Blood Count 4.61 10^6/uL (3.85-5.65); White Blood Count 13.49 10^3/uL (3.29-11.43)
[2025-01-23 12:33] LABS: Add Urine Microscopic? YES; UA Manual Slide Review YES
[2025-01-23 12:48] LABS: Alanine Aminotransferase 12 U/L (0-33); Albumin Level 3.9 g/dL (3.5-5.2); Alkaline Phosphatase 66 U/L (35-105); Anion Gap 13.8 (5-19); Aspartate Amino Transferase 18 U/L (0-32); Blood Urea Nitrogen 12 mg/dL (8-23); Calcium 9.4 mg/dL (8.5-10.5); Carbon Dioxide 24 mmol/L (22-29); Chloride 103 mmol/L (98-107); Creatinine Clr Calc Pharmacy 53.9820; Globulin 2.5 g/dL (1.3-4.6); Glucose 120 mg/dL (65-115); Lipase 20 U/L (13-60); Osmolality Calculated 285 mOsm/kg (285-295); Potassium 3.8 mmol/L (3.5-5.1); Sodium 137 mmol/L (136-145); Total Protein 6.4 g/dL (6.6-8.7)
--- NOTE | 2025-01-23 13:02 | W.ED.ABDPA2 ---
HPI - Abdominal Pain General: Chief Complaint: Abdominal Pain Stated Complaint: Lower ABD pain hasn't had a BM in a week Time Seen by Provider: 01/23/25 10:21 History of Present Illness: 74-year-old female presents emergency room complaining of lower abdominal pain for the last week difficult to urinate some mild burning with urination no fever sweats chills no dysuria urgency or frequency she also has not been able to have a bowel movement in the last week. No chest pain. Associated Symptoms: Reports constipation and dysuria; Denies chills and fever(s) Related Data Home Medications ?Medication ?Instructions ?Recorded ?Confirmed Lactobacillus acidophilus PO DAILY 11/19/19 12/07/24 [Probiotic Acidophilus] garlic PO 11/19/19 12/07/24 magnesium PO 11/19/19 12/07/24 coq10 as directed 08/14/21 12/07/24 omega-3 fatty acids 1,000 mg PO DAILY 10/02/21 12/07/24 apple cider vinegar 600 mg capsule mg PO 11/14/21 12/07/24 calcium carbonate 500 mg PO DAILY 11/14/21 12/07/24 cholecalciferol (vitamin D3) 10 10 mcg PO DAILY 11/14/21 12/07/24 mcg (400 unit) capsule multivitamin with minerals 1 tab PO DAILY 11/14/21 12/07/24 (Hair,Skin and Nails tablet) Previous Rx's ?Medication ?Instructions ?Recorded nebulizers #1 ea 11/11/23 nystatin 100,000 unit/mL oral 5 ml PO TID #200 mL 12/04/23 suspension acyclovir 200 mg capsule 200 mg PO DAILY #90 caps 12/07/24 albuterol sulfate 90 mcg/actuation 2 puff inhalation QID PRN 12/07/24 aerosol inhaler (Ventolin HFA) shortness of breath or wheezing #6.7 grams budesonide 0.5 mg/2 mL suspension 0.5 mg (2 mL) inhalation BID #120 12/07/24 for nebulization (Pulmicort) mL docusate sodium 100 mg capsule 100 mg PO DAILY #90 caps 12/07/24 (Colace) doxepin 100 mg capsule 100 mg PO .at bedtime #90 caps 12/07/24 estradiol 0.01% (0.1 mg/gram) 1 g vaginal .one time week vaginal 12/07/24 vaginal cream dryness #42.5 grams paroxetine HCl 20 mg tablet (Paxil) 20 mg PO DAILY #90 tabs 12/07/24 revefenacin 175 mcg/3 mL solution 175 mcg (3 mL) inhalation DAILY 12/07/24 for nebulization (Yupelri) #90 mL Allergies Allergy/AdvReac Type Severity Reaction Status Date / Time atorvastatin (From Lipitor) AdvReac Myalgia Verified 12/07/24 10:20 Review of Systems Const: Denies: fever(s) or chills Card: Denies: chest pain Resp: Denies: dyspnea GI: Reports: abdominal pain and constipation : Reports: dysuria; Denies: flank pain, urinary frequency or urinary urgency Musc: Denies: neck pain or back pain Skin/Breast: Denies: rash PFSH ED PFSH: Medical History Cigarette smoker History of malignant melanoma COPD, moderate Anxiety Carotid artery stenosis Herpes, genital Mixed hyperlipidemia Surgical History History of cataract surgery both eyes History of hysterectomy History of removal of cyst Right buttock August, [facility] D[facility] History of hip surgery Left 2022 [place], [place] Dr. Kathleen History of tubal ligation Family History Mother Diabetes Sister Diabetes Hypertension Stroke Heart disease Breast cancer 70's Family/Other Diabetes maternal uncle Denies family history of Colon cancer Ovarian cancer Clotting disorder Hyperlipidemia Anesthesia complication Bleeding disorder Uterine cancer Thyroid disease Social History Smoking and tobacco/nicotine status: former use of tobacco/nicotine Second hand smoke exposure: No Alcohol intake: unknown Substance/Drug Use: unknown Adopted: No Caregiver/support person: No Lives independently: Yes Household members: spouse Housing: House Marital status: service: No Current occupational status: unemployed and retired Do you think of yourself as: Straight/Heterosexual Current gender identity: Female Physical Exam Const: GENERAL APPEARANCE: cooperative ORIENTATION/CONSCIOUSNESS: Yes awake, Yes oriented to person, Yes oriented to place and Yes oriented to time HENMT: COMMON NORMALS: normocephalic, atraumatic and hearing grossly normal bilaterally HEAD & SCALP: normocephalic and atraumatic Resp: COMMON NORMALS: normal respiratory effort, No retractions, No use of accessory muscles and clear to auscultation bilaterally AUSCULTATION: clear to auscultation bilaterally Cardio: COMMON NORMALS: regular rate, regular rhythm and No murmurs present (Cardio) RATE: regular rate RHYTHM: regular rhythm GI: COMMON NORMALS: Soft to palpation and No hepatosplenomegaly present AUSCULTATION: Yes normoactive bowel sounds PALPATION: Yes Soft to palpation, No Tenderness to palpation present (GI), No Guarding due to palpation present (GI) and Yes No hepatosplenomegaly present Extremity: COMMON NORMALS: normal to inspection, capillary refill normal, no clubbing, cyanosis or edema, no calf tenderness and no pedal edema Neuro: SENSORIUM/ORIENTATION: Yes oriented to person, Yes oriented to place and Yes oriented to time Skin: COMMON NORMALS: no rashes or lesions noted GENERAL SKIN EXAM: no rashes or lesions noted Course Vital Signs: Vital signs: Vital Signs Temperature 98.7 F 01/23/25 09:38 Pulse Rate 88 01/23/25 15:07 Respiratory Rate 17 01/23/25 09:38 Blood Pressure 127/71 01/23/25 15:07 Pulse Oximetry 90 01/23/25 15:07 Oxygen Delivery Me thod Room Air 01/23/25 15:07 MDM - Abdominal Pain Medical Decision Making CT shows severe diverticulitis with pneumatosis. Lactate not elevated. Patient given IV fluids cultures done and started on Zosyn. Admit to the hospitalist consult surgery Medical Records I reviewed the patient's medical records. Lab Data I reviewed the patient's lab results. 01/23/25 12:24 01/23/25 12:24 Labs/Radiology: Radiology Impressions KUB X-Ray 01/23/25 11:52 IMPRESSION: Bowel-gas pattern is nonspecific. Abdomen/Pelvis CT 01/23/25 13:45 IMPRESSION: 1. Findings suggest acute diverticulitis involving the sigmoid colon. There is a colonic stool column transitional point at the distal sigmoid colon. Pneumatosis intestinalis is seen in the sigmoid colon. The diverticulitis complicated by colonic obstruction and bowel ischemia can not be excluded. Surgical consultation is advised. No abscess. 2. Mild calcified atherosclerotic changes are seen throughout the abdominal aorta. 3. Severe lumbar spine degenerative changes. ADDENDUM: 01/23/25 [id number] COMMENT: THIS REPORT CONTAINS FINDINGS THAT MAY BE CRITICAL TO PATIENT CARE. The exam findings were verbally communicated by me to WILBERTO IVERSON via telephone conference at 3:03 PM CDT on 01/23/2025. The findings were acknowledged and understood. Laboratory Results WBC 13.49 10^3/uL (3.29-11.43) H 01/23/25 12:24 Corrected WBC Cancelled 01/23/25 11:55 RBC 4.61 10^6/uL (3.85-5.65) 01/23/25 12:24 Hgb 14.70 g/dL (11.27-16.99) 01/23/25 12:24 Hct 42.8 % (36-47) 01/23/25 12:24 MCV 92.8 fl (85-98) 01/23/25 12:24 MCH 31.9 pg (27-33) 01/23/25 12:24 MCHC 34.3 g/dL (30-55) 01/23/25 12:24 RDW 13.8 % (12.1-15.1) 01/23/25 12:24 Plt Count 241 10^3/cmm (157-399) 01/23/25 12:24 MPV 10.3 fL (7.4-10.4) 01/23/25 12:24 Gran % Cancelled 01/23/25 11:55 Neut % (Auto) 82.3 % 01/23/25 12:24 Lymph % (Auto) 8.0 % 01/23/25 12:24 [place] % (Auto) 8.7 % 01/23/25 12:24 Eos % (Auto) 0.4 % 01/23/25 12:24 Baso % (Auto) 0.3 % 01/23/25 12:24 Neut # (Auto) 11.10 10^3/uL (1.8-7.7) H 01/23/25 12:24 Lymph # (Auto) 1.1 10^3/uL (0.8-4.8) 01/23/25 12:24 [place] # (Auto) 1.2 10^3/uL (0.2-0.9) H 01/23/25 12:24 Eos # (Auto) 0.1 10^3/uL (0.0-0.8) 01/23/25 12:24 Baso # (Auto) 0.0 10^3/uL (0.0-0.1) 01/23/25 12:24 Absolute Gran (auto) Cancelled 01/23/25 11:55 Nucleated RBC % (auto) 0 % 01/23/25 12:24 Nucleated RBCs # 0.0 /100WBC 01/23/25 12:24 Sodium 137 mmol/L (136-145) 01/23/25 12:24 Potassium 3.8 mmol/L (3.5-5.1) 01/23/25 12:24 Chloride 103 mmol/L (98-107) 01/23/25 12:24 Carbon Dioxide 24 mmol/L (22-29) 01/23/25 12:24 Anion Gap 13.8 (5-19) 01/23/25 12:24 BUN 12 mg/dL (8-23) 01/23/25 12:24 Creatinine 0.7 mg/dL (0.5-0.9) 01/23/25 12:24 GFR Calculation Not Reportable 01/23/25 12:24 Glucose 120 mg/dL (65-115) H 01/23/25 12:24 Calculated Osmolality 285 mOsm/kg (285-295) 01/23/25 12:24 Lactic Acid 1.2 mmol/L (0.5-2.2) 01/23/25 12:24 Calcium 9.4 mg/dL (8.5-10.5) 01/23/25 12:24 Total Bilirubin 0.4 mg/dL (0.15-1.2) 01/23/25 12:24 AST 18 U/L (0-32) 01/23/25 12:24 ALT 12 U/L (0-33) 01/23/25 12:24 Alkaline Phosphatase 66 U/L (35-105) 01/23/25 12:24 Total Protein 6.4 g/dL (6.6-8.7) L 01/23/25 12:24 Albumin 3.9 g/dL (3.5-5.2) 01/23/25 12:24 Globulin 2.5 g/dL (1.3-4.6) 01/23/25 12:24 Lipase 20 U/L (13-60) 01/23/25 12:24 Urine Color Yellow (Yellow) 01/23/25 10:42 Urine Appearance Clear (CLEAR) 01/23/25 10:42 Urine pH 7.5 (5-7) 01/23/25 10:42 Ur Specific [place] 1.007 (1.005-1.030) 01/23/25 10:42 Urine Protein Negative (Negative) 01/23/25 10:42 Urine Glucose (UA) Negative (Normal) 01/23/25 10:42 Urine Ketones Negative (Negative) 01/23/25 10:42 Urine Blood Negative (Negative) 01/23/25 10:42 Urine Nitrate Negative (Negative) 01/23/25 10:42 Urine Bilirubin Negative (Negative) 01/23/25 10:42 Urine Urobilinogen 0.2 mg/dL (Negative) 01/23/25 10:42 Ur Leukocyte Esterase Trace (Negative) A 01/23/25 10:42 Urine RBC 0-4 /hpf (0-2) H 01/23/25 10:42 Urine WBC 0-4 /hpf (0-5) H 01/23/25 10:42 Ur Squamous Epith Cells 0-4 /hpf (0-5) H 01/23/25 10:42 Amorphous Sediment Not Reportable 01/23/25 10:42 Urine Bacteria Trace /hpf (NONE) 01/23/25 10:42 All radiology interpretation(s) finalized by discharge Discharge Plan Discharge Patient Disposition: Admitted As Inpatient Clinical Impression: Sigmoid diverticulosis Condition: Stable Coding Level of Care Code ED [employer]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
--- NOTE | 2025-01-23 13:45 | CTR_ITS ---
PROCEDURE INFORMATION: Exam: CT Abdomen And Pelvis With Contrast Exam date and time: 01/23/2025 2:29 PM Age: 74 years old Clinical indication: Abdominal pain; Colic; Prior surgery; Surgery date: 6+ months; Surgery type: L hip; No bm in 1 week; Additional info: Abd pain TECHNIQUE: Imaging protocol: Computed tomography of the abdomen and pelvis with contrast. Radiation optimization: All CT scans at this facility use at least one of these dose optimization techniques: automated exposure control; mA and/or kV adjustment per patient size (includes targeted exams where dose is matched to clinical indication); or iterative reconstruction. Contrast material: OMNIPAQUE 350; Contrast volume: 80 ml; Contrast route: INTRAVENOUS (IV); COMPARISON: CR (ABDOMEN, ) 01/23/2025 12:43 PM RADIATION DOSE METRICS: Total DLP (mGy-cm): 340.07 FINDINGS: Liver: Normal. No mass. Gallbladder and biliary ducts: Normal. No calcified stones. No ductal dilation. Pancreas: Normal. No ductal dilation. Spleen: Normal. No splenomegaly. Adrenal glands: Normal. No mass. Kidneys and ureters: Normal. No hydronephrosis. Stomach and bowel: Colonic wall thickening with pericolonic inflammatory changes involving the sigmoid colon. Diverticulosis noted in this area. Diffuse colonic stool material. There is pneumatosis intestinalis involving the sigmoid colon. There appears to be a stool column with transitional point at the distal sigmoid colon (4/63). No small bowel loop dilatation. Appendix: Appendix is normal. Intraperitoneal space: Unremarkable. No free air. No significant fluid collection. Vasculature: Mild calcified atherosclerotic changes are seen throughout the abdominal aorta. Inferior mesenteric artery is patent . Lymph nodes: Unremarkable. No enlarged lymph nodes. Urinary bladder: Unremarkable as visualized. Reproductive: Post hysterectomy changes are seen. Bones/joints: left total hip replacement mandible. Severe lumbar spine degenerative changes. Soft tissues: Unremarkable. CT/CT abdomen pelvis w con* [id number] IMPRESSION: 1. Findings suggest acute diverticulitis involving the sigmoid colon. There is a colonic stool column transitional point at the distal sigmoid colon. Pneumatosis intestinalis is seen in the sigmoid colon. The diverticulitis complicated by colonic obstruction and bowel ischemia can not be excluded. Surgical consultation is advised. No abscess. 2. Mild calcified atherosclerotic changes are seen throughout the abdominal aorta. 3. Severe lumbar spine degenerative changes.
[2025-01-23] MEDS: iohexol 350 mg/mL 500 mL Btl (per mL) IV (14:33)
[2025-01-23 15:32] LABS: Lactic Sepsis W/Reflex 1.2 mmol/L (0.5-2.2)
--- NOTE | 2025-01-23 15:49 | PM.HP ---
Providers/Chief Complaint Primary Care Provider: SHAYLA HaasC Chief Complaint: Lower ABD pain hasn't had a BM in a week History of Present Illness Penelope Ramírez is a 74 year old female with a past medical history of COPD, hyperlipidemia, prior history of smoking, genital herpes, anxiety, who presents to [facility] for abdominal pain. Patient reports that her last bowel movement was about a week ago, she is passing gas, she has had nausea, no vomiting, no lightheadedness, dizziness, she had diffuse abdominal pain, she has a history of constipation she takes bowel regimen daily, does report a prior history of diverticulitis, she has had a hysterectomy, bilateral oopherectomy Review of Systems Card: Denies: chest pain Resp: Denies: dyspnea GI: Reports: abdominal pain, nausea and constipation Medications/Allergies Home Medications ?Medication ?Instructions ?Recorded ?Confirmed ?Last Taken ?Type Lactobacillus acidophilus PO DAILY 11/19/19 12/07/24 10/04/21 History [Probiotic Acidophilus] garlic PO 11/19/19 12/07/24 09/28/21 History magnesium PO 11/19/19 12/07/24 10/02/21 History coq10 as directed 08/14/21 12/07/24 10/04/21 History omega-3 fatty acids 1,000 mg PO DAILY 10/02/21 12/07/24 Unknown History apple cider vinegar 600 mg capsule mg PO 11/14/21 12/07/24 Unknown History calcium carbonate 500 mg PO DAILY 11/14/21 12/07/24 Unknown History cholecalciferol (vitamin D3) 10 10 mcg PO DAILY 11/14/21 12/07/24 Unknown History mcg (400 unit) capsule multivitamin with minerals 1 tab PO DAILY 11/14/21 12/07/24 Unknown History (Hair,Skin and Nails tablet) nebulizers #1 ea 11/11/23 12/07/24 Unknown Rx nystatin 100,000 unit/mL oral 5 ml PO TID #200 mL 12/04/23 12/07/24 Unknown Rx suspension acyclovir 200 mg capsule 200 mg PO DAILY #90 caps 12/07/24 12/07/24 Unknown Rx albuterol sulfate 90 mcg/actuation 2 puff inhalation QID PRN 12/07/24 12/07/24 Unknown Rx aerosol inhaler (Ventolin HFA) shortness of breath or wheezing #6.7 grams budesonide 0.5 mg/2 mL suspension 0.5 mg (2 mL) inhalation BID #120 12/07/24 12/07/24 Unknown Rx for nebulization (Pulmicort) mL docusate sodium 100 mg capsule 100 mg PO DAILY #90 caps 12/07/24 12/07/24 Unknown Rx (Colace) doxepin 100 mg capsule 100 mg PO .at bedtime #90 caps 12/07/24 12/07/24 Unknown Rx estradiol 0.01% (0.1 mg/gram) 1 g vaginal .one time week vaginal 12/07/24 12/07/24 Unknown Rx vaginal cream dryness #42.5 grams paroxetine HCl 20 mg tablet (Paxil) 20 mg PO DAILY #90 tabs 12/07/24 12/07/24 Unknown Rx revefenacin 175 mcg/3 mL solution 175 mcg (3 mL) inhalation DAILY 12/07/24 12/07/24 Unknown Rx for nebulization (Yupelri) #90 mL Allergies Allergy/AdvReac Type Severity Reaction Status Date / Time atorvastatin (From Lipitor) AdvReac Myalgia Verified 12/07/24 10:20 PFSH Acute PFSH: Medical History Cigarette smoker History of malignant melanoma COPD, moderate Anxiety Carotid artery stenosis Herpes, genital Mixed hyperlipidemia Surgical History History of cataract surgery both eyes History of hysterectomy History of removal of cyst Right buttock August, [facility] D[facility]at[facility] History of hip surgery Left 2022 [place], [place] Dr. Kathleen History of tubal ligation Family History Mother Diabetes Sister Diabetes Hypertension Stroke Heart disease Breast cancer 70's Family/Other Diabetes maternal uncle Denies family history of Colon cancer Ovarian cancer Clotting disorder Hyperlipidemia Anesthesia complication Bleeding disorder Uterine cancer Thyroid disease Social History Smoking and tobacco/nicotine status: former use of tobacco/nicotine Second hand smoke exposure: No Alcohol intake: unknown Substance/Drug Use: unknown Adopted: No Caregiver/support person: No Lives independently: Yes Household members: spouse Housing: House Marital status: service: No Current occupational status: unemployed and retired Do you think of yourself as: Straight/Heterosexual Current gender identity: Female Vitals/I&O/Wt Last Vital Signs Temp 98.7 F 01/23/25 09:38 Pulse 88 01/23/25 15:07 Resp 17 01/23/25 09:38 BP 127/71 01/23/25 15:07 Pulse Ox 90 01/23/25 15:07 O2 Del Method Room Air 01/23/25 15:07 Weight last 48 hrs Weight 48.988 kg Physical Exam Const: COMMON NORMALS: no acute distress and patient oriented x3 HENMT: COMMON NORMALS: normocephalic HEAD & SCALP: normocephalic Eye: COMMON NORMALS: Equal, round and reactive pupils present and EOMs intact bilaterally Resp: COMMON NORMALS: normal respiratory effort, No retractions, No use of accessory muscles and clear to auscultation bilaterally AUSCULTATION: clear to auscultation bilaterally Cardio: COMMON NORMALS: regular rate, regular rhythm, S1 normal heart sound present and S2 normal heart sound present RATE: regular rate RHYTHM: regular rhythm HEART SOUNDS: S1 normal heart sound present and S2 normal heart sound present GI: COMMON NORMALS: Soft to palpation AUSCULTATION: Yes Hypoactive bowel sounds present PALPATION: Yes Tenderness to palpation present (GI) (Diffuse tenderness), No Guarding due to palpation present (GI) and No Rigid due to palpation OTHER: No guarding, no rebound, negative rigidity Extremity: COMMON NORMALS: no calf tenderness and no pedal edema Neuro: COMMON NORMALS: patient oriented x3, CN's II-XII intact bilaterally and moves all extremities Psych: COMMON NORMALS: mental status grossly normal Data 01/23/25 12:24 01/23/25 12:24 A&P Assessment and plan 1. Acute diverticulitis: Plan: Acute diverticulitis -Colonic obstruction? -Bowel ischemia?, Lactic acid 1.2 CT/CT abdomen pelvis w con* [id number] IMPRESSION: 1. Findings suggest acute diverticulitis involving the sigmoid colon. There is a colonic stool column transitional point at the distal sigmoid colon. Pneumatosis intestinalis is seen in the sigmoid colon. The diverticulitis complicated by colonic obstruction and bowel ischemia can not be excluded. Surgical consultation is advised. No abscess. 2. Mild calcified atherosclerotic changes are seen throughout the abdominal aorta. 3. Severe lumbar spine degenerative changes. -Plan - Serial abdominal exams - IV Zosyn - IV morphine -continue Zosyn - Full code -Lovenox COPD, -DuoNeb -Monitor respiratory status closely PDMP PDMP Reviewed: Not Reviewed Attestations Medical Necessity Statement*: Patient requires hospitalization, for acute diverticulitis, inpatient, greater than 2 midnights Diagnoses Acute diverticulitis K57.92
--- NOTE | 2025-01-23 15:53 | PM.CONSULT ---
Providers/Reason For Consult Consulting Physician/Specialty*: Rodney Alejandro DO Reason for Consult*: Diverticulitis Primary Care Provider: NEVA Haas History of Present Illness History of Present Illness Penelope Ramírez is a 74 year old female abdominal pain and diverticulitis. She started having pain several days ago and presented today because her pain has gotten worse and she has been having some nausea but denies any emesis. She denies any fevers or chills. She states that she has had multiple colonoscopies that showed diverticulosis but no previous episodes of diverticulitis. On CT scan there was some concern of pneumatosis in the wall of the large intestine but on initial inspection she is resting comfortably in bed with no issues. She denies any urinary complaints. She states that she normally takes stool softeners daily to help her with her bowel movements and if she does not she will go 2 to 3 days without having a bowel movement. Currently has been about 7 days since her last bowel movement she is passing some small amount of flatus but this is decreased over this time as well. She denies any blood in her stool. No other complaints this time. Review of Systems Card: Denies: chest pain Resp: Denies: dyspnea GI: Reports: abdominal pain, nausea and constipation Medications/Allergies Home Medications ?Medication ?Instructions ?Recorded ?Confirmed ?Last Taken ?Type Lactobacillus acidophilus PO DAILY 11/19/19 12/07/24 10/04/21 History [Probiotic Acidophilus] garlic PO 11/19/19 12/07/24 09/28/21 History magnesium PO 11/19/19 12/07/24 10/02/21 History coq10 as directed 08/14/21 12/07/24 10/04/21 History omega-3 fatty acids 1,000 mg PO DAILY 10/02/21 12/07/24 Unknown History apple cider vinegar 600 mg capsule mg PO 11/14/21 12/07/24 Unknown History calcium carbonate 500 mg PO DAILY 11/14/21 12/07/24 Unknown History cholecalciferol (vitamin D3) 10 10 mcg PO DAILY 11/14/21 12/07/24 Unknown History mcg (400 unit) capsule multivitamin with minerals 1 tab PO DAILY 11/14/21 12/07/24 Unknown History (Hair,Skin and Nails tablet) nebulizers #1 ea 11/11/23 12/07/24 Unknown Rx nystatin 100,000 unit/mL oral 5 ml PO TID #200 mL 12/04/23 12/07/24 Unknown Rx suspension acyclovir 200 mg capsule 200 mg PO DAILY #90 caps 12/07/24 12/07/24 Unknown Rx albuterol sulfate 90 mcg/actuation 2 puff inhalation QID PRN 12/07/24 12/07/24 Unknown Rx aerosol inhaler (Ventolin HFA) shortness of breath or wheezing #6.7 grams budesonide 0.5 mg/2 mL suspension 0.5 mg (2 mL) inhalation BID #120 12/07/24 12/07/24 Unknown Rx for nebulization (Pulmicort) mL docusate sodium 100 mg capsule 100 mg PO DAILY #90 caps 12/07/24 12/07/24 Unknown Rx (Colace) doxepin 100 mg capsule 100 mg PO .at bedtime #90 caps 12/07/24 12/07/24 Unknown Rx estradiol 0.01% (0.1 mg/gram) 1 g vaginal .one time week vaginal 12/07/24 12/07/24 Unknown Rx vaginal cream dryness #42.5 grams paroxetine HCl 20 mg tablet (Paxil) 20 mg PO DAILY #90 tabs 12/07/24 12/07/24 Unknown Rx revefenacin 175 mcg/3 mL solution 175 mcg (3 mL) inhalation DAILY 12/07/24 12/07/24 Unknown Rx for nebulization (Yupelri) #90 mL Allergies Allergy/AdvReac Type Severity Reaction Status Date / Time atorvastatin (From Lipitor) AdvReac Myalgia Verified 12/07/24 10:20 PFSH Acute PFSH: Medical History (Updated 01/23/25 @ 15:50 by Camilo Loja MD) Cigarette smoker History of malignant melanoma COPD, moderate Anxiety Carotid artery stenosis Herpes, genital Mixed hyperlipidemia Surgical History History of cataract surgery both eyes History of hysterectomy History of removal of cyst Right buttock August, [facility] History of hip surgery Left [address] History of tubal ligation Family History Mother Diabetes Sister Diabetes Hypertension Stroke Heart disease Breast cancer 70's Family/Other Diabetes maternal uncle Denies family history of Colon cancer Ovarian cancer Clotting disorder Hyperlipidemia Anesthesia complication Bleeding disorder Uterine cancer Thyroid disease Social History Smoking and tobacco/nicotine status: former use of tobacco/nicotine Second hand smoke exposure: No Alcohol intake: unknown Substance/Drug Use: unknown Adopted: No Caregiver/support person: No Lives independently: Yes Household members: spouse Housing: House Marital status: service: No Current occupational status: unemployed and retired Do you think of yourself as: Straight/Heterosexual Current gender identity: Female Vitals/I&O/Wt Last Vital Signs Temp 98.7 F 01/23/25 09:38 Pulse 88 01/23/25 15:07 Resp 17 01/23/25 09:38 BP 127/71 01/23/25 15:07 Pulse Ox 90 01/23/25 15:07 O2 Del Method Room Air 01/23/25 15:07 Weight last 48 hrs Weight 108 lb Physical Exam Const: COMMON NORMALS: no acute distress and patient oriented x3 HENMT: COMMON NORMALS: normocephalic HEAD & SCALP: normocephalic Eye: COMMON NORMALS: Equal, round and reactive pupils present and EOMs intact bilaterally PUPIL: Yes Equal, round and reactive pupils present Resp: COMMON NORMALS: normal respiratory effort, No retractions, No use of accessory muscles and clear to auscultation bilaterally AUSCULTATION: clear to auscultation bilaterally Cardio: COMMON NORMALS: regular rate, regular rhythm, S1 normal heart sound present and S2 normal heart sound present RATE: regular rate RHYTHM: regular rhythm HEART SOUNDS: S1 normal heart sound present and S2 normal heart sound present GI: COMMON NORMALS: Soft to palpation AUSCULTATION: Yes Hypoactive bowel sounds present PALPATION: Yes Soft to palpation, Yes Tenderness to palpation present (GI) (Diffuse tenderness), No Guarding due to palpation present (GI) and No Rigid due to palpation OTHER: No guarding, no rebound, negative rigidity Extremity: COMMON NORMALS: no calf tenderness and no pedal edema Neuro: COMMON NORMALS: patient oriented x3, CN's II-XII intact bilaterally and moves all extremities Psych: COMMON NORMALS: mental status grossly normal Data 01/23/25 12:24 01/23/25 12:24 A&P Assessment and plan 1. Acute diverticulitis: No acute surgical invention. Serial abdominal exams. N.p.o. for now until return of bowel function. IV antibiotics for this acute diverticulitis. No obvious signs of ischemia on workup and no peritoneal signs on exam. Will continue with serial exams and no surgery for now. Advance diet once bowel function returns. She took mag citrate yesterday so no bowel regimen needed at this time. Continue conservative treatment and IV fluid hydration. 2. Sigmoid diverticulosis: 3. Constipation, slow transit: PDMP PDMP Reviewed: Not Reviewed Coding Level of Care Code 88222 Diagnoses Acute diverticulitis K57.92 Sigmoid diverticulosis K57.30 Constipation, slow transit K59.01
[2025-01-23] MEDS: piperacillin-tazobactam 3.375 GM in sodium chloride 0.9% (plus) 50 ML IV (16:59)
[2025-01-23] MEDS: pantoprazole 40 mg SDV IVP (18:38)
[2025-01-23 19:19] LABS: Thyroid Stimulating Hormone 0.77 uIU/mL (0.27-4.20)
[2025-01-24] VITALS (13 sets, daily range): BP systolic 107–134; BP diastolic 43–65; PULSE 68–103; RESP 15–18; TEMP 36.6–37.3; O2SAT 90–97
[2025-01-24] MEDS: piperacillin-tazobactam 3.375 GM in sodium chloride 0.9% (plus) 50 ML IV ×3 (00:32→17:21)
[2025-01-24 03:33] LABS: Hematocrit 39.1 % (36-47); Hemoglobin 13.20 g/dL (11.27-16.99); Mean Corpuscular HGB Conc 33.8 g/dL (30-55); Mean Corpuscular Hemoglobin 31.1 pg (27-33); Mean Corpuscular Volume 92.2 fl (85-98); Nucleated Red Blood Cells % 0 %; Platelet Count 204 10^3/cmm (157-399); Red Blood Count 4.24 10^6/uL (3.85-5.65); White Blood Count 13.23 10^3/uL (3.29-11.43)
[2025-01-24 04:02] LABS: Alanine Aminotransferase 10 U/L (0-33); Albumin Level 3.5 g/dL (3.5-5.2); Alkaline Phosphatase 63 U/L (35-105); Anion Gap 13.8 (5-19); Aspartate Amino Transferase 18 U/L (0-32); Blood Urea Nitrogen 8 mg/dL (8-23); Calcium 8.8 mg/dL (8.5-10.5); Carbon Dioxide 22 mmol/L (22-29); Chloride 107 mmol/L (98-107); Creatinine Clr Calc Pharmacy 53.9820; Globulin 2.4 g/dL (1.3-4.6); Glucose 106 mg/dL (65-115); Magnesium 1.9 mg/dL (1.7-2.3); Osmolality Calculated 287 mOsm/kg (285-295); Potassium 3.8 mmol/L (3.5-5.1); Sodium 139 mmol/L (136-145); Total Protein 5.9 g/dL (6.6-8.7)
[2025-01-24 04:33] LABS: INR 1.14 (0.8-1.2); Prothrombin Time 15.40 SECONDS (12.1-14.9)
[2025-01-24 09:55] LABS: Glucose Urine UA Negative (Normal); Nitrate Urine Negative (Negative)
[2025-01-24 10:03] LABS: Add Urine Microscopic? YES; Specific Gravity, Urine 1.046 (1.005-1.030); UA Manual Slide Review YES
--- NOTE | 2025-01-24 12:16 | P.PN_ITS ---
Subjective 2 Subjective: Patient was seen this morning, currently alert oriented x 3, following all commands, no chest pain, palpitations, does report abdominal pain, is passing gas from below no bowel movement, no nausea, no vomiting Vitals/I&O/Wt Last Vital Signs Temp 98.9 F 01/24/25 07:33 Pulse 94 01/24/25 11:16 Resp 16 01/24/25 11:16 BP 119/61 01/24/25 07:33 Pulse Ox 91 01/24/25 11:16 O2 Del Method Room Air 01/24/25 11:16 01/23/25 01/24/25 01/24/25 22:59 06:59 14:59 Intake Total 50 / 50 1000 / 1050 Balance 50 / 50 1000 / 1050 Weight last 48 hrs Weight 54.023 kg Weight 48.988 kg Weight 48.988 kg Physical Exam 2 Const: COMMON NORMALS: no acute distress and patient oriented x3 Resp: COMMON NORMALS: normal respiratory effort, No retractions, No use of accessory muscles and clear to auscultation bilaterally AUSCULTATION: clear to auscultation bilaterally Cardio: COMMON NORMALS: regular rate, regular rhythm, S1 normal heart sound present and S2 normal heart sound present RATE: regular rate RHYTHM: r egular rhythm HEART SOUNDS: S1 normal heart sound present and S2 normal heart sound present GI: OTHER: Abdomen soft, distended, scattered bowel sounds, no guarding, no rebound, does have diffuse tenderness Extremity: COMMON NORMALS: no calf tenderness and no pedal edema Neuro: COMMON NORMALS: patient oriented x3 Psych: COMMON NORMALS: mental status grossly normal Data 01/24/25 03:03 01/24/25 03:03 Micro: Microbiology 01/23/25 15:44 Blood Culture - Preliminary Blood SPECIMEN COLLECTED 01/23/25 15:42 Blood Culture - Preliminary Blood SPECIMEN COLLECTED A&P Assessment and plan 1. Acute diverticulitis: Plan: Acute diverticulitis -Colonic obstruction? -Bowel ischemia?, Lactic acid 1.2 CT/CT abdomen pelvis w con* [id number] IMPRESSION: 1. Findings suggest acute diverticulitis involving the sigmoid colon. There is a colonic stool column transitional point at the distal sigmoid colon. Pneumatosis intestinalis is seen in the sigmoid colon. The diverticulitis complicated by colonic obstruction and bowel ischemia can not be excluded. Surgical consultation is advised. No abscess. 2. Mild calcified atherosclerotic changes are seen throughout the abdominal aorta. 3. Severe lumbar spine degenerative changes. -Plan - Serial abdominal exams - IV Zosyn - IV morphine -continue Zosyn -General Surgery on consult - Full code -Lovenox COPD, -DuoNeb -Monitor respiratory status closely PDMP PDMP Reviewed: Not Reviewed Attestations 2 Medical Necessity Statement*: Patient requires hospitalization for acute diverticulitis Diagnoses Acute diverticulitis K57.92
--- NOTE | 2025-01-24 12:36 | P.PN_ITS ---
Subjective 2 Subjective: Patient was seen this morning, currently alert oriented x 3, following all commands, no chest pain, palpitations, does report abdominal pain, is passing gas from below no bowel movement, no nausea, no vomiting. Overall feeling better today Vitals/I&O/Wt Last Vital Signs Temp 98.9 F 01/24/25 07:33 Pulse 94 01/24/25 11:16 Resp 16 01/24/25 11:16 BP 119/61 01/24/25 07:33 Pulse Ox 91 01/24/25 11:16 O2 Del Method Room Air 01/24/25 11:16 01/23/25 01/24/25 01/24/25 22:59 06:59 14:59 Intake Total 50 / 50 1000 / 1050 50 / 50 Balance 50 / 50 1000 / 1050 50 / 50 Weight last 48 hrs Weight 119 lb 1.6 oz Weight 108 lb Weight 108 lb Physical Exam 2 Const: COMMON NORMALS: no acute distress and patient oriented x3 Resp: COMMON NORMALS: normal respiratory effort, No retractions, No use of accessory muscles and clear to auscultation bilaterally AUSCULTATION: clear to auscultation bilaterally Cardio: COMMON NORMALS: regular rate, regular rhythm, S1 normal heart sound present and S2 normal heart sound present RATE: regular rate RHYTHM: r egular rhythm HEART SOUNDS: S1 normal heart sound present and S2 normal heart sound present GI: OTHER: Abdomen soft, distended, scattered bowel sounds, no guarding, no rebound, does have diffuse tenderness Extremity: COMMON NORMALS: no calf tenderness and no pedal edema Neuro: COMMON NORMALS: patient oriented x3 Psych: COMMON NORMALS: mental status grossly normal Data 01/24/25 03:03 01/24/25 03:03 Micro: Microbiology 01/23/25 15:44 Blood Culture - Preliminary Blood SPECIMEN COLLECTED 01/23/25 15:42 Blood Culture - Preliminary Blood SPECIMEN COLLECTED A&P Assessment and plan 1. Acute diverticulitis: Plan: Acute diverticulitis -Colonic obstruction? -Bowel ischemia?, Lactic acid 1.2 CT/CT abdomen pelvis w con* [id number] IMPRESSION: 1. Findings suggest acute diverticulitis involving the sigmoid colon. There is a colonic stool column transitional point at the distal sigmoid colon. Pneumatosis intestinalis is seen in the sigmoid colon. The diverticulitis complicated by colonic obstruction and bowel ischemia can not be excluded. Surgical consultation is advised. No abscess. 2. Mild calcified atherosclerotic changes are seen throughout the abdominal aorta. 3. Severe lumbar spine degenerative changes. -Plan - Serial abdominal exams - IV Zosyn - IV morphine -continue Zosyn -General Surgery on consult - Full code -Lovenox COPD, -DuoNeb -Monitor respiratory status closely PDMP PDMP Reviewed: Not Reviewed Attestations 2 Medical Necessity Statement*: per hospitalist team Coding Level of Care Code Acute Code for [facility] Diagnoses Acute diverticulitis K57.92
--- NOTE | 2025-01-24 15:44 | PC.NURSE ---
Pharmacy called about patient's home medication Yupelri inhaler because we do not carry it. This nurse asked patient if she could have a family member bring in the medication. Patient stated she was going to call [facility] to see if she could bring it in. Patient to notify nursing staff if the medication is brought in.
[2025-01-24] MEDS: pantoprazole 40 mg SDV IVP (17:21)
[2025-01-25] VITALS (11 sets, daily range): BP systolic 130–145; BP diastolic 54–72; PULSE 81–104; RESP 15–18; TEMP 36.9–37.8; O2SAT 90–97
[2025-01-25] MEDS: piperacillin-tazobactam 3.375 GM in sodium chloride 0.9% (plus) 50 ML IV ×3 (00:34→17:29)
[2025-01-25 04:42] LABS: Hematocrit 37.1 % (36-47); Hemoglobin 12.40 g/dL (11.27-16.99); Mean Corpuscular HGB Conc 33.4 g/dL (30-55); Mean Corpuscular Hemoglobin 31.3 pg (27-33); Mean Corpuscular Volume 93.7 fl (85-98); Nucleated Red Blood Cells % 0 %; Platelet Count 202 10^3/cmm (157-399); Red Blood Count 3.96 10^6/uL (3.85-5.65); White Blood Count 13.36 10^3/uL (3.29-11.43)
[2025-01-25 04:54] LABS: Alanine Aminotransferase 9 U/L (0-33); Albumin Level 3.2 g/dL (3.5-5.2); Alkaline Phosphatase 65 U/L (35-105); Anion Gap 10.5 (5-19); Aspartate Amino Transferase 15 U/L (0-32); Blood Urea Nitrogen 8 mg/dL (8-23); Calcium 8.2 mg/dL (8.5-10.5); Carbon Dioxide 22 mmol/L (22-29); Chloride 108 mmol/L (98-107); Creatinine Clr Calc Pharmacy 56.0030; Globulin 2.3 g/dL (1.3-4.6); Glucose 102 mg/dL (65-115); Magnesium 1.9 mg/dL (1.7-2.3); Osmolality Calculated 283 mOsm/kg (285-295); Potassium 3.5 mmol/L (3.5-5.1); Sodium 137 mmol/L (136-145); Total Protein 5.5 g/dL (6.6-8.7)
--- NOTE | 2025-01-25 10:56 | P.PN_ITS ---
Subjective 2 Subjective: No nausea Abdomen benign Minimal abdominal pain left lower quadrant Nondistended Passing some gas Vitals/I&O/Wt Last Vital Signs Temp 98.5 F 01/25/25 08:00 Pulse 81 01/25/25 08:00 Resp 18 01/25/25 08:00 BP 141/72 01/25/25 08:00 Pulse Ox 93 01/25/25 08:00 O2 Del Method Room Air 01/25/25 08:00 01/24/25 01/25/25 01/25/25 22:59 06:59 14:59 Intake Total 50 / 1100 3116.000 / 4216.000 50 / 50 Output Total 550 / 550 400 / 400 Balance -500 / 550 3116.000 / 3666.000 -350 / -350 Weight last 48 hrs Weight 119 lb 1.6 oz Weight 108 lb Physical Exam 2 Narrative: Chest: Unlabored breathing room air. No lymphadenopathy. Heart: Regular rate and rhythm. Abdomen: Soft, mildly tender left lower quadrant, nondistended. No masses or lymphadenopathy. Data 01/25/25 03:51 01/25/25 03:51 Micro: Microbiology 01/23/25 15:44 Blood Culture - Preliminary Blood NEGATIVE TO DATE 01/23/25 15:42 Blood Culture - Preliminary Blood NEGATIVE TO DATE A&P Assessment and plan 1. Acute diverticulitis: Plan: 74-year-old female admitted with diverticulitis. Continue IV antibiotics. Okay to start clears. Rest of care per hospitalist. PDMP PDMP Reviewed: Not Reviewed Attestations 2 Medical Necessity Statement*: N/A Coding Level of Care Code 27300 Diagnoses Acute diverticulitis K57.92
--- NOTE | 2025-01-25 16:31 | P.PN_ITS ---
Subjective 2 Subjective: Tmax 99.4 Fahrenheit today. White blood cell count at 13,000. Patient says she is passing flatus and has had A few pellet-like stools today. Medications: Reviewed: Yes Vitals/I&O/Wt Last Vital Signs Temp 99.4 F 01/25/25 11:53 Pulse 82 01/25/25 15:51 Resp 16 01/25/25 15:51 BP 136/65 01/25/25 11:53 Pulse Ox 94 01/25/25 15:51 O2 Del Method Room Air 01/25/25 15:51 01/25/25 01/25/25 01/25/25 06:59 14:59 22:59 Intake Total 3116.000 / 4216.000 100 / 100 Output Total 400 / 400 Balance 3116.000 / 3666.000 -300 / -300 Weight last 48 hrs Weight 54.023 kg Weight 48.988 kg Physical Exam 2 Narrative: General: No acute distress, AO x3 HEENT: PERRLA, pupils bilaterally equal and reactive, pallors not present Chest: Normal vesicular breath sounds, no added sounds, equal good air entry bilaterally CVS: S1-S2 regular, no murmurs, no tachycardia, no gallops, no rubs Abdomen: Soft, tender to palpation left lower quadrant. Neuro: No focal deficits, no facial deformity, AO x3, power 5/5 in all limbs Extremities: No edema clubbing or cyanosis Data 01/25/25 03:51 01/25/25 03:51 Micro: Microbiology 01/23/25 15:44 Blood Culture - Preliminary Blood NEGATIVE TO DATE 01/23/25 15:42 Blood Culture - Preliminary Blood NEGATIVE TO DATE A&P Assessment and plan 1. Acute diverticulitis: Plan: Acute diverticulitis -Colonic obstruction? -Bowel ischemia?, Lactic acid 1.2 CT/CT abdomen pelvis w con* [id number] IMPRESSION: 1. Findings suggest acute diverticulitis involving the sigmoid colon. There is a colonic stool column transitional point at the distal sigmoid colon. Pneumatosis intestinalis is seen in the sigmoid colon. The diverticulitis complicated by colonic obstruction and bowel ischemia can not be excluded. Surgical consultation is advised. No abscess. 2. Mild calcified atherosclerotic changes are seen throughout the abdominal aorta. 3. Severe lumbar spine degenerative changes. -Plan - Serial abdominal exams - IV Zosyn - IV morphine -continue Zosyn -General Surgery on consult - Full code -Lovenox COPD, -DuoNeb -Monitor respiratory status closely January 25, 2025 Patient currently admitted with acute sigmoid diverticulitis. General surgery following patient. Clinically does not appear to have any signs of colonic obstruction. Lactate level was normal at 1.2 therefore considered less likely to be ischemic insult. Continue bowel rest with n.p.o. diet. Continue IV antibiotic piperacillin/tazobactam. Continue IV fluids sodium chloride at 100 cc an hour. Closely monitor for improvement. Patient is still significantly tender over the left lower quadrant, however states she feels slightly better today after having passed some flatus and a small bowel movement today. PDMP PDMP Reviewed: Not Reviewed Attestations 2 Medical Necessity Statement*: Continued need for IV antibiotic, close abdominal monitoring Coding Level of Care Code Acute Code for Chg Fwd Moderate MDM includes number and complexity of problems actively addressed during encounter, amount and/or complexity of data reviewed/ordered and described risk of complication, morbidity or mortality of management as documented Diagnoses Acute diverticulitis K57.92
[2025-01-25] MEDS: pantoprazole 40 mg SDV IVP (17:29)
[2025-01-26] VITALS (10 sets, daily range): BP systolic 105–150; BP diastolic 57–73; PULSE 60–103; RESP 16–17; TEMP 36.6–38.3; O2SAT 90–97
[2025-01-26] MEDS: piperacillin-tazobactam 3.375 GM in sodium chloride 0.9% (plus) 50 ML IV ×2 (01:29→08:08)
[2025-01-26 05:53] LABS: Hematocrit 36.6 % (36-47); Hemoglobin 11.80 g/dL (11.27-16.99); Mean Corpuscular HGB Conc 32.2 g/dL (30-55); Mean Corpuscular Hemoglobin 30.9 pg (27-33); Mean Corpuscular Volume 95.8 fl (85-98); Nucleated Red Blood Cells % 0 %; Platelet Count 192 10^3/cmm (157-399); Red Blood Count 3.82 10^6/uL (3.85-5.65); White Blood Count 14.23 10^3/uL (3.29-11.43)
[2025-01-26 06:11] LABS: Alanine Aminotransferase 10 U/L (0-33); Albumin Level 3.0 g/dL (3.5-5.2); Alkaline Phosphatase 116 U/L (35-105); Anion Gap 12.3 (5-19); Aspartate Amino Transferase 22 U/L (0-32); Blood Urea Nitrogen 5 mg/dL (8-23); Calcium 8.3 mg/dL (8.5-10.5); Carbon Dioxide 21 mmol/L (22-29); Chloride 109 mmol/L (98-107); Creatinine Clr Calc Pharmacy 56.5308; Globulin 2.3 g/dL (1.3-4.6); Glucose 105 mg/dL (65-115); Magnesium 1.9 mg/dL (1.7-2.3); Osmolality Calculated 286 mOsm/kg (285-295); Potassium 3.3 mmol/L (3.5-5.1); Sodium 139 mmol/L (136-145); Total Protein 5.3 g/dL (6.6-8.7)
--- NOTE | 2025-01-26 10:42 | XR_ITS ---
WS: [id number] Portable AP upright chest, 01/26/2025 Clinical Data: assess for pneumonia vs atelactasis Comparison: Portable chest, 10/10/2021 Findings: A small left costophrenic angle opacity remains the same. The right costophrenic angle opacity has cleared. No nodules, masses or effusions are seen. The heart is normal. The pulmonary vascularity is not increased. No pneumonia or pneumothorax is seen. The aortic arch shows calcification and tortuosity. The diaphragms are flattened. Monitor leads are on the chest wall. XR/XR chest 1V portable [id number] Impression: 1. Clearing of right costophrenic angle opacity. 2. No change in opacity at left costophrenic angle. 3. Atherosclerosis and hyperinflation.
--- NOTE | 2025-01-26 10:54 | PHA.VACGOAL ---
Vancomycin Goal - Goal Vancomycin Goal:: 10-15 mg/L Vancomycin Indication:: Other (Question for intra-abdominal infection) - Therapy Current therapy:: Meropenem Day of therpy:: Day []of [] . Day 0 of ? Actual body weight (kg): 122 lb Dosing weight (kg): 55kg - Data Labs: WBC 14.23 10^3/uL (3.29-11.43) H 01/26/25 05:05 Corrected WBC Cancelled 01/23/25 11:55 RBC 3.82 10^6/uL (3.85-5.65) L 01/26/25 05:05 Hgb 11.80 g/dL (11.27-16.99) 01/26/25 05:05 Hct 36.6 % (36-47) 01/26/25 05:05 MCV 95.8 fl (85-98) 01/26/25 05:05 MCH 30.9 pg (27-33) 01/26/25 05:05 MCHC 32.2 g/dL (30-55) 01/26/25 05:05 RDW 14.3 % (12.1-15.1) 01/26/25 05:05 Sodium 139 mmol/L (136-145) 01/26/25 05:05 Potassium 3.3 mmol/L (3.5-5.1) L 01/26/25 05:05 Chloride 109 mmol/L (98-107) H 01/26/25 05:05 Carbon Dioxide 21 mmol/L (22-29) L 01/26/25 05:05 Anion Gap 12.3 (5-19) 01/26/25 05:05 BUN 5 mg/dL (8-23) L 01/26/25 05:05 Creatinine 0.5 mg/dL (0.5-0.9) 01/26/25 05:05 GFR Calculation Not Reportable 01/26/25 05:05 Laboratory Tests 01/23/25 01/24/25 01/25/25 12:24 03:03 03:51 WBC 13.49 H 13.23 H 13.36 H Creatinine 0.7 0.6 0.6 01/26/25 05:05 WBC 14.23 H Creatinine 0.5 Pertinent tests:: Microbiology 01/23/25 15:44 Blood Blood Culture - Preliminary NEGATIVE TO DATE 01/23/25 15:42 Blood Blood Culture - Preliminary NEGATIVE TO DATE Last dialysis session:: N/A Treatment plan:: new consult Regimen:: Vancomycin 500mg q12h, starting at noon today. Follow up:: Vancomycin steady state serum concentration ordered before 5th dose (01/28 @ 1100)
[2025-01-26 11:36] LABS: Glucose Urine UA Negative (Normal); Nitrate Urine Negative (Negative); Specific Gravity, Urine 1.024 (1.005-1.030)
[2025-01-26 11:52] LABS: Add Urine Microscopic? YES
--- NOTE | 2025-01-26 12:12 | P.PN_ITS ---
Subjective 2 Subjective: Feeling better Having multiple bowel movements Passing a lot of gas Reports no abdominal pain Tolerating clear liquid Vitals/I&O/Wt Last Vital Signs Temp 98.1 F 01/26/25 11:23 Pulse 85 01/26/25 11:23 Resp 16 01/26/25 11:23 BP 128/64 01/26/25 11:23 Pulse Ox 90 01/26/25 11:23 O2 Del Method Room Air 01/26/25 11:23 01/25/25 01/26/25 01/26/25 22:59 06:59 14:59 Intake Total 1050 / 1150 1033.333 / 2183.333 166.667 / 166.667 Output Total 100 / 100 Balance 1050 / 750 1033.333 / 1783.333 66.667 / 66.667 Weight last 48 hrs Weight 122 lb Physical Exam 2 Narrative: Chest: Unlabored breathing room air. No lymphadenopathy. Heart: Regular rate and rhythm. Abdomen: Soft, nontender, nondistended. Data 01/26/25 05:05 01/26/25 05:05 A&P Assessment and plan 1. Acute diverticulitis: Plan: 74-year-old female with diverticulitis. Clinically doing better. Noted white count trending up. Recommend 1 more day of IV antibiotics. Continue clear liquids. If white count trends down tomorrow from a surgical perspective can trial p.o. antibiotics. Discussed with hospitalist. PDMP PDMP Reviewed: Not Reviewed Attestations 2 Medical Necessity Statement*: N/A Coding Level of Care Code Acute Code for [facility] Diagnoses Acute diverticulitis K57.92
[2025-01-26] MEDS: vancomycin 500 MG in sodium chloride 0.9% (plus) 100 ML 200 MG IV (12:50)
[2025-01-26] MEDS: meropenem 1,000 mg SDV 1000 MG IVP ×2 (13:26→21:36)
[2025-01-26 14:54] LABS: Coronavirus 229E,HKU1,NL63,OC4 Not Detected (NOT DETECT); Parainfluenza Virus Type 1 Not Detected (NOT DETECT); Parainfluenza Virus Type 2 Not Detected (NOT DETECT); Parainfluenza Virus Type 3 Not Detected (NOT DETECT); Parainfluenza Virus Type 4 Not Detected (NOT DETECT); SARS-COV-2 Not Detected (NOT DETECT)
--- NOTE | 2025-01-26 16:20 | P.PN_ITS ---
Subjective 2 Subjective: Patient states her abdomen feels better today. She is passing flatus and has had few more constipated bowel movements. Medications: Reviewed: Yes Vitals/I&O/Wt Last Vital Signs Temp 98.4 F 01/26/25 15:29 Pulse 86 01/26/25 15:29 Resp 16 01/26/25 15:29 BP 124/59 01/26/25 15:29 Pulse Ox 96 01/26/25 15:29 O2 Del Method Room Air 01/26/25 15:29 01/26/25 01/26/25 01/26/25 06:59 14:59 22:59 Intake Total 1033.333 / 2183.333 266.667 / 266.667 Output Total 100 / 100 Balance 1033.333 / 1783.333 166.667 / 166.667 Weight last 48 hrs Weight 55.338 kg Physical Exam 2 Narrative: General: No acute distress, AO x3 HEENT: PERRLA, pupils bilaterally equal and reactive, pallors not present Chest: Normal vesicular breath sounds, no added sounds, equal good air entry bilaterally CVS: S1-S2 regular, no murmurs, no tachycardia, no gallops, no rubs Abdomen: Soft, tender to palpation left lower quadrant. Neuro: No focal deficits, no facial deformity, AO x3, power 5/5 in all limbs Extremities: No edema clubbing or cyanosis Data 01/26/25 05:05 01/26/25 05:05 A&P Assessment and plan 1. Acute diverticulitis: Plan: Acute diverticulitis -Colonic obstruction? -Bowel ischemia?, Lactic acid 1.2 CT/CT abdomen pelvis w con* [id number] IMPRESSION: 1. Findings suggest acute diverticulitis involving the sigmoid colon. There is a colonic stool column transitional point at the distal sigmoid colon. Pneumatosis intestinalis is seen in the sigmoid colon. The diverticulitis complicated by colonic obstruction and bowel ischemia can not be excluded. Surgical consultation is advised. No abscess. 2. Mild calcified atherosclerotic changes are seen throughout the abdominal aorta. 3. Severe lumbar spine degenerative changes. -Plan - Serial abdominal exams - IV Zosyn - IV morphine -continue Zosyn -General Surgery on consult - Full code -Lovenox COPD, -DuoNeb -Monitor respiratory status closely January 25, 2025 Patient currently admitted with acute sigmoid diverticulitis. General surgery following patient. Clinically does not appear to have any signs of colonic obstruction. Lactate level was normal at 1.2 therefore considered less likely to be ischemic insult. Continue bowel rest with n.p.o. diet. Continue IV antibiotic piperacillin/tazobactam. Continue IV fluids sodium chloride at 100 cc an hour. Closely monitor for improvement. Patient is still significantly tender over the left lower quadrant, however states she feels slightly better today after having passed some flatus and a small bowel movement today. January 26, 2025 Patient reports that her abdominal pain is better today. On exam belly is appearing to be less firm in the left lower quadrant, less tender today. She is passing flatus. Still with stool pellets for bowel movements. Tolerating clear liquid. No vomiting. However noted to have a Tmax of 100.1 Fahrenheit overnight with an increase in white count to 14,000 today. Broaden antibiotic coverage from piperacillin/tazobactam to meropenem and vancomycin today for additional ESBL, pseudomonal and enterococcal coverage. Will additionally evaluate for alternate sources of fever since abdominal exam is otherwise appearing clinically better. Obtain chest x-ray to evaluate for any pneumonia versus atelectasis, check UA for UTI, check respiratory viral panel as patient has been coughing on and off. Blood culture remains negative to date. If WBC count continues to trend up or patient continues to be febrile with no other potential cause identified, will repeat CT of the abdomen and pelvis to evaluate for development of abscess as a complication of acute diverticulitis. PDMP PDMP Reviewed: Not Reviewed Attestations 2 Medical Necessity Statement*: Increasing white blood cell count, febrile Coding Level of Care Code Acute Code for [facility] Fwd High MDM includes number and complexity of problems actively addressed during encounter, amount and/or complexity of data reviewed/ordered and described risk of complication, morbidity or mortality of management as documented Diagnoses Acute diverticulitis K57.92
[2025-01-26] MEDS: pantoprazole 40 mg SDV IVP (17:39)
[2025-01-27] VITALS (10 sets, daily range): BP systolic 135–166; BP diastolic 52–79; PULSE 88–110; RESP 15–18; TEMP 36.9–38.2; O2SAT 90–97
[2025-01-27] MEDS: vancomycin 500 MG in sodium chloride 0.9% (plus) 100 ML 200 MG IV ×2 (00:19→11:18)
[2025-01-27] MEDS: meropenem 1,000 mg SDV 1000 MG IVP ×3 (05:23→21:22)
--- NOTE | 2025-01-27 08:39 | CT_ITS ---
WS: [id number] CT ABDOMEN AND PELVIS WITH CONTRAST HISTORY: acute diverticulitis TECHNIQUE: Imaging performed of the abdomen and pelvis with IV contrast. Single phase imaging of the abdomen. Coronal and sagittal reformats are submitted. All CT scans at [facility] use at least one of these dose optimization techniques: automated exposure control; mA and/or kV adjustment per patient size (includes targeted exams where dose is matched to clinical indication); or iterative reconstruction. IV CONTRAST: Omnipaque 350; 100 mL IV. Oral contrast: No DLP: 352.79 mGy.cm COMPARISON: 01/23/2025 Lower thorax: New small bilateral pleural effusions with compressive atelectasis at the lung bases. Heart is normal size. No hiatal hernia. Liver/biliary system: Normal size with no intrahepatic dilatation. Gallbladder: Mild gallbladder hydrops. No wall thickening or enhancement. Probably related to limited eating and prolonged fasting. Pancreas: Mild atrophy. Spleen: Normal size with granuloma. Adrenal glands: Normal. Right kidney: Normal. Left kidney: Normal. Aorta: Mild atherosclerosis with no aneurysm. Lymphadenopathy: Small retroperitoneal hyperemic lymph nodes. Lymph nodes have increased in size and number since 01/23/2025. Free fluid: New small to moderate amount of free fluid and ascites is now present. There is fluid surrounding the liver and spleen and extending along the paracolic gutters. Small amount of fluid in the pelvis. There is now mesenteric edema. GI tract: Stomach is not distended. No small bowel obstruction but there is increasing fluid in the distal small bowel with mildly hyperemic wall. Reidentified is long segment sigmoid colonic wall thickening with peripheral enhancement. Numerous diverticula are present. There is also pneumatosis which is more prominent than on the prior study. Colonic wall thickening measures up to 1.3 cm. There are a few foci of air which may be contained within very peripheral diverticula but there is one that may indicate a perforation in the central pelvis. No definite abscess is identified. There is mild peripheral enhancement in the ascites in the LEFT pelvis. Continued increased fecal content in the lumen of the sigmoid colon. Abdominal wall: Soft tissue anasarca. Pelvis: Small amount of free fluid. Soft tissue edema. Bones: Prior LEFT hip arthroplasty. CT/CT abdomen pelvis w con* [id number] IMPRESSION: 1. New small bilateral pleural effusions. 2. New ascites in the abdomen and pelvis along with mesenteric edema. 3. No improvement in the sigmoid diverticulitis since the prior study. Sigmoid wall enhancement with marked thickening up to 1.3 cm. There is pneumatosis maria r picious for ischemia. Although there is no free air there are a few pockets of air that may be contained perforations or within thin-walled diverticula. 4. No diverticular abscess identified. 5. Suspect peritonitis. 6. Increasing fluid in the distal small bowel may be reactive or early ileus.
[2025-01-27 10:37] LABS: Hematocrit 40.7 % (36-47); Hemoglobin 13.30 g/dL (11.27-16.99); Mean Corpuscular HGB Conc 32.7 g/dL (30-55); Mean Corpuscular Hemoglobin 31.1 pg (27-33); Mean Corpuscular Volume 95.3 fl (85-98); Nucleated Red Blood Cells % 0 %; Platelet Count 261 10^3/cmm (157-399); Red Blood Count 4.27 10^6/uL (3.85-5.65); White Blood Count 14.44 10^3/uL (3.29-11.43)
[2025-01-27] MEDS: iohexol 350 mg/mL 500 mL Btl (per mL) IV (10:42)
[2025-01-27 10:59] LABS: Alanine Aminotransferase 18 U/L (0-33); Albumin Level 3.4 g/dL (3.5-5.2); Alkaline Phosphatase 82 U/L (35-105); Anion Gap 15.9 (5-19); Aspartate Amino Transferase 34 U/L (0-32); Blood Urea Nitrogen 5 mg/dL (8-23); Calcium 8.8 mg/dL (8.5-10.5); Carbon Dioxide 21 mmol/L (22-29); Chloride 104 mmol/L (98-107); Creatinine Clr Calc Pharmacy 57.0771; Globulin 3.0 g/dL (1.3-4.6); Glucose 106 mg/dL (65-115); Osmolality Calculated 284 mOsm/kg (285-295); Sodium 138 mmol/L (136-145); Total Protein 6.4 g/dL (6.6-8.7)
[2025-01-27 11:15] LABS: Potassium 2.9 mmol/L (3.5-5.1)
--- NOTE | 2025-01-27 14:19 | PC.SOCIAL ---
IMM UPDATED IMM dated and initialed, copy placed in chart and copy given to patient at this time.
--- NOTE | 2025-01-27 14:29 | P.PN_ITS ---
Subjective 2 Subjective: Febrile overnight. Tmax 100.9 Fahrenheit. Leukocytosis remains at 14,000. Complains of abdominal cramping in the suprapubic area today. Medications: Reviewed: Yes Vitals/I&O/Wt Last Vital Signs Temp 98.4 F 01/27/25 11:47 Pulse 96 01/27/25 11:47 Resp 16 01/27/25 11:47 BP 166/79 01/27/25 11:47 Pulse Ox 96 01/27/25 11:47 O2 Del Method Room Air 01/27/25 11:47 01/26/25 01/27/25 01/27/25 22:59 06:59 14:59 Intake Total 1000 / 4390.358 2646.333 / 2765.000 1533.333 / 1533.333 Balance 1000 / 1225.906 2152.333 / 2665.000 1533.333 / 1533.333 Weight last 48 hrs Weight 56.699 kg Weight 55.338 kg Physical Exam 2 Narrative: General: No acute distress, AO x3 HEENT: PERRLA, pupils bilaterally equal and reactive, pallors not present Chest: Normal vesicular breath sounds, no added sounds, equal good air entry bilaterally CVS: S1-S2 regular, no murmurs, no tachycardia, no gallops, no rubs Abdomen: Soft, tender to palpation left lower quadrant. Neuro: No focal deficits, no facial deformity, AO x3, power 5/5 in all limbs Extremities: No edema clubbing or cyanosis Data 01/27/25 10:23 01/27/25 10:23 A&P Assessment and plan 1. Acute diverticulitis: 2. Hypokalemia: Plan: Acute diverticulitis -Colonic obstruction? -Bowel ischemia?, Lactic acid 1.2 CT/CT abdomen pelvis w con* [id number] IMPRESSION: 1. Findings suggest acute diverticulitis involving the sigmoid colon. There is a colonic stool column transitional point at the distal sigmoid colon. Pneumatosis intestinalis is seen in the sigmoid colon. The diverticulitis complicated by colonic obstruction and bowel ischemia can not be excluded. Surgical consultation is advised. No abscess. 2. Mild calcified atherosclerotic changes are seen throughout the abdominal aorta. 3. Severe lumbar spine degenerative changes. -Plan - Serial abdominal exams - IV Zosyn - IV morphine -continue Zosyn -General Surgery on consult - Full code -Lovenox COPD, -DuoNeb -Monitor respiratory status closely January 25, 2025 Patient currently admitted with acute sigmoid diverticulitis. General surgery following patient. Clinically does not appear to have any signs of colonic obstruction. Lactate level was normal at 1.2 therefore considered less likely to be ischemic insult. Continue bowel rest with n.p.o. diet. Continue IV antibiotic piperacillin/tazobactam. Continue IV fluids sodium chloride at 100 cc an hour. Closely monitor for improvement. Patient is still significantly tender over the left lower quadrant, however states she feels slightly better today after having passed some flatus and a small bowel movement today. January 26, 2025 Patient reports that her abdominal pain is better today. On exam belly is appearing to be less firm in the left lower quadrant, less tender today. She is passing flatus. Still with stool pellets for bowel movements. Tolerating clear liquid. No vomiting. However noted to have a Tmax of 100.1 Fahrenheit overnight with an increase in white count to 14,000 today. Broaden antibiotic coverage from piperacillin/tazobactam to meropenem and vancomycin today for additional ESBL, pseudomonal and enterococcal coverage. Will additionally evaluate for alternate sources of fever since abdominal exam is otherwise appearing clinically better. Obtain chest x-ray to evaluate for any pneumonia versus atelectasis, check UA for UTI, check respiratory viral panel as patient has been coughing on and off. Blood culture remains negative to date. If WBC count continues to trend up or patient continues to be febrile with no other potential cause identified, will repeat CT of the abdomen and pelvis to evaluate for development of abscess as a complication of acute diverticulitis. January 27, 2025 Complains of cramping lower abdominal pain today. Passing flatus and stool. Tolerating clear liquid diet. No vomiting. Tmax 100.9 Fahrenheit overnight. WBC remaining at 14,000. CT of the abdomen and pelvis was repeated today to assess for any diverticular abscess given persisting white count and fever. No diverticular abscess is noted. CT shows persisting sigmoid diverticulitis with sigmoid wall enhancement and thickening up to 1.3 cm. There is no free air however there are a few pockets of air that may be contained perforations are within thin-walled diverticula. Early ileus noted. Antibiotics broadened to meropenem and vancomycin yesterday which we will continue for now. Add stool softeners. PDMP PDMP Reviewed: Not Reviewed Attestations 2 Medical Necessity Statement*: Continued need for IV antibiotics, persisting leukocytosis and fever. Coding Level of Care Code Acute Code for [facility] Fwd Diagnoses Acute diverticulitis K57.92 Hypokalemia E87.6
--- NOTE | 2025-01-27 15:03 | P.PN_ITS ---
Subjective 2 Subjective: Tolerating clears Passing gas Mild abdominal pain Vitals/I&O/Wt Last Vital Signs Temp 98.4 F 01/27/25 11:47 Pulse 96 01/27/25 11:47 Resp 16 01/27/25 11:47 BP 166/79 01/27/25 11:47 Pulse Ox 96 01/27/25 11:47 O2 Del Method Room Air 01/27/25 11:47 01/27/25 01/27/25 01/27/25 06:59 14:59 22:59 Intake Total 1498.333 / 2765.000 1533.333 / 1533.333 Balance 1498.333 / 2665.000 1533.333 / 1533.333 Weight last 48 hrs Weight 125 lb Weight 122 lb Physical Exam 2 Narrative: Chest: Unlabored breathing room air. No lymphadenopathy. Heart: Regular rate and rhythm. Abdomen: Soft, mildly tender, distended Data 01/28/25 05:47 01/28/25 05:47 A&P Assessment and plan 1. Acute diverticulitis: Plan: 74-year-old female with acute diverticulitis. Benign abdominal exam. Tolerating clears. Continue IV antibiotics. PDMP PDMP Reviewed: Not Reviewed Attestations 2 Medical Necessity Statement*: N/A Coding Level of Care Code 02853 Diagnoses Acute diverticulitis K57.92
[2025-01-27] MEDS: pantoprazole 40 mg SDV IVP (17:17)
[2025-01-27] MEDS: sennosides-docusate Tablet 1 TAB PO (17:18)
[2025-01-28] VITALS (7 sets, daily range): BP systolic 131–163; BP diastolic 64–84; PULSE 96–107; RESP 15–18; TEMP 36.8–37.2; O2SAT 91–94
[2025-01-28] MEDS: meropenem 1,000 mg SDV 1000 MG IVP ×3 (05:15→21:11)
[2025-01-28] MEDS: sennosides-docusate Tablet 1 TAB PO ×2 (05:15→16:38)
[2025-01-28 06:06] LABS: Hematocrit 32.0 % (36-47); Hemoglobin 11.00 g/dL (11.27-16.99); Mean Corpuscular HGB Conc 34.4 g/dL (30-55); Mean Corpuscular Hemoglobin 31.3 pg (27-33); Mean Corpuscular Volume 90.9 fl (85-98); Nucleated Red Blood Cells % 0 %; Platelet Count 249 10^3/cmm (157-399); Red Blood Count 3.52 10^6/uL (3.85-5.65); White Blood Count 13.74 10^3/uL (3.29-11.43)
[2025-01-28 06:24] LABS: Alanine Aminotransferase 16 U/L (0-33); Albumin Level 2.9 g/dL (3.5-5.2); Alkaline Phosphatase 69 U/L (35-105); Anion Gap 17.1 (5-19); Aspartate Amino Transferase 28 U/L (0-32); Blood Urea Nitrogen 4 mg/dL (8-23); Calcium 8.0 mg/dL (8.5-10.5); Carbon Dioxide 18 mmol/L (22-29); Chloride 106 mmol/L (98-107); Creatinine Clr Calc Pharmacy 58.6429; Globulin 2.3 g/dL (1.3-4.6); Glucose 83 mg/dL (65-115); Osmolality Calculated 282 mOsm/kg (285-295); Potassium 3.1 mmol/L (3.5-5.1); Sodium 138 mmol/L (136-145); Total Protein 5.2 g/dL (6.6-8.7)
[2025-01-28 06:43] LABS: Lactate (Lactic Acid level) 0.5 mmol/L (0.5-2.2)
--- NOTE | 2025-01-28 11:20 | P.PN_ITS ---
Subjective 2 Subjective: Minimal abdominal pain Mildly distended Benign abdominal exam Tolerating clears Passing gas Small bowel movements Vitals/I&O/Wt Last Vital Signs Temp 98.9 F 01/28/25 07:29 Pulse 101 H 01/28/25 09:11 Resp 16 01/28/25 09:11 BP 132/71 01/28/25 07:29 Pulse Ox 91 01/28/25 09:11 O2 Del Method Room Air 01/28/25 09:11 01/27/25 01/28/25 01/28/25 22:59 06:59 14:59 Intake Total 996.667 / 2530.000 100 / 2630.000 1120 / 1120 Output Total 300 / 300 Balance 696.667 / 2230.000 100 / 2330.000 1120 / 1120 Weight last 48 hrs Weight 133 lb 9.6 oz Weight 125 lb Physical Exam 2 Narrative: Chest: Unlabored breathing room air. No lymphadenopathy. Heart: Regular rate and rhythm. Abdomen: Soft, mildly tender, mildly distended. Data 01/28/25 05:47 01/28/25 05:47 A&P Assessment and plan 1. Acute diverticulitis: Plan: 74-year-old female with diverticulitis. CT scan revealing. White count down today. Abdominal exam benign. Tolerating clears. Surgery is not indicated. Rest of care per hospitalist. PDMP PDMP Reviewed: Not Reviewed Attestations 2 Medical Necessity Statement*: N/A Coding Level of Care Code 92179 Diagnoses Acute diverticulitis K57.92
[2025-01-28] MEDS: vancomycin 500 MG in sodium chloride 0.9% (plus) 100 ML 200 MG IV ×3 (11:25→21:09)
--- NOTE | 2025-01-28 14:30 | PM.PN ---
Subjective Subjective: Febrile to 100.7 Fahrenheit last evening. Continues to complain of cramping lower abdominal pain. Medications: Reviewed: Yes Vitals/I&O/Wt Last Vital Signs Temp 98.2 F 01/28/25 19:44 Pulse 96 01/28/25 19:59 Resp 18 01/28/25 19:59 BP 137/69 01/28/25 19:44 Pulse Ox 92 01/28/25 19:59 O2 Del Method Room Air 01/28/25 20:00 01/28/25 01/28/25 01/29/25 14:59 22:59 06:59 Intake Total 1460 / 1460 1340 / 2800 Balance 1460 / 1460 1340 / 2800 Weight last 48 hrs Weight 60.6 kg Weight 56.699 kg Physical Exam Narrative: General: No acute distress, AO x3 HEENT: PERRLA, pupils bilaterally equal and reactive, pallors not present Chest: Normal vesicular breath sounds, no added sounds, equal good air entry bilaterally CVS: S1-S2 regular, no murmurs, no tachycardia, no gallops, no rubs Abdomen: Soft, tender to palpation left lower quadrant. Neuro: No focal deficits, no facial deformity, AO x3, power 5/5 in all limbs Extremities: No edema clubbing or cyanosis Data 01/29/25 05:10 01/29/25 05:10 Micro: Microbiology 01/23/25 15:44 Blood Culture - Final Blood NO GROWTH AFTER 5 DAYS 01/23/25 15:42 Blood Culture - Final Blood NO GROWTH AFTER 5 DAYS A&P Assessment and plan 1. Acute diverticulitis: 2. Hypokalemia: Plan: Acute diverticulitis -Colonic obstruction? -Bowel ischemia?, Lactic acid 1.2 CT/CT abdomen pelvis w con* [id number] IMPRESSION: 1. Findings suggest acute diverticulitis involving the sigmoid colon. There is a colonic stool column transitional point at the distal sigmoid colon. Pneumatosis intestinalis is seen in the sigmoid colon. The diverticulitis complicated by colonic obstruction and bowel ischemia can not be excluded. Surgical consultation is advised. No abscess. 2. Mild calcified atherosclerotic changes are seen throughout the abdominal aorta. 3. Severe lumbar spine degenerative changes. -Plan - Serial abdominal exams - IV Zosyn - IV morphine -continue Zosyn -General Surgery on consult - Full code -Lovenox COPD, -DuoNeb -Monitor respiratory status closely January 25, 2025 Patient currently admitted with acute sigmoid diverticulitis. General surgery following patient. Clinically does not appear to have any signs of colonic obstruction. Lactate level was normal at 1.2 therefore considered less likely to be ischemic insult. Continue bowel rest with n.p.o. diet. Continue IV antibiotic piperacillin/tazobactam. Continue IV fluids sodium chloride at 100 cc an hour. Closely monitor for improvement. Patient is still significantly tender over the left lower quadrant, however states she feels slightly better today after having passed some flatus and a small bowel movement today. January 26, 2025 Patient reports that her abdominal pain is better today. On exam belly is appearing to be less firm in the left lower quadrant, less tender today. She is passing flatus. Still with stool pellets for bowel movements. Tolerating clear liquid. No vomiting. However noted to have a Tmax of 100.1 Fahrenheit overnight with an increase in white count to 14,000 today. Broaden antibiotic coverage from piperacillin/tazobactam to meropenem and vancomycin today for additional ESBL, pseudomonal and enterococcal coverage. Will additionally evaluate for alternate sources of fever since abdominal exam is otherwise appearing clinically better. Obtain chest x-ray to evaluate for any pneumonia versus atelectasis, check UA for UTI, check respiratory viral panel as patient has been coughing on and off. Blood culture remains negative to date. If WBC count continues to trend up or patient continues to be febrile with no other potential cause identified, will repeat CT of the abdomen and pelvis to evaluate for development of abscess as a complication of acute diverticulitis. January 27, 2025 Complains of cramping lower abdominal pain today. Passing flatus and stool. Tolerating clear liquid diet. No vomiting. Tmax 100.9 Fahrenheit overnight. WBC remaining at 14,000. CT of the abdomen and pelvis was repeated today to assess for any diverticular abscess given persisting white count and fever. No diverticular abscess is noted. CT shows persisting sigmoid diverticulitis with sigmoid wall enhancement and thickening up to 1.3 cm. There is no free air however there are a few pockets of air that may be contained perforations are within thin-walled diverticula. Early ileus noted. Antibiotics broadened to meropenem and vancomycin yesterday which we will continue for now. Add stool softeners. January 28, 2025. Continues to complain of lower abdominal discomfort. Abdominal appearing to be more distended today. She is passing flatus. X-ray of the abdomen was performed which showed mild to moderate retained feces, states she is still passing very hard pellets of stool. Lactulose added. Tmax 100.7 overnight. White blood cell count continues to be at 14,000. Noted to have increased abdominal distention today. Reviewed surgical note, no active surgical intervention recommended at this time. Will continue to follow closely. Continue empiric meropenem and vancomycin at this time. PDMP PDMP Reviewed: Not Reviewed Attestations Medical Necessity Statement*: Continued admission for IV antibiotics. Persisting sigmoid diverticulitis. Persisting fever and leukocytosis Coding Level of Care Code Acute Code for [facility] Diagnoses Acute diverticulitis K57.92 Hypokalemia E87.6
--- NOTE | 2025-01-28 15:36 | XRR_ITS ---
PROCEDURE INFORMATION: Exam: XR Abdomen Exam date and time: 01/28/2025 5:42 PM Age: 74 years old Clinical indication: Mass, lump, or swelling; Generalized; Additional info: Abdominal distension, acute diverticulitis, assess for ileus TECHNIQUE: Imaging protocol: Radiologic exam of the abdomen. Views: Frontal supine view of the abdomen. 1 View. COMPARISON: CT abdomen pelvis w con* [id number] 01/27/2025 10:34 AM FINDINGS: Gastrointestinal tract: Mild to moderate retained feces. Bones/joints: Mild levoscoliosis. Stable left total hip replacement. Moderate to severe multilevel spine degenerative changes including degenerative disc disease, spondylosis and facet degenerative changes. XR/XR abdomen 1V* [id number] IMPRESSION: Mild to moderate retained feces.
[2025-01-28] MEDS: lactulose oral liq 20 gm/30 mL UDC PO (16:38)
[2025-01-28] MEDS: pantoprazole 40 mg SDV IVP (16:39)
[2025-01-29] VITALS (11 sets, daily range): BP systolic 117–167; BP diastolic 64–85; PULSE 91–136; RESP 13–24; TEMP 36.6–37.1; O2SAT 86–95
[2025-01-29 05:40] LABS: Hematocrit 32.5 % (36-47); Hemoglobin 11.20 g/dL (11.27-16.99); Mean Corpuscular HGB Conc 34.5 g/dL (30-55); Mean Corpuscular Hemoglobin 31.3 pg (27-33); Mean Corpuscular Volume 90.8 fl (85-98); Nucleated Red Blood Cells % 0 %; Platelet Count 262 10^3/cmm (157-399); Red Blood Count 3.58 10^6/uL (3.85-5.65); White Blood Count 13.98 10^3/uL (3.29-11.43)
[2025-01-29] MEDS: vancomycin 500 MG in sodium chloride 0.9% (plus) 100 ML 200 MG IV (06:01)
[2025-01-29] MEDS: meropenem 1,000 mg SDV 1000 MG IVP ×3 (06:01→22:29)
[2025-01-29] MEDS: sennosides-docusate Tablet 1 TAB PO ×2 (06:02→17:22)
[2025-01-29 06:09] LABS: Lactate (Lactic Acid level) 0.5 mmol/L (0.5-2.2)
[2025-01-29 06:12] LABS: Alanine Aminotransferase 19 U/L (0-33); Albumin Level 2.7 g/dL (3.5-5.2); Alkaline Phosphatase 119 U/L (35-105); Anion Gap 14.0 (5-19); Aspartate Amino Transferase 28 U/L (0-32); Blood Urea Nitrogen 4 mg/dL (8-23); Calcium 8.7 mg/dL (8.5-10.5); Carbon Dioxide 21 mmol/L (22-29); Chloride 110 mmol/L (98-107); Creatinine Clr Calc Pharmacy 58.5337; Globulin 2.2 g/dL (1.3-4.6); Glucose 85 mg/dL (65-115); Osmolality Calculated 290 mOsm/kg (285-295); Potassium 3.0 mmol/L (3.5-5.1); Sodium 142 mmol/L (136-145); Total Protein 4.9 g/dL (6.6-8.7)
[2025-01-29] MEDS: potassium chloride oral liq 20 mEq/15 mL UDC 40 MEQ PO (09:51)
--- NOTE | 2025-01-29 11:08 | P.PN_ITS ---
Subjective 2 Subjective: No acute events overnight Tolerating clears Passing gas Mild abdominal pain White count noted Vitals/I&O/Wt Last Vital Signs Temp 98.8 F 01/29/25 07:38 Pulse 99 01/29/25 08:00 Resp 18 01/29/25 08:00 BP 126/74 01/29/25 07:38 Pulse Ox 95 01/29/25 08:00 O2 Del Method Nasal Cannula 01/29/25 08:00 O2 Flow Rate 2 01/29/25 08:00 01/28/25 01/29/25 01/29/25 22:59 06:59 14:59 Intake Total 1340 / 2800 1261.667 / 4061.667 120 / 120 Balance 1340 / 2800 1261.667 / 4061.667 120 / 120 Weight last 48 hrs Weight 133 lb Weight 133 lb 9.6 oz Physical Exam 2 Narrative: Chest: Unlabored breathing room air. No lymphadenopathy. Heart: Regular rate and rhythm. Abdomen: Soft, mildly tender, mildly distended Data 01/29/25 05:10 01/29/25 05:10 Micro: Microbiology 01/23/25 15:44 Blood Culture - Final Blood NO GROWTH AFTER 5 DAYS 01/23/25 15:42 Blood Culture - Final Blood NO GROWTH AFTER 5 DAYS A&P Assessment and plan 1. Acute diverticulitis: Plan: 74-year-old female who presented with acute uncomplicated diverticulitis. Tolerating clears and abdomen is benign. Medicine is concerned about lingering white count as well as persistent abdominal pain which is mild. At this point no indication for surgery. Will continue following. PDMP PDMP Reviewed: Not Reviewed Attestations 2 Medical Necessity Statement*: N/A Coding Level of Care Code 90001 Diagnoses Acute diverticulitis K57.92
--- NOTE | 2025-01-29 11:31 | PC.NURSE ---
pts spouse brought in enbrel pen and pt self administered. pt and spouse educ on why we do not want them to bring in home meds and self administer. educ on risks and benefits of having meds ordered by and given by nurse. dr mccann notified of pts self administer of enbrel.
[2025-01-29] MEDS: lactulose oral liq 20 gm/30 mL UDC PO (14:52)
--- NOTE | 2025-01-29 16:43 | P.PN_ITS ---
Subjective 2 Subjective: Afebrile last 24 hours. Cramping lower abdominal is about the same. States she had very minimal mucoid bowel movement today. She has not noticed any bleeding. Medications: Reviewed: Yes Vitals/I&O/Wt Last Vital Signs Temp 98.5 F 01/29/25 15:11 Pulse 106 H 01/29/25 15:11 Resp 17 01/29/25 15:11 BP 153/76 01/29/25 15:11 Pulse Ox 94 01/29/25 15:11 O2 Del Method Nasal Cannula 01/29/25 15:11 O2 Flow Rate 2 01/29/25 08:00 01/29/25 01/29/25 01/29/25 06:59 14:59 22:59 Intake Total 1261.667 / 4061.667 360 / 360 Balance 1261.667 / 4061.667 360 / 360 Weight last 48 hrs Weight 60.328 kg Weight 60.6 kg Physical Exam 2 Narrative: General: No acute distress, AO x3 HEENT: PERRLA, pupils bilaterally equal and reactive, pallors not present Chest: Normal vesicular breath sounds, no added sounds, equal good air entry bilaterally CVS: S1-S2 regular, no murmurs, no tachycardia, no gallops, no rubs Abdomen: Soft, tender to palpation left lower quadrant. Neuro: No focal deficits, no facial deformity, AO x3, power 5/5 in all limbs Extremities: No edema clubbing or cyanosis Data 01/29/25 05:10 01/29/25 05:10 Micro: Microbiology 01/23/25 15:44 Blood Culture - Final Blood NO GROWTH AFTER 5 DAYS 01/23/25 15:42 Blood Culture - Final Blood NO GROWTH AFTER 5 DAYS A&P Assessment and plan 1. Acute diverticulitis: 2. Hypokalemia: Plan: Acute diverticulitis -Colonic obstruction? -Bowel ischemia?, Lactic acid 1.2 CT/CT abdomen pelvis w con* [id number] IMPRESSION: 1. Findings suggest acute diverticulitis involving the sigmoid colon. There is a colonic stool column transitional point at the distal sigmoid colon. Pneumatosis intestinalis is seen in the sigmoid colon. The diverticulitis complicated by colonic obstruction and bowel ischemia can not be excluded. Surgical consultation is advised. No abscess. 2. Mild calcified atherosclerotic changes are seen throughout the abdominal aorta. 3. Severe lumbar spine degenerative changes. -Plan - Serial abdominal exams - IV Zosyn - IV morphine -continue Zosyn -General Surgery on consult - Full code -Lovenox COPD, -DuoNeb -Monitor respiratory status closely January 25, 2025 Patient currently admitted with acute sigmoid diverticulitis. General surgery following patient. Clinically does not appear to have any signs of colonic obstruction. Lactate level was normal at 1.2 therefore considered less likely to be ischemic insult. Continue bowel rest with n.p.o. diet. Continue IV antibiotic piperacillin/tazobactam. Continue IV fluids sodium chloride at 100 cc an hour. Closely monitor for improvement. Patient is still significantly tender over the left lower quadrant, however states she feels slightly better today after having passed some flatus and a small bowel movement today. January 26, 2025 Patient reports that her abdominal pain is better today. On exam belly is appearing to be less firm in the left lower quadrant, less tender today. She is passing flatus. Still with stool pellets for bowel movements. Tolerating clear liquid. No vomiting. However noted to have a Tmax of 100.1 Fahrenheit overnight with an increase in white count to 14,000 today. Broaden antibiotic coverage from piperacillin/tazobactam to meropenem and vancomycin today for additional ESBL, pseudomonal and enterococcal coverage. Will additionally evaluate for alternate sources of fever since abdominal exam is otherwise appearing clinically better. Obtain chest x-ray to evaluate for any pneumonia versus atelectasis, check UA for UTI, check respiratory viral panel as patient has been coughing on and off. Blood culture remains negative to date. If WBC count continues to trend up or patient continues to be febrile with no other potential cause identified, will repeat CT of the abdomen and pelvis to evaluate for development of abscess as a complication of acute diverticulitis. January 27, 2025 Complains of cramping lower abdominal pain today. Passing flatus and stool. Tolerating clear liquid diet. No vomiting. Tmax 100.9 Fahrenheit overnight. WBC remaining at 14,000. CT of the abdomen and pelvis was repeated today to assess for any diverticular abscess given persisting white count and fever. No diverticular abscess is noted. CT shows persisting sigmoid diverticulitis with sigmoid wall enhancement and thickening up to 1.3 cm. There is no free air however there are a few pockets of air that may be contained perforations are within thin-walled diverticula. Early ileus noted. Antibiotics broadened to meropenem and vancomycin yesterday which we will continue for now. Add stool softeners. January 28, 2025. Continues to complain of lower abdominal discomfort. Abdominal appearing to be more distended today. She is passing flatus. X-ray of the abdomen was performed which showed mild to moderate retained feces, states she is still passing very hard pellets of stool. Lactulose added. Tmax 100.7 overnight. White blood cell count continues to be at 14,000. Noted to have increased abdominal distention today. Reviewed surgical note, no active surgical intervention recommended at this time. Will continue to follow closely. Continue empiric meropenem and vancomycin at this time. January 29, 2025 Having small mucoid bowel movements. Minimal amount per patient. Passing flatus. Abdomen appears to be less distended compared to yesterday. Continue lactulose today. Trial of glycerin suppository. Today appears to be fever free last 24 hours. WBC count at 13.9. Clinically still complaining of lower abdominal discomfort. Will closely monitor her fever curve and leukocytosis over the next 24 hours. Currently continues to be on a clear liquid diet. Not cleared to advance just yet. Start PPN today. Hypokalemia repleted PDMP PDMP Reviewed: Not Reviewed Attestations 2 Medical Necessity Statement*: Persisting leukocytosis, currently afebrile last 24 hours. Awaiting improvement in bowel function. Currently continuing to be on a clear liquid diet Coding Level of Care Code Acute Code for [facility] Fwd Diagnoses Acute diverticulitis K57.92 Hypokalemia E87.6
[2025-01-29] MEDS: pantoprazole 40 mg SDV IVP (18:41)
[2025-01-29] MEDS: AA-Dex 4.25%-5% w/Lytes 1,000 ML 21 ML IV (19:21)
[2025-01-30] VITALS (7 sets, daily range): BP systolic 99–150; BP diastolic 52–76; PULSE 88–180; RESP 15–22; TEMP 36.8–37.1; O2SAT 87–94
[2025-01-30 05:21] LABS: Hematocrit 30.5 % (36-47); Hemoglobin 10.50 g/dL (11.27-16.99); Mean Corpuscular HGB Conc 34.4 g/dL (30-55); Mean Corpuscular Hemoglobin 31.1 pg (27-33); Mean Corpuscular Volume 90.2 fl (85-98); Platelet Count 282 10^3/cmm (157-399); Red Blood Count 3.38 10^6/uL (3.85-5.65); White Blood Count 17.69 10^3/uL (3.29-11.43)
[2025-01-30 05:51] LABS: Alanine Aminotransferase 18 U/L (0-33); Albumin Level 2.4 g/dL (3.5-5.2); Alkaline Phosphatase 171 U/L (35-105); Anion Gap 16.0 (5-19); Aspartate Amino Transferase 24 U/L (0-32); Blood Urea Nitrogen 3 mg/dL (8-23); Calcium 8.4 mg/dL (8.5-10.5); Carbon Dioxide 22 mmol/L (22-29); Chloride 109 mmol/L (98-107); Creatinine Clr Calc Pharmacy 58.5337; Globulin 2.4 g/dL (1.3-4.6); Glucose 111 mg/dL (65-115); Osmolality Calculated 295 mOsm/kg (285-295); Potassium 3.0 mmol/L (3.5-5.1); Sodium 144 mmol/L (136-145); Total Protein 4.8 g/dL (6.6-8.7)
[2025-01-30] MEDS: meropenem 1,000 mg SDV 1000 MG IVP ×2 (06:13→14:33)
[2025-01-30 06:21] LABS: Slide Review Slide Review Perform; Total Cells Counted 100 (0-100)
[2025-01-30 06:22] LABS: Absolute Segmented Neutrophil 13.8 10/cmm (1.6-7.1); Atypical Lymphs 2.0 % (0-5); Band Neutrophils Absolute 1.1 10^3/cmm (0.0-1.2)
[2025-01-30] MEDS: sennosides-docusate Tablet 1 TAB PO (06:37)
--- NOTE | 2025-01-30 09:39 | XRR_ITS ---
PROCEDURE INFORMATION: Exam: XR Chest 1 View And XR Abdomen 1 View Exam date and time: 01/30/2025 9:44 AM Age: 74 years old Clinical indication: Other: Assess for distension; Shortness of breath; Additional info: Pulm edema TECHNIQUE: Imaging protocol: Radiologic exam of the chest. Radiologic exam of the abdomen. COMPARISON: CR XR chest 1V portable [id number] 01/26/2025 11:36 AM FINDINGS: Lungs: Redemonstrated opacity at the left lung base obscuring the left costophrenic angle. No large right pleural effusion. No sizable pneumothorax. Heart/Mediastinum: The cardiomediastinal silhouette is stable. Gastrointestinal tract: Normal nonobstructed bowel-gas pattern. Moderate constipation. Intraperitoneal space: Normal. No free air. Bones/joints: Degenerative changes of the thoracolumbar spine. Status post left hip arthroplasty. Vasculature: Calcifications of the aortic arch. Soft tissues: Normal. XR/XR chest 1V portable [id number] IMPRESSION: 1. No significant change in left basilar opacity which may reflect atelectasis, effusion or pneumonia. 2. Normal nonobstructed bowel-gas pattern. 3. Moderate constipation.
--- NOTE | 2025-01-30 09:49 | XRR_ITS ---
PROCEDURE INFORMATION: Exam: XR Chest 1 View And XR Abdomen 1 View Exam date and time: 01/30/2025 9:44 AM Age: 74 years old Clinical indication: Other: Assess for distension; Shortness of breath; Additional info: Pulm edema TECHNIQUE: Imaging protocol: Radiologic exam of the chest. Radiologic exam of the abdomen. COMPARISON: CR XR chest 1V portable [id number] 01/26/2025 11:36 AM FINDINGS: Lungs: Redemonstrated opacity at the left lung base obscuring the left costophrenic angle. No large right pleural effusion. No sizable pneumothorax. Heart/Mediastinum: The cardiomediastinal silhouette is stable. Gastrointestinal tract: Normal nonobstructed bowel-gas pattern. Moderate constipation. Intraperitoneal space: Normal. No free air. Bones/joints: Degenerative changes of the thoracolumbar spine. Status post left hip arthroplasty. Vasculature: Calcifications of the aortic arch. Soft tissues: Normal. XR/XR abdomen 1V* [id number] IMPRESSION: 1. No significant change in left basilar opacity which may reflect atelectasis, effusion or pneumonia. 2. Normal nonobstructed bowel-gas pattern. 3. Moderate constipation.
--- NOTE | 2025-01-30 10:21 | ECG_ITS ---
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 Measurements Intervals [place] Rate: 162 P: 0 NE: 0 QRS: 62 QRSD: 77 T: 0 QT: 207 QTc: 340 Interpretive Statements ATRIAL FLUTTER/TACHYCARDIA WITH RAPID VENTRICULAR RESPONSE SEPTAL MYOCARDIAL INFARCTION , OF INDETERMINATE AGE [40+ ms Q WAVE IN V1/V2] CRITICAL TEST RESULT No previous ECG available for comparison Electronically Signed On 01-30-2025 12:56:20 CDT by Rod Newton M.D. [email or web address]
[2025-01-30] MEDS: metoprolol tartrate 1 mg/1 mL SDV 5 mL 2.5 MG IVP ×2 (10:30→10:56)
[2025-01-30] MEDS: FUROsemide 10 mg/mL SDV 2mL 20 MG IVP (10:30)
[2025-01-30 11:07] LABS: Add Urine Microscopic? YES; Glucose Urine UA Negative (Normal); Nitrate Urine Negative (Negative); Specific Gravity, Urine 1.008 (1.005-1.030)
--- NOTE | 2025-01-30 11:13 | ECG_ITS ---
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 Measurements Intervals [place] Rate: 91 P: 69 MN: 119 QRS: 64 QRSD: 76 T: 263 QT: 290 QTc: 358 Interpretive Statements SINUS RHYTHM WITH SHORT MN INTERVAL WITH OCCASIONAL SUPRAVENTRICULAR PREMATURE COMPLEXES NONSPECIFIC T-WAVE ABNORMALITY Compared to ECG 01/30/2025 10:21:35 Short MN interval now present T-wave abnormality now present Atrial flutter no longer present Myocardial infarct finding no longer present Electronically Signed On 01-30-2025 12:57:40 CDT by Rod Newton M.D. [email or web address] [id number]
--- NOTE | 2025-01-30 11:39 | P.PN_ITS ---
Subjective 2 Subjective: Abdomen remains benign. Mild left lower quadrant pain. Not peritonitic. Noted white count up Afebrile. Hemodynamically normal. Tolerating clears. Passing gas Vitals/I&O/Wt Last Vital Signs Temp 98.7 F 01/30/25 10:28 Pulse 88 01/30/25 10:49 Resp 17 01/30/25 10:49 BP 100/65 01/30/25 10:49 Pulse Ox 94 01/30/25 10:49 O2 Del Method Nasal Cannula 01/30/25 10:49 O2 Flow Rate 2 01/30/25 10:49 01/29/25 01/30/25 01/30/25 22:59 06:59 14:59 Intake Total 750 / 1110 445.3 / 1555.3 Output Total 300 / 300 1000 / 1000 Balance 450 / 810 445.3 / 1255.3 -1000 / -1000 Weight last 48 hrs Weight 133 lb Weight 133 lb Physical Exam 2 Narrative: Chest: Unlabored breathing room air. No lymphadenopathy. Heart: Regular rate and rhythm. Abdomen: Soft, mildly tender left lower quadrant, mildly distended. Non peritonitic Urinary Catheter Management: Sotomayor: Cath Placed During This Visit: yes Urinary Catheter Date of Insertion: 01/30/25 Urinary Catheter Time of Insertion: 10:48 Data 01/30/25 04:28 01/30/25 04:28 A&P Assessment and plan 1. Acute diverticulitis: Plan: 74-year-old female who presented with acute diverticulitis. Hospitalist concerned about rising white count. I have reviewed all her imaging studies once more. This is a case of noncomplicated acute diverticulitis. KUB today was unremarkable. She might be developing an abscess given her rising leukocytosis. At this point her abdomen remains benign. She is tolerating clears. She is passing gas. At this point no indication for surgery, however, patient wishes to be transferred to higher level of care for a second opinion from a colorectal surgeon. She is awaiting bed availability in [place]. Will continue following and plan for CT scan on Saturday if she has not been transferred. Had an extensive discussion with patient. Had also extensive discussion with hospitalist. PDMP PDMP Reviewed: Not Reviewed Attestations 2 Medical Necessity Statement*: NA Coding Level of Care Code 80265 Diagnoses Acute diverticulitis K57.92
--- NOTE | 2025-01-30 14:21 | P.TS_ITS ---
Transfer Summary Providers Date of Admission: 01/23/25 15:14 Date of Discharge/Transfer: 01/30/25 Attending Provider at Admission: Camilo Loja MD Attending Provider at Transfer: Meron Matson MD Primary Care Provider: NEVA Haas Transfer Plans: Anticipated date of transfer: 01/30/25 . Receiving Facility: [facility] . Receiving Provider: Hospitalist . Diagnoses at Discharge Discharge Diagnosis 1. Acute diverticulitis: Reason for Visit Reason for Visit Lower ABD pain hasn't had a BM in a week Hospital Course Hospital Course 74 year old female with a past medical history of COPD, hyperlipidemia, prior history of smoking, genital herpes, anxiety, who presented to [facility] on 01/[address] of the abdomen and pelvis was performed which showed acute diverticulitis involving the sigmoid colon. Pneumatosis intestinalis was seen in the sigmoid colon. No abscess was encountered. General surgery service has been consulted and following the patient along. Patient was initially started on treatment with piperacillin/tazobactam on which she remained between 01/23 to 01/26/2025. She continued to have daily fever up to 100.9 Fahrenheit. Persistent leukocytosis between 13-14,000 without improvement. Antibiotic coverage was broadened to meropenem and vancomycin on the evening of 01/26/2025. She continues to have abdominal pain in the left lower quadrant. CT of the abdomen and pelvis was repeated on 01/27/2025 to assess for any interval change. There was noted to be no improvement in the sigmoid diverticulitis compared to prior study on the . Sigmoid wall enhancement with marked thickening up to 1.3 cm was noted. There was pneumatosis suspicious for ischemia, however her lactate has remained normal during the course of this admission. No free air was encountered however few pockets of air were noticed which were thought to be possibly small contained perforations or thin-walled diverticuli. There was a small amount of ascites in the abdomen and pelvis with mesenteric edema. In spite of remaining on broad-spectrum coverage with meropenem and vancomycin, patient continues to have increasing leukocytosis, today this is at 17,000. She is additionally continuing to complain of abdominal pain particularly in the left lower quadrant. UTI was ruled out, chest x-ray did not show any consolidation. Blood cultures have remained negative to date. No other obvious source of increasing leukocytosis has been found other than the diverticulitis. Patient is passing flatus, however has been severely constipated. Previously she was passing a few pellets of stool. Yesterday she passed mucoid bowel movement and today has noticed a few specks of blood in it. Hemoglobin today is at 10.5, was 12.4 previously. Patient has remained on a clear diet during the course of this admission however has not had significant oral intake. She was started on PPN on 01/29/2025. Given worsening leukocytosis and no significant improvement, patient will need to continue IV antibiotics and need to be closely followed by surgery service should she progress to requiring surgical intervention. She would like to be transferred to a higher hospital with availability of colorectal surgery service to follow along. Her other comorbidities include COPD. She has been on nebulization with DuoNeb and budesonide without any noted exacerbation. This morning her O2 sat was noted to be 87% on room air. She has interval development of lower extremity edema and crackles on lung exam. Chest x-ray shows a small left pleural effusion. Likely related to aggressive IV hydration that she has received during this admission. Rate of PPN was reduced to 42 mL/h. She received Lasix 20 mg IV, Sotomayor catheter was placed for accurate output and so far she has had 1300 cc after being given the Lasix. This morning patient additionally had an episode of A-fib with RVR which improved after being administered 5 mg of IV metoprolol. She does not have any past history of atrial fibrillation. Likely this was related to fluid overload, hypokalemia at 3.0 and ongoing infection. After the administration of metoprolol patient has returned to sinus rhythm at 90 bpm. P.o. metoprolol 25 twice daily has been added to her current treatment regimen. She is being transferred today to [facility] Physical Exam Narrative: General: No acute distress, AO x3 HEENT: PERRLA, pupils bilaterally equal and reactive, pallors not present Chest: Crackles to auscultation bilateral lung bases CVS: S1-S2 regular, no murmurs, no tachycardia, no gallops, no rubs Abdomen: Soft, nontender, no organomegaly, bowel sounds present Neuro: No focal deficits, no facial deformity, AO x3, power 5/5 in all limbs Extremities: Pitting lower extremity edema bilaterally Urinary Catheter Management: Sotomayor: Cath Placed During This Visit: yes Urinary Catheter Date of Insertion: 01/30/25 Urinary Catheter Time of Insertion: 10:48 TS Data Studies Completed and Pending Pending at discharge Category Date Time Status CMP [Comprehensive Metabolic Panel] AM LABS Lab 01/31/25 04:00 Ordered Complete Blood Count w/Auto AM LABS Lab 01/31/25 04:00 Ordered Lactate (Lactic Acid level) AM LABS Lab 01/31/25 04:00 Ordered Completed Studies During Hospitalization Category Date Time Status CT abdomen pelvis w con* [id number] Routine Cat Scan 01/27/25 08:[address] abdomen pelvis w con* [id number] Stat Cat Scan 01/23/25 13:45 Completed CXRP [XR chest 1V portable [id number]] Routine Exams 01/26/25 10:42 Completed CXRP [XR chest 1V portable [id number]] Stat Exams 01/30/25 09:39 Completed XR KUB portable [id number] Stat Exams 01/23/25 11:52 Completed XR abdomen 1V* [id number] Routine Exams 01/28/25 15:36 Completed XR abdomen 1V* [id number] Routine Exams 01/30/25 09:49 Completed Laboratory Last Values WBC 17.69 10^3/uL (3.29-11.43) H 01/30/25 04:28 Corrected WBC Cancelled 01/23/25 11:55 RBC 3.38 10^6/uL (3.85-5.65) L 01/30/25 04:28 Hgb 10.50 g/dL (11.27-16.99) L 01/30/25 04:28 Hct 30.5 % (36-47) L 01/30/25 04:28 MCV 90.2 fl (85-98) 01/30/25 04:28 MCH 31.1 pg (27-33) 01/30/25 04:28 MCHC 34.4 g/dL (30-55) 01/30/25 04:28 RDW 14.1 % (12.1-15.1) 01/30/25 04:28 Plt Count 282 10^3/cmm (157-399) 01/30/25 04:28 MPV 11.1 fL (7.4-10.4) H 01/30/25 04:28 Gran % Cancelled 01/23/25 11:55 Neut % (Auto) 82.5 % 01/29/25 05:10 Lymph % (Auto) Not Reportable 01/30/25 04:28 [place] % (Auto) Not Reportable 01/30/25 04:28 Eos % (Auto) 1.4 % 01/29/25 05:10 Baso % (Auto) 0.4 % 01/29/25 05:10 Neut # (Auto) 11.55 10^3/uL (1.8-7.7) H 01/29/25 05:10 Lymph # (Auto) Not Reportable 01/30/25 04:28 [place] # (Auto) Not Reportable 01/30/25 04:28 Eos # (Auto) 0.2 10^3/uL (0.0-0.8) 01/29/25 05:10 Baso # (Auto) 0.1 10^3/uL (0.0-0.1) 01/29/25 05:10 Absolute Gran (auto) Cancelled 01/23/25 11:55 Nucleated RBC % (auto) 0 % 01/29/25 05:10 Total Counted 100 (0-100) 01/30/25 04:28 Atypical Lymphs % 2.0 % (0-5) 01/30/25 04:28 Absolute Neutrophils 14.9 10^3/cmm (1.4-6.5) H 01/30/25 04:28 Segmented Neutrophils 78 % 01/30/25 04:28 Band Neutrophils 6.0 % 01/30/25 04:28 Absolute Lymphocytes 0.7 10^3/cmm (1.2-3.4) L 01/30/25 04:28 Lymphocytes (Manual) 2 % 01/30/25 04:28 Monocytes (Manual) 9.0 % 01/30/25 04:28 Absolute Monocytes 1.6 10^3/cmm (0.1-0.6) H 01/30/25 04:28 Eosinophils (Manual) 1 % 01/30/25 04:28 Absolute Eosinophils 0.2 10^3/cmm (0.0-0.7) 01/30/25 04:28 Basophils (Manual) 0.0 % 01/30/25 04:28 Absolute Basophils 0.0 10^3/cmm (0.0-0.2) 01/30/25 04:28 Metamyelocytes 1.0 % 01/30/25 04:28 Nucleated RBCs 1.0 /100WBC (0-1) 01/30/25 04:28 Nucleated RBCs # 0.0 /100WBC 01/29/25 05:10 Platelet Estimate Normal (Normal) 01/30/25 04:28 PT 15.40 SECONDS (12.1-14.9) H 01/24/25 03:03 INR 1.14 (0.8-1.2) 01/24/25 03:03 Sodium 144 mmol/L (136-145) 01/30/25 04:28 Potassium 3.0 mmol/L (3.5-5.1) L 01/30/25 04:28 Chloride 109 mmol/L (98-107) H 01/30/25 04:28 Carbon Dioxide 22 mmol/L (22-29) 01/30/25 04:28 Anion Gap 16.0 (5-19) 01/30/25 04:28 BUN 3 mg/dL (8-23) L 01/30/25 04:28 Creatinine 0.5 mg/dL (0.5-0.9) 01/30/25 04:28 GFR Calculation Not Reportable 01/30/25 04:28 Glucose 111 mg/dL (65-115) 01/30/25 04:28 POC Glucose 119 mg/dL (70-110) H 01/30/25 10:36 Calculated Osmolality 295 mOsm/kg (285-295) 01/30/25 04:28 Lactic Acid 1.2 mmol/L (0.5-2.2) 01/23/25 12:24 Lactate 0.5 mmol/L (0.5-2.2) 01/29/25 05:10 Calcium 8.4 mg/dL (8.5-10.5) L 01/30/25 04:28 Phosphorus 1.4 mg/dL (2.5-4.5) L 01/26/25 05:05 Magnesium 1.9 mg/dL (1.7-2.3) 01/26/25 05:05 Total Bilirubin 0.3 mg/dL (0.15-1.2) 01/30/25 04:28 AST 24 U/L (0-32) 01/30/25 04:28 ALT 18 U/L (0-33) 01/30/25 04:28 Alkaline Phosphatase 171 U/L (35-105) H 01/30/25 04:28 Total Protein 4.8 g/dL (6.6-8.7) L 01/30/25 04:28 Albumin 2.4 g/dL (3.5-5.2) L 01/30/25 04:28 Globulin 2.4 g/dL (1.3-4.6) 01/30/25 04:28 Lipase 20 U/L (13-60) 01/23/25 12:24 TSH 0.77 uIU/mL (0.27-4.20) 01/23/25 18:30 Urine Color Yellow (Yellow) 01/30/25 10:50 Urine Appearance Clear (CLEAR) 01/30/25 10:50 Urine pH 6.0 (5-7) 01/30/25 10:50 Ur Specific [place] 1.008 (1.005-1.030) 01/30/25 10:50 Urine Protein 1+ (Negative) A 01/30/25 10:50 Urine Glucose (UA) Negative (Normal) 01/30/25 10:50 Urine Ketones 2+ (Negative) H 01/30/25 10:50 Urine Blood Trace (Negative) A 01/30/25 10:50 Urine Nitrate Negative (Negative) 01/30/25 10:50 Urine Bilirubin Negative (Negative) 01/30/25 10:50 Urine Urobilinogen 0.2 mg/dL (Negative) 01/30/25 10:50 Ur Leukocyte Esterase Negative (Negative) 01/30/25 10:50 Urine RBC 0-2 /hpf (0-2) 01/30/25 10:50 Urine WBC 0-5 /hpf (0-5) 01/30/25 10:50 Ur Squamous Epith Cells 0-5 /hpf (0-5) 01/30/25 10:50 Amorphous Sediment Not Reportable 01/30/25 10:50 Urine Bacteria None seen /hpf (NONE) 01/30/25 10:50 Hyaline Casts 2.05 /lpf 01/30/25 10:50 Urine Mucus None /hpf 01/26/25 11:24 Vancomycin Trough 7.4 ug/mL (10-15) L 01/30/25 13:54 Adenovirus (PCR) Not detected (NOT DETECT) 01/26/25 10:50 C. pneumoniae DNA (PCR) Not detected (NOT DETECT) 01/26/25 10:50 Coronavirus 229E (PCR) Not detected (NOT DETECT) 01/26/25 10:50 Human Metapneumovir PCR Not detected (NOT DETECT) 01/26/25 10:50 Influenza A (H1) PCR Not detected (NOT DETECT) 01/26/25 10:50 Influ A (H1/09) PCR Not detected (NOT DETECT) 01/26/25 10:50 Influenza A (H3) PCR Not detected (NOT DETECT) 01/26/25 10:50 Influenza Type A (PCR) Not detected (NOT DETECT) 01/26/25 10:50 Influenza Type B (PCR) Not detected (NOT DETECT) 01/26/25 10:50 M. pneumoniae (PCR) Not detected (NOT DETECT) 01/26/25 10:50 Parainfluenza 1 (PCR) Not detected (NOT DETECT) 01/26/25 10:50 Parainfluenza 2 (PCR) Not detected (NOT DETECT) 01/26/25 10:50 Parainfluenza 3 (PCR) Not detected (NOT DETECT) 01/26/25 10:50 Parainfluenza 4 (PCR) Not detected (NOT DETECT) 01/26/25 10:50 RSV Type A (PCR) Not detected (NOT DETECT) 01/26/25 10:50 RSV Type B (PCR) Not detected (NOT DETECT) 01/26/25 10:50 Entero/Rhino (PCR) Not detected (NOT DETECT) 01/26/25 10:50 SARS-CoV-2 (PCR) Not detected (NOT DETECT) 01/26/25 10:50 Radiology Impressions KUB X-Ray 01/23/25 11:52 IMPRESSION: Bowel-gas pattern is nonspecific. Abdomen/Pelvis CT 01/27/25 08:39 IMPRESSION: 1. New small bilateral pleural effusions. 2. New ascites in the abdomen and pelvis along with mesenteric edema. 3. No improvement in the sigmoid diverticulitis since the prior study. Sigmoid wall enhancement with marked thickening up to 1.3 cm. There is pneumatosis suspicious for ischemia. Although there is no free air there are a few pockets of air that may be contained perforations or within thin-walled diverticula. 4. No diverticular abscess identified. 5. Suspect peritonitis. 6. Increasing fluid in the distal small bowel may be reactive or early ileus. Chest X-Ray 01/30/25 09:39 IMPRESSION: 1. No significant change in left basilar opacity which may reflect atelectasis, effusion or pneumonia. 2. Normal nonobstructed bowel-gas pattern. 3. Moderate constipation. Abdomen X-Ray 01/30/25 09:49 IMPRESSION: 1. No significant change in left basilar opacity which may reflect atelectasis, effusion or pneumonia. 2. Normal nonobstructed bowel-gas pattern. 3. Moderate constipation. Recent Clincial Data Last Vital Signs Temp 98.7 F 01/30/25 10:28 Pulse 102 H 01/30/25 13:53 Resp 18 01/30/25 13:53 BP 100/65 01/30/25 10:49 Pulse Ox 92 01/30/25 13:53 O2 Del Method Nasal Cannula 01/30/25 13:53 O2 Flow Rate 2 01/30/25 13:53 Vital Signs Temp Pulse Resp BP Pulse Ox O2 Del Method O2 Flow Rate 01/30/25 13:53 102 H 18 92 Nasal Cannula 2 01/30/25 10:49 88 17 100/65 94 Nasal Cannula 2 01/30/25 10:49 98 16 99/52 93 Nasal Cannula 2 01/30/25 10:28 98.7 F 180 H 18 150/75 93 Nasal Cannula 01/30/25 07:48 97 22 H 87 L Room Air 01/30/25 07:34 98.2 F 96 15 144/76 92 Nasal Cannula 01/30/25 05:00 98.4 F 96 17 122/66 94 Intake & Output/Weight 01/28/25 01/29/25 01/30/25 01/31/25 06:59 06:59 06:59 06:59 Intake Total 2630.000 / 2630.000 4061.667 / 4061.667 1555.3 / 1555.3 360 / 360 Output Total 300 / 300 300 / 300 1000 / 1000 Balance 2330.000 / 2330.000 4061.667 / 4061.667 1255.3 / 1255.3 -640 / -640 Weight 60.6 kg 60.328 kg 60.328 kg Vitals Last Vital Signs Temp 98.7 F 01/30/25 10:28 Pulse 102 H 01/30/25 13:53 Resp 18 01/30/25 13:53 BP 100/65 01/30/25 10:49 Pulse Ox 92 01/30/25 13:53 O2 Del Method Nasal Cannula 01/30/25 13:53 O2 Flow Rate 2 01/30/25 13:53 TS Medications Medications Acetaminophen (Acetaminophen 325 Mg Tablet) 650 mg PO Q6H PRN PRN Reason: Mild/Mod Pain Or Temp >/= 101 Last Admin: 01/26/25 21:50 Dose: 650 mg Acyclovir (Acyclovir 400 Mg Tablet) 200 mg PO DAILY [facility] Last Admin: 01/30/25 08:34 Dose: 200 mg Budesonide (Budesonide 0.5 Mg/2 Ml Neb) 0.5 mg INHALATION BID.RESPIRATORY LATISHA Doxepin HCl (Doxepin 50 Mg Capsule) 100 mg PO BEDTIME LATISHA Last Admin: 01/29/25 22:28 Dose: 100 mg Enoxaparin Sodium (Enoxaparin 40 Mg/0.4 Ml Syringe) 40 mg SUBCUT Q24H LATISHA Last Admin: 01/29/25 17:22 Dose: Not Given Vancomycin HCl 750 mg/ Sodium (Chloride) 250 mls @ 250 mls/hr IV Q12H [facility] Last Infusion: 01/30/25 04:03 Dose: Infused Amino Acids/Electrolytes/Dextrose (Clinimix E 4.25%-5%) 1,000 mls @ 42 mls/hr IV .[id number] LATISHA On Hold: 01/30/25 10:43 Last Infusion: 01/30/25 04:39 Dose: 42 mls/hr Ibuprofen (Ibuprofen 600 Mg Tablet) 600 mg PO Q8H PRN PRN Reason: pain or fever Lactulose (Lactulose Oral Liq 20 Gm/30 Ml Udc) 20 gm PO Q12H [facility] Last Admin: 01/30/25 03:02 Dose: Not Given Levalbuterol HCl (Levalbuterol 1.25 Mg/3 Ml Neb) 1.25 mg INHALATION Q6H.RESP LATISHA Last Admin: 01/30/25 13:49 Dose: 1.25 mg Meropenem (Meropenem 1,000 Mg Sdv) 1,000 mg IVP Q8H [facility]IS[facility] Last Admin: 01/30/25 06:13 Dose: 1,000 mg Metoprolol Tartrate (Metoprolol Tartrate 25 Mg Tablet) 25 mg PO BID@0900,2100 [facility] Naloxone HCl (Naloxone 0.4 Mg/Ml Sdv) 0.1 mg IVP Q2M PRN PRN Reason: OPIATERV Non-Formulary Medication (Revefenacin [Yupelri]) 175 mcg INHALATION DAILY [facility] Last Admin: 01/30/25 08:35 Dose: 175 mcg Ondansetron HCl (Ondansetron 2 Mg/Ml Sdv 2 Ml) 4 mg IVP Q8H PRN PRN Reason: vomiting, or N/V if npo Pantoprazole Sodium (Pantoprazole 40 Mg Sdv) 40 mg IVP Q24H [facility] Last Admin: 01/29/25 18:41 Dose: 40 mg Paroxetine HCl (Paroxetine 20 Mg Tablet) 20 mg PO DAILY [facility] Last Admin: 01/30/25 08:34 Dose: 20 mg Senna/Docusate Sodium (Sennosides-Docusate Tablet) 1 tab PO BID@0500,1700 [facility] Last Admin: 01/30/25 06:37 Dose: 1 tab Discontinued Medications Albuterol/Ipratropium (Ipratropium-Albuterol 3 Ml Neb) 3 ml INHALATION QID.RESPIRATORY [facility] Last Admin: 01/25/25 15:46 Dose: 3 ml Albuterol/Ipratropium (Ipratropium-Albuterol 3 Ml Neb) 3 ml INHALATION BID [facility] Last Admin: 01/26/25 10:05 Dose: 3 ml Albuterol/Ipratropium (Ipratropium-Albuterol 3 Ml Neb) 3 ml INHALATION BID.RESPIRATORY [facility] Last Admin: 01/30/25 07:43 Dose: 3 ml Docusate Sodium (Docusate Sodium 100 Mg Capsule) 100 mg PO DAILY [facility] Last Admin: 01/27/25 08:08 Dose: 100 mg Furosemide (Furosemide 10 Mg/Ml Sdv 2ml) 20 mg IVP ONCE ONE Stop: 01/30/25 10:24 Last Admin: 01/30/25 10:30 Dose: 20 mg Glycerin (Glycerin Adult Supp) 1 each IA NOW ONE Stop: 01/29/25 10:31 Last Admin: 01/29/25 11:27 Dose: 1 each Piperacillin Sod/Tazobactam (Sod 3.375 gm/ Sodium Chloride) 50 mls @ 100 mls/hr IV ONCE ONE; Protocol Stop: 01/23/25 15:37 Last Infusion: 01/23/25 18:05 Dose: Infused Sodium Chloride (Sodium Chloride 0.9%) 1,000 mls @ 100 mls/hr IV .Q10H [facility] Last Admin: 01/29/25 06:22 Dose: 100 mls/hr Piperacillin Sod/Tazobactam (Sod / Sodium Chloride) 50 mls @ 0 mls/hr [id number] CONT LATISHA; Protocol Piperacillin Sod/Tazobactam (Sod 3.375 gm/ Sodium Chloride) 50 mls @ 12.5 mls/hr IV Q8H [facility] Last Infusion: 01/26/25 11:52 Dose: Infused Meropenem 1,000 mg/ Sodium (Chloride) 50 mls @ 100 mls/hr IV Q8H [facility]; Protocol Last Admin: 01/26/25 13:14 Dose: Not Given Vancomycin HCl / Sodium (Chloride) 250 mls @ 0 mls/hr [id number] PROTOCOL LATISHA; Protocol Vancomycin HCl 500 mg/ Sodium (Chloride) 100 mls @ 200 mls/hr IV Q12H [facility] Last Infusion: 01/28/25 13:05 Dose: Infused Vancomycin HCl 500 mg/ Sodium (Chloride) 100 mls @ 200 mls/hr IV Q8H [facility] Last Infusion: 01/29/25 06:48 Dose: Infused Ibuprofen (Ibuprofen 600 Mg Tablet) 600 mg PO Q8H [facility] Last Admin: 01/30/25 08:34 Dose: 600 mg Iohexol (Iohexol 350 Mg/Ml 500 Ml Btl (Per Ml)) 0 ml IV ONCE ONE Stop: 01/23/25 14:33 Last Admin: 01/23/25 14:33 Dose: 80 ml Iohexol (Iohexol 350 Mg/Ml 500 Ml Btl (Per Ml)) 0 ml IV ONCE ONE Stop: 01/27/25 10:43 Last Admin: 01/27/25 10:42 Dose: 100 ml Ipratropium [place] (Ipratropium 0.5 Mg/2.5 Ml Neb) 0.5 mg INHALATION QID.RESPIRATORY [facility]ISHA Magnesium Hydroxide (Magnesium Hydroxide 30 Ml Udc) 15 ml PO ONCE ONE Stop: 01/28/25 23:06 Last Admin: 01/29/25 00:23 Dose: 15 ml Metoprolol Tartrate (Metoprolol Tartrate 1 Mg/1 Ml Sdv 5 Ml) 2.5 mg IVP ONCE ONE Stop: 01/30/25 10:23 Last Admin: 01/30/25 10:30 Dose: 2.5 mg Metoprolol Tartrate (Metoprolol Tartrate 1 Mg/1 Ml Sdv 5 Ml) 2.5 mg IVP ONCE ONE Stop: 01/30/25 10:43 Last Admin: 01/30/25 10:56 Dose: 2.5 mg Metoprolol Tartrate (Metoprolol Tartrate 25 Mg Tablet) 12.5 mg PO ONCE ONE Stop: 01/30/25 10:42 Last Admin: 01/30/25 11:37 Dose: 12.5 mg Morphine Sulfate (Morphine 4 Mg/Ml Sdv 1 Ml) 2 mg IVP Q4H PRN PRN Reason: SEVERE PAIN Non-Formulary Medication (Revefenacin [Yupelri]) 175 mcg INHALATION DAILY [facility] Last Admin: 01/25/25 19:13 Dose: Not Given Non-Formulary Medication (Non-Formulary Medication) 0 each XX UNK [facility] Ondansetron HCl (Ondansetron 2 Mg/Ml Sdv 2 Ml) 4 mg IVP Q6H PRN PRN Reason: NAUSEA AND VOMITING Potassium Chloride (Potassium Chloride Er 20 Meq Tablet) 40 meq PO ONCE ONE Stop: 01/27/25 11:27 Last Admin: 01/27/25 12:40 Dose: 40 meq Potassium Chloride (Potassium Chloride Er 20 Meq Tablet) 20 meq PO ONCE ONE Stop: 01/27/25 11:27 Last Admin: 01/27/25 12:40 Dose: 20 meq Potassium Chloride (Potassium Chloride Oral Liq 20 Meq/15 Ml Udc) 40 meq PO ONCE ONE Stop: 01/29/25 09:08 Last Admin: 01/29/25 09:51 Dose: 40 meq Senna/Docusate Sodium (Sennosides-Docusate Tablet) 1 tab PO BID [facility] Last Admin: 01/27/25 17:18 Dose: 1 tab Allergies atorvastatin (From Lipitor) Adverse Reaction (Verified 12/07/24 10:20) Myalgia Home Medications apple cider vinegar 600 mg capsule 600 mg PO DAILY 11/14/21 [History Confirmed 01/23/25] calcium carbonate 500 mg PO DAILY 11/14/21 [History Confirmed 01/23/25] cholecalciferol (vitamin D3) 10 mcg (400 unit) capsule 10 mcg PO DAILY 11/14/21 [History Confirmed 01/23/25] multivitamin with minerals (Hair,Skin and Nails tablet) 1 tab PO DAILY 11/14/21 [History Confirmed 01/23/25] nebulizers #1 ea 11/11/23 [Rx Confirmed 01/23/25] acyclovir 200 mg capsule 200 mg PO DAILY #90 caps 12/07/24 [Rx Confirmed 01/23/25] albuterol sulfate 90 mcg/actuation aerosol inhaler (Ventolin HFA) 2 puff inhalation QID PRN shortness of breath or wheezing #6.7 grams 12/07/24 [Rx Confirmed 01/23/25] budesonide 0.5 mg/2 mL suspension for nebulization (Pulmicort) 0.5 mg (2 mL) inhalation BID #120 mL 12/07/24 [Rx Confirmed 01/23/25] docusate sodium 100 mg capsule (Colace) 100 mg PO DAILY #90 caps 12/07/24 [Rx Confirmed 01/23/25] doxepin 100 mg capsule 100 mg PO .at bedtime #90 caps 12/07/24 [Rx Confirmed 01/23/25] paroxetine HCl 20 mg tablet (Paxil) 20 mg PO DAILY #90 tabs 12/07/24 [Rx Confirmed 01/23/25] revefenacin 175 mcg/3 mL solution for nebulization (Yupelri) 175 mcg (3 mL) inhalation DAILY #90 mL 12/07/24 [Rx Confirmed 01/23/25] coenzyme Q10 100 mg capsule (CoQ-10) 100 mg PO DAILY 01/23/25 [History Confirmed 01/23/25] garlic 300 mg capsule 300 mg PO DAILY 01/23/25 [History Confirmed 01/23/25] lactobacillus comb no.10 20 billion cell capsule (Probiotic) 20,000 mmu cells PO DAILY 01/23/25 [History Confirmed 01/23/25] magnesium 200 mg tablet 200 mg PO DAILY 01/23/25 [History Confirmed 01/23/25] omega-3 fatty acids-fish oil 684 mg-1,200 mg capsule,delayed release 1 cap PO DAILY 01/23/25 [History Confirmed 01/23/25] Discharge Plan Discharge Patient Disposition: Xfer Short-Term Hosp Condition: Stable Prescriptions: No Action cholecalciferol (vitamin D3) 10 mcg (400 unit) capsule 10 mcg PO DAILY apple cider vinegar 600 mg capsule 600 mg PO DAILY calcium carbonate 500 mg calcium (1,250 mg) tablet 500 mg PO DAILY Hair,Skin and Nails Tablet 1 tab PO DAILY (DME) nebulizers Misc See Rx Instructions .ROUTE .MEDSUPPLY Qty: 1 0RF Rx Instructions: As directed acyclovir 200 mg capsule 200 mg PO DAILY Qty: 90 1RF albuterol sulfate [Ventolin HFA] 90 mcg/actuation HFA aerosol inhaler 2 puff INHALATION QID PRN (Reason: shortness of breath or wheezing) Qty: 6.7 5RF budesonide [Pulmicort] 0.5 mg/2 mL suspension for nebulization 0.5 mg inhalation BID Qty: 120 5RF Colace 100 mg capsule 100 mg PO DAILY Qty: 90 1RF doxepin 100 mg capsule 100 mg PO .at bedtime Qty: 90 1RF paroxetine HCl [Paxil] 20 mg tablet 20 mg PO DAILY Qty: 90 1RF Yupelri 175 mcg/3 mL solution for nebulization 175 mcg inhalation DAILY Qty: 90 1RF coenzyme Q10 [CoQ-10] 100 mg Capsule 100 mg PO DAILY garlic 300 mg Capsule 300 mg PO DAILY magnesium 200 mg Tablet 200 mg PO DAILY [place] 3 Fish Oil 684-1,200 mg Capsule,Delayed Release(Dr/Ec) 1 cap PO DAILY Probiotic 20 billion cell Capsule 20,000 mmu cells PO DAILY Rx Instructions: administer with a meal Referrals: Darrell Kay FNP-C [Primary Care Provider, Family Practice] Patient Instructions: Pain Management Transfer Attestations Time Spent in Transfer Care: greater than 30 min Quality Metrics Clinical Quality Measures [ No reported AMI, CVA or VTE this stay] Coding Level of Care Code Acute Code for g Fwd Diagnoses Acute diverticulitis K57.92
[2025-01-30] MEDS: lactulose oral liq 20 gm/30 mL UDC PO (14:33)
[2025-01-30] MEDS: lidocaine 1% 5 ML in potassium chloride premix 100 ML 52.5 ML IV ×2 (14:59→16:55)
--- NOTE | 2025-01-30 16:01 | PC.NURSE ---
Called report to Ellie Santana at [facility]
[2025-01-30] MEDS: ondansetron 2 mg/ML SDV 2 mL 4 MG IVP (16:55)
[2025-01-30] MEDS: pantoprazole 40 mg SDV IVP (16:59)
== END 2025-01-30 17:16 | disposition short-term general hospital (02) | DRG 392 ==
LOC: ER 15:37 → MEDSURG 16:58
PROVIDERS: Admitting Provider Family Medicine; Emergency Provider Family Medicine; PCP Nurse Practitioner; Visit Provider Student in an Organized Health Care Education/Training Program
DX: K57.32 Diverticulitis of large intestine without perforation or abscess without bleeding (principal); K63.89 Other specified diseases of intestine; K59.00 Constipation, unspecified; J44.9 Chronic obstructive pulmonary disease, unspecified; I48.91 Unspecified atrial fibrillation; E87.6 Hypokalemia; F41.9 Anxiety disorder, unspecified; Z87.891 Personal history of nicotine dependence
CPT/HCPCS: 36415; 36416; 51702; 71045; 74018; 74177; 80053; 80202; 81001; 82962; 83605; 83690; 83735; 84100; 84443; 85007; 85025; 85610; 87040; 87486; 87581; 87633; 93005; 94640; 94664; 96365; 96372; 99285; J1650; J1938; J2185; J2405; J2470; J2543; J3373; J3480; J3490; J7030; J7050; J7614; J8499; J9999

== ENCOUNTER → 2025-03-04 14:47 | Outpatient (BNVA) | payer MEDICARE, MEDICAID, SELFPAY | PROVIDERS: PCP Nurse Practitioner; Visit Provider Nurse Practitioner | DX: K57.30 Diverticulosis of large intestine without perforation or abscess without bleeding (principal) | CPT/HCPCS: 80053; 85025 ==

== ENCOUNTER 2025-03-24 10:27 | Outpatient (CLI) | payer MEDICARE, MEDICAID, SELFPAY ==
--- NOTE | 2025-03-24 11:00 | MM_ITS ---
WS: [id number] BILATERAL SCREENING DIGITAL TOMOSYNTHESIS MAMMOGRAM WITH CAD HISTORY: Z12.31 - Encounter for screening mammogram for malignant ... COMPARISON: 01/06/2024, 12/07/2022, 10/26/2021 Bilateral CC and MLO views with tomosynthesis and synthetic mammography submitted. Computer aided detection analyzed. Breast composition: There are scattered areas of fibroglandular density. No suspicious masses, microcalcifications or architectural distortion. Single benign calcification upper outer quadrant RIGHT breast. MM/MM scr BI tomosynthesis [id number] IMPRESSION: BI-RADS: 2 - Benign. FOLLOW UP: 1 Year Follow-up
== END 2025-03-24 10:28 | disposition home or self-care (01) ==
LOC: RAD 10:29
PROVIDERS: PCP Nurse Practitioner; Visit Provider Nurse Practitioner
DX: Z12.31 Encounter for screening mammogram for malignant neoplasm of breast (principal); R92.323 Mammographic fibroglandular density, bilateral breasts; R92.1 Mammographic calcification found on diagnostic imaging of breast
CPT/HCPCS: 77063; 77067